=== PATIENT | male | born 1950 | race Caucasian/White ===

== ENCOUNTER 2017-09-10 17:12 | Emergency (ER) | payer BC ==
[2017-09-10] MEDS ORDERED: NA CHLORIDE 0.9% 500 ML ONE (18:05)
--- NOTE | 2017-09-10 18:36 | RAD REPORT ---
EXAM DESCRIPTION: RAD - Chest Single View - 09/10/2017 6:21 pm CLINICAL HISTORY: Chest pain. COMPARISON: 02/09/2011 FINDINGS: Portable technique limits examination quality. The lungs are grossly clear. The heart is normal in size. No displaced fractures. IMPRESSION: No acute intrathoracic process suspected.
[2017-09-10 19:46] LABS: Potassium 3.6 mEq/L (3.6-5.0)
[2017-09-10 19:49] LABS: Absolute Monocytes 0.3 K/uL (0.1-1.3); Absolute Neutrophil 4.7 K/uL (1.8-8.0); Basophils % 0.4 % (0-1.3); Eosinophils % 1.9 % (0-4.4); Hematocrit 39.2 % (39.6-49.0); Lymphocytes % 16.2 % (15.3-44.8); MCH 31.4 pg (27.0-35.0); MPV 7.8 fL (7.6-11.3); Monocytes % 5.2 % (3.3-12.3); RBC Red Blood Cell Count 4.31 M/uL (4.33-5.43)
[2017-09-10 19:57] LABS: CKMB Creatine Kinase MB 1.6 ng/ml (0.3-4.0)
--- NOTE | 2017-09-10 20:24 | EDPHYS ---
Physician Documentation [facility] Name: Ata Ramos Jr Age: 66 yrs Sex: Male : 1950 Arrival Date: 09/10/2017 Time: 17:15 Bed 14 Private MD: ED Physician Mickey Black HPI: 09/10 19:19 This 66 yrs old Male presents to ER via Ambulatory with complaints of Chest rn Pain, Dizziness. 19:19 The patient or guardian reports chest pain that is located primarily in the substernal rn area. Onset: at 12:00. The pain does not radiate. Associated signs and symptoms: Pertinent positives: dizziness, Pertinent negatives: abdominal pain, shortness of breath, syncope, vomiting. The chest pain is described as a heaviness. Duration: The patient or guardian reports a single episode, that lasted 1 minute(s). Modifying factors: The symptoms are alleviated by nothing. the symptoms are aggravated by nothing. Severity of pain: At its worst the pain was moderate in the emergency department the pain has resolved. The patient has not experienced similar symptoms in the past. Reports chest pain for less than 1 minute, assoc with 2 minutes of dizziness, while walking, went away on its own, no fever/cough/sob/abd pain. No current pain or dizziness. Getting radiation therapy for prostate.. Historical: - Allergies: 17:22 Codeine; ae1 - Home Meds: 17:26 gabapentin 100 mg oral cap [Active]; metformin 500 mg Oral tab 1 tab 2 times per day ae1 [Active]; Zytiga 250 mg oral tab 4 tabs once daily [Active]; hydrochlorothiazide 12.5 mg Oral cap 1 cap once daily [Active]; tamsulosin 0.4 mg oral cp24 1 cap once daily [Active]; fenofibrate 160 mg oral tab 1 tab once daily [Active]; metoprolol tartrate 25 mg Oral tab 1 tab 2 times per day [Active]; prednisone 5 mg Oral tab once daily [Active]; - PMHx: 17:22 Cancer; ae1 17:26 neuropathy; Hypertension; ae1 - PSHx: 17:26 Cholecystectomy; Knee surgery; ae1 - Immunization history:: Adult Immunizations up to date, Pneumococcal vaccine is up to date, Flu vaccine is up to date. - Social history:: Smoking status: Patient/guardian denies using tobacco. - Family history:: not pertinent. - Hospitalizations: : No recent hospitalization is reported. ROS: 19:19 Constitutional: Negative for fever, chills, and weight loss, Eyes: Negative for injury, rn pain, redness, and discharge, Neck: Negative for injury, pain, and swelling, Cardiovascular: Negative for edema Respiratory: Negative for shortness of breath, cough, wheezing, and pleuritic chest pain, Abdomen/GI: Negative for abdominal pain, nausea, vomiting, diarrhea, and constipation, Back: Negative for injury and pain, MS/Extremity: Negative for injury and deformity, Skin: Negative for injury, rash, and discoloration, Neuro: Negative for headache, numbness, tingling, and seizure. Exam: 19:19 Constitutional: This is a well developed, well nourished patient who is awake, alert, rn and in no acute distress. Head/Face: Normocephalic, atraumatic. Eyes: Pupils equal round and reactive to light, extra-ocular motions intact. Lids and lashes normal. Conjunctiva and sclera are non-icteric and not injected. Cornea within normal limits. Periorbital areas with no swelling, redness, or edema. Neck: Trachea midline, no thyromegaly or masses palpated, and no cervical lymphadenopathy. Supple, full range of motion without nuchal rigidity, or vertebral point tenderness. No Meningismus. Cardiovascular: Regular rate and rhythm with a normal S1 and S2. No gallops, murmurs, or rubs. Normal PMI, no JVD. No pulse deficits. Respiratory: Lungs have equal breath sounds bilaterally, clear to auscultation and percussion. No rales, rhonchi or wheezes noted. No increased work of breathing, no retractions or nasal flaring. Abdomen/GI: Soft, non-tender, with normal bowel sounds. No distension or tympany. No guarding or rebound. No evidence of tenderness throughout. Skin: Warm, dry with normal turgor. Normal color with no rashes, no lesions, and no evidence of cellulitis. MS/ Extremity: Pulses equal, no cyanosis. Neurovascular intact. Full, normal range of motion. Equal circumference. Neuro: Awake and alert, GCS 15, oriented to person, place, time, and situation. Cranial nerves II-XII grossly intact. Motor strength 5/5 in all extremities. Sensory grossly intact. Cerebellar exam normal. Normal gait. Vital Signs: 17:19 BP 136 / 82; Pulse 92; Resp 18; Temp 97(TE); Pulse Ox 99% on R/A; Weight 102.06 kg (R); ae1 Height 6 ft. (182.88 cm); Pain 2/10; 19:40 BP 140 / 86; Pulse 89; Resp 19 S; Pulse Ox 99% on R/A; Pain 0/10; jd3 17:19 Body Mass Index 30.52 (102.06 kg, 182.88 cm) ae1 MDM: 17:47 Patient medically screened. rn 20:21 ED course: Reports normal stress test and ECHO by dr gotti 2 months ago. Feels fine, rn wants to go home. . 09/10 17:55 Order name: Basic Metabolic Panel; Complete Time: 20:19 rn 09/10 17:55 Order name: CBC with Diff; Complete Time: 20:19 rn 09/10 17:55 Order name: Ckmb; Complete Time: 20:19 rn 09/10 17:55 Order name: CPK; Complete Time: 20:19 rn 09/10 17:55 Order name: Troponin (emerg Dept Use Only); Complete Time: 20:19 rn 09/10 19:50 Order name: Urine Dipstick--Ancillary (enter results) em1 09/10 17:39 Order name: EKG Electrocardiogram; Complete Time: 19:08 EDMS 09/10 17:55 Order name: Urine Dipstick-Ancillary (obtain specimen); Complete Time: 19:49 rn 09/10 17:55 Order name: XRAY Chest (1 view); Complete Time: 18:42 rn 09/10 17:55 Order name: Cardiac monitoring; Complete Time: 19:08 rn 09/10 17:55 Order name: EKG - Nurse/Tech; Complete Time: 19:02 rn 09/10 17:55 Order name: IV Saline Lock; Complete Time: 18:59 rn 09/10 17:55 Order name: Labs collected and sent; Complete Time: 19:02 rn 09/10 17:55 Order name: O2 Per Protocol; Complete Time: 18:59 rn 09/10 17:55 Order name: O2 Sat Monitoring; Complete Time: 18:59 rn Administered Medications: 18:09 Drug: NS 0.9% 500 ml Route: IV; Rate: bolus; Site: right antecubital; rb1 20:30 Follow up: Response: No adverse reaction; IV Status: Completed infusion; IV Intake: jd3 500ml Disposition: 09/10/17 20:23 Discharged to Home. Impression: Chest pain, unspecified, Dizziness and giddiness. - Condition is Stable. - Discharge Instructions: Nonspecific Chest Pain, Dizziness. - Medication Reconciliation Form, Thank You Letter, Antibiotic Education, Prescription Opioid Use form. - Follow up: Private Physician; When: As needed; Reason: Recheck today's complaints, Re-evaluation by your physician. - Problem is new. - Symptoms have improved. Signatures: Dispatcher [employer] EDMS Mickey Black MD MD rn Barber, Rebecca RN RN rb1 Frederick Cruz RN RN ae1 Kunal Neil RN RN jd3
--- NOTE | 2017-09-10 20:24 | ER ---
Nurse's Notes [facility] Name: Ata Ramos Jr Age: 66 yrs Sex: Male : 1950 Arrival Date: 09/10/2017 Time: 17:15 Bed 14 Private MD: Diagnosis: Chest pain, unspecified;Dizziness and giddiness Presentation: 09/10 17:20 Presenting complaint: Patient states: Patient states he started having chest pain while ae1 walking at about noon today. C/o of SOB, dizziness at that time. Describes pain as "pressure". Transition of care: patient was not received from another setting of care. Onset of symptoms was September 10, 2017 at 12:00. 17:20 Method Of Arrival: Ambulatory ae1 17:20 Acuity: TORRES 3 ae1 17:45 Initial Sepsis Screen: Does the patient meet any 2 criteria? No. Patient's initial rb1 sepsis screen is negative. Does the patient have a suspected source of infection? No. Patient's initial sepsis screen is negative. Care prior to arrival: None. Triage Assessment: 17:28 General: Appears in no apparent distress. comfortable, Behavior is calm, cooperative. ae1 Pain: Complains of pain in anterior aspect of right upper chest, anterior aspect of left upper chest, xyphoid area and mid-sternal area. Neuro: Reports Generalized weakness. . Cardiovascular: Patient's skin is warm and dry. Patient is under radiation therapy currently for prostate cancer. Last treatment was today this morning. . Respiratory: Airway is patent Respiratory effort is even, unlabored. Historical: - Allergies: 17:22 Codeine; ae1 - Home Meds: 17:26 gabapentin 100 mg oral cap [Active]; metformin 500 mg Oral tab 1 tab 2 times per day ae1 [Active]; Zytiga 250 mg oral tab 4 tabs once daily [Active]; hydrochlorothiazide 12.5 mg Oral cap 1 cap once daily [Active]; tamsulosin 0.4 mg oral cp24 1 cap once daily [Active]; fenofibrate 160 mg oral tab 1 tab once daily [Active]; metoprolol tartrate 25 mg Oral tab 1 tab 2 times per day [Active]; prednisone 5 mg Oral tab once daily [Active]; - PMHx: 17:22 Cancer; ae1 17:26 neuropathy; Hypertension; ae1 - PSHx: 17:26 Cholecystectomy; Knee surgery; ae1 - Immunization history:: Adult Immunizations up to date, Pneumococcal vaccine is up to date, Flu vaccine is up to date. - Social history:: Smoking status: Patient/guardian denies using tobacco. - Family history:: not pertinent. - Hospitalizations: : No recent hospitalization is reported. Screenin:28 Abuse screen: Denies threats or abuse. Nutritional screening: No deficits noted. ae1 Tuberculosis screening: No symptoms or risk factors identified. Fall Risk None identified. Assessment: 17:45 General: Appears in no apparent distress. comfortable, Behavior is calm, cooperative, rb1 Denies fever. Pain: Complains of pain in chest and lower abdomen Pain does not radiate. Pain currently is 2 out of 10 on a pain scale. Pain began this morning. Neuro: Level of Consciousness is awake, alert, obeys commands, Oriented to person, place, time, situation. Cardiovascular: Capillary refill < 3 seconds is brisk in bilateral fingers. Respiratory: Airway is patent Respiratory effort is even, unlabored, Respiratory pattern is regular, symmetrical. GI: No signs and/or symptoms were reported involving the gastrointestinal system. : No signs and/or symptoms were reported regarding the genitourinary system. Derm: Skin is pink, warm \\T\\ dry. Musculoskeletal: Range of motion: intact in all extremities. 18:40 Reassessment: Patient appears in no apparent distress at this time. No changes from rb1 previously documented assessment. 19:37 Reassessment: Patient appears in no apparent distress at this time. Patient and/or jd3 family updated on plan of care and expected duration. Pain level reassessed. Patient is alert, oriented x 3, equal unlabored respirations, skin warm/dry/pink. Patient denies pain at this time. General: Appears in no apparent distress. comfortable, Behavior is calm, cooperative, appropriate for age. Pain: Denies pain. Pain does not radiate. Pain began 4 hours ago. Neuro: Level of Consciousness is awake, alert, obeys commands, Oriented to person, place, time, situation. Cardiovascular: Capillary refill < 3 seconds Patient's skin is warm and dry. Respiratory: Airway is patent Respiratory effort is even, unlabored, Respiratory pattern is regular, symmetrical. GI: Abdomen is round Patient currently denies abdominal pain. 20:31 Reassessment: Patient appears in no apparent distress at this time. Patient and/or jd3 family updated on plan of care and expected duration. Pain level reassessed. Patient is alert, oriented x 3, equal unlabored respirations, skin warm/dry/pink. pt reported understanding of discharge instructions, even and steady gait upon discharge Patient denies pain at this time. Vital Signs: 17:19 BP 136 / 82; Pulse 92; Resp 18; Temp 97(TE); Pulse Ox 99% on R/A; Weight 102.06 kg (R); ae1 Height 6 ft. (182.88 cm); Pain 2/10; 19:40 BP 140 / 86; Pulse 89; Resp 19 S; Pulse Ox 99% on R/A; Pain 0/10; jd3 17:19 Body Mass Index 30.52 (102.06 kg, 182.88 cm) ae1 ED Course: 17:15 Patient arrived in ED. mr 17:22 Triage completed. ae1 17:27 Arm band placed on right wrist. EKG completed in triage. Results shown to MD. ae1 17:28 Patient maintains SpO2 saturation greater than 95% on room air. ae1 17:31 EKG done, by surgical tech. reviewed by Matthias Cherry MD. at1 17:45 Patient has correct armband on for positive identification. Bed in low position. Call rb1 light in reach. Side rails up X 1. quality assurance monitor body on. Pulse ox on. NIBP on. 17:47 Mickey Black MD is Attending Physician. rn 18:03 Hanny Brand, TERRIE is Primary Nurse. rb1 18:15 Inserted saline lock: 20 gauge in right antecubital area, using aseptic technique. rb1 ,using aseptic technique. Inserted by [facility] parts counter associate Blood collected. 18:20 X-ray completed. Portable x-ray completed in exam room. Patient tolerated procedure kc2 well. 18:21 XRAY Chest (1 view) In Process Unspecified. EDMS 19:00 Report given to TERRIE Abdul. rb1 20:29 No provider procedures requiring assistance completed. IV discontinued, intact, jd3 bleeding controlled, No redness/swelling at site. Pressure dressing applied. Administered Medications: 18:09 Drug: NS 0.9% 500 ml Route: IV; Rate: bolus; Site: right antecubital; rb1 20:30 Follow up: Response: No adverse reaction; IV Status: Completed infusion; IV Intake: jd3 500ml Intake: 20:30 IV: 500ml; Total: 500ml. jd3 Outcome: 20:23 Discharge ordered by . rn 20:30 Discharged to home ambulatory, with family. jd3 20:30 Condition: stable 20:30 Discharge instructions given to patient, family, Instructed on discharge instructions, follow up and referral plans. Demonstrated understanding of instructions, follow-up care. 20:31 Patient left the ED. jd3 Signatures: Dispatcher [employer] [facility] Dominique Kurtz Roman, MD MD rn Mimi jacome, masking machine operator EKG Tat1 Hanny Brand, RN RN rb1 Renee Castle2 Frederick Cruz RN RN ae1 Kunal Neil RN RN jd3 Corrections: (The following items were deleted from the chart) 19:02 18:15 Inserted saline lock: 20 gauge in right antecubital area, using aseptic rb1 technique. Blood collected. rb1
[2017-09-10 20:38] LABS: Urine Blood NEGATIVE (NEG); Urine Glucose NEGATIVE (NEG); Urine Protein NEGATIVE (NEG); Urine Specific Gravity 1.025 (1.005-1.030)
--- NOTE | 2017-09-11 | EKG ---
Test Date: 2017-09-10 Test Time: 17:28:27 Wood Pole Treater: ABELARDO MEASUREMENT RESULTS: Intervals: Rate: 91 ND: 162 QRSD: 96 QT: 390 QTc: 479 [place]: P: 40 ND: 162 QRS: -31 T: 30 INTERPRETIVE STATEMENTS: Normal sinus rhythm Left axis deviation Minimal voltage criteria for LVH, may be normal variant Nonspecific T wave abnormality Prolonged QT Abnormal ECG Compared to ECG 12/10/2014 20:56:09 T-wave abnormality now present Prolonged QT interval now present Electronically Signed On 09-11-17 00:00:25 CDT by Wyatt Morris
== END 2017-09-10 20:31 | disposition home or self-care (01) ==
LOC: ER 17:12
DX: R07.9 Chest pain, unspecified (principal); R42 Dizziness and giddiness; I10 Essential (primary) hypertension; Z88.5 Allergy status to narcotic agent
CPT/HCPCS: 36415; 71045; 80048; 81003; 82550; 82553; 84484; 85025; 93005; 96360; 96361; 99285

== ENCOUNTER 2018-06-14 09:26 | Emergency (ER) | payer BC ==
--- NOTE | 2018-06-14 10:16 | RAD REPORT ---
EXAM DESCRIPTION: CT - Head Brain Wo Cont - 06/14/2018 10:01 am CLINICAL HISTORY: Headache COMPARISON: 2009 TECHNIQUE: Computed axial tomography of the head was obtained. IV contrast was not requested. All CT scans are performed using dose optimization technique as appropriate and may include automated exposure control or mA/KV adjustment according to patient size. FINDINGS: An intracranial bleed is not seen . The ventricles are normal in caliber. No extra-axial fluid collection is noted. Fluid within the sinuses/ mastoids is not seen. IMPRESSION: No acute intracranial abnormality is seen. If patient's symptoms persist MRI of the bra in would be recommended.
[2018-06-14] MEDS ORDERED: KETOROLAC 30 MG/ML INJ ONE (10:35)
[2018-06-14] MEDS ORDERED: METOCLOPRAMIDE 10 MG/2mL INJ ONE (10:35)
[2018-06-14] MEDS ORDERED: NA CHLORIDE 0.9% 500 ML ONE (10:35)
[2018-06-14] MEDS ORDERED: DIPHENHYDRAMINE 50 MG/ML VIAL ONE (10:35)
--- NOTE | 2018-06-14 10:52 | EDPHYS ---
Physician Documentation [facility] Name: Ata Ramos Jr Age: 67 yrs Sex: Male : 1950 Arrival Date: 06/14/2018 Time: 09:30 Bed 5 Private MD: Rick Jones ED Physician Leland Penaloza HPI: 06/14 10:30 This 67 yrs old Male presents to ER via Ambulatory with complaints of pm1 Headache. 10:30 The patient complains of pain to the forehead, left occipital area and right occipital pm1 area. The patient describes the headache as aching, constant. Onset: The symptoms/episode began/occurred 2 day(s) ago. Associated signs and symptoms: Pertinent positives: nausea, Pertinent negatives: dizziness, fever, neck stiffness, paresthesias, vision changes, vomiting, weakness, vertigo. Severity of symptoms: in the emergency department the pain is unchanged. Headache History: Denies prior headaches. The symptoms are alleviated by nothing. the symptoms are aggravated by nothing. The patient has not experienced similar symptoms in the past. The patient has not recently seen a physician, the patient's primary care provider is Dr. Jones. Historical: - Allergies: 09:31 Codeine; aa5 - Home Meds: 09:31 fenofibrate 160 mg Oral tab 1 tab once daily [Active]; gabapentin 100 mg Oral cap aa5 [Active]; hydrochlorothiazide 12.5 mg Oral cap 1 cap once daily [Active]; metformin 500 mg Oral tab 1 tab 2 times per day [Active]; metoprolol tartrate 25 mg Oral tab 1 tab 2 times per day [Active]; prednisone 5 mg Oral tab once daily [Active]; tamsulosin 0.4 mg Oral cp24 1 cap once daily [Active]; Zytiga 250 mg Oral tab 4 tabs once daily [Active]; - PMHx: 09:31 Hypertension; neuropathy; Prostate cancer in remission; Diabetes - NIDDM; "fluid aa5 retention"; - PSHx: 09:31 Cholecystectomy; Knee surgery; aa5 - Immunization history:: Adult Immunizations unknown. - Ebola Screening: : No symptoms or risks identified at this time. - Social history:: Smoking status: unknown. ROS: 10:30 Constitutional: Negative for fever, chills, and weight loss, Eyes: Negative for injury, pm1 pain, redness, and discharge, ENT: Negative for injury, pain, and discharge, Neck: Negative for injury, pain, and swelling, Cardiovascular: Negative for chest pain, palpitations, and edema, Respiratory: Negative for shortness of breath, cough, wheezing, and pleuritic chest pain. 10:30 Back: Negative for injury and pain, : Negative for injury, bleeding, discharge, and swelling, MS/Extremity: Negative for injury and deformity, Skin: Negative for injury, rash, and discoloration, Neuro: Negative for headache, weakness, numbness, tingling, and seizure. 10:30 Abdomen/GI: Positive for nausea, Negative for abdominal pain, vomiting, diarrhea, constipation. Exam: 10:30 Constitutional: This is a well developed, well nourished patient who is awake, alert, pm1 and in no acute distress. Eyes: Pupils equal round and reactive to light, extra-ocular motions intact. Lids and lashes normal. Conjunctiva and sclera are non-icteric and not injected. Cornea within normal limits. Periorbital areas with no swelling, redness, or edema. 10:30 ENT: Nares patent. No nasal discharge, no septal abnormalities noted. Tympanic membranes are normal and external auditory canals are clear. Oropharynx with no redness, swelling, or masses, exudates, or evidence of obstruction, uvula midline. Mucous membranes moist. Neck: Trachea midline, no thyromegaly or masses palpated, and no cervical lymphadenopathy. Supple, full range of motion without nuchal rigidity, or vertebral point tenderness. No Meningismus. Chest/axilla: Normal chest wall appearance and motion. Nontender with no deformity. No lesions are appreciated. Cardiovascular: Regular rate and rhythm with a normal S1 and S2. No gallops, murmurs, or rubs. Normal PMI, no JVD. No pulse deficits. Respiratory: Lungs have equal breath sounds bilaterally, clear to auscultation and percussion. No rales, rhonchi or wheezes noted. No increased work of breathing, no retractions or nasal flaring. Abdomen/GI: Soft, non-tender, with normal bowel sounds. No distension or tympany. No guarding or rebound. No evidence of tenderness throughout. Back: No spinal tenderness. No costovertebral tenderness. Full range of motion. Skin: Warm, dry with normal turgor. Normal color with no rashes, no lesions, and no evidence of cellulitis. MS/ Extremity: Pulses equal, no cyanosis. Neurovascular intact. Full, normal range of motion. 10:30 Head/face: Exam is negative for deformity, swelling, Noted is no obvious of injury or deformity except tenderness, of the forehead, left occipital area and right occipital area. 10:30 Neuro: Orientation: is normal, Mentation: is normal, Cranial nerves: CN II- XII are normal as tested, Cerebellar function: normal finger to nose testing, Motor: is normal, moves all fours, strength is normal, strength is 5/5 in all extremities, Gait: is steady, at a normal pace, without difficulty. Vital Signs: 09:41 BP 175 / 103; Pulse 75; Resp 16 S; Temp 98.1(O); Pulse Ox 97% on R/A; aa5 10:38 BP 171 / 97; Pulse 74; Resp 18; Pulse Ox 98% on R/A; la1 11:10 BP 162 / 96; Pulse 76; Resp 20; Pulse Ox 99% on R/A; aj MDM: 09:33 Patient medically screened. pm1 10:42 Data reviewed: vital signs. Data interpreted: Pulse oximetry: on room air is 98 %. pm1 Interpretation: normal. Counseling: I had a detailed discussion with the patient and/or guardian regarding: the historical points, exam findings, and any diagnostic results supporting the discharge/admit diagnosis, radiology results, the need for outpatient follow up, to return to the emergency department if symptoms worsen or persist or if there are any questions or concerns that arise at home. 10:42 ED course: Pain 07/06 from 03/05. pm1 06/14 09:39 Order name: CT Head Brain wo Cont pm1 06/14 10:17 Order name: CT; Complete Time: 10:23 EDMS Administered Medications: 10:37 Drug: Benadryl 12.5 mg Route: IVP; Site: right hand; la1 11:14 Follow up: Response: Pain is decreased aj 10:37 Drug: NS 0.9% 500 ml Route: IV; Rate: bolus; Site: right hand; la1 11:14 Follow up: Response: No adverse reaction; IV Status: Completed infusion; IV Intake: aj 500ml 10:38 Drug: Reglan 10 mg Route: IVP; Site: right hand; la1 11:12 Follow up: Response: Pain is decreased aj 10:38 Drug: TORadol 15 mg Route: IVP; Site: right hand; la1 11:13 Follow up: Response: Pain is decreased aj Disposition: 06/14/18 10:52 Discharged to Home. Impression: Headache. - Condition is Stable. - Discharge Instructions: General Headache Without Cause, Tension Headache, Adult. - Medication Reconciliation Form, Thank You Letter form. - Follow up: Emergency Department; When: As needed; Reason: Worsening of condition. Follow up: Private Physician; When: 2 - 3 days; Reason: Recheck today's complaints, Continuance of care, Re-evaluation by your physician. - Problem is new. - Symptoms have improved. Addendum: 06/16/2018 07:43 Co-signature as Attending Physician, Leland Penaloza MD I agree with the assessment and c moe plan of care. Signatures: Dispatcher [employer] EDMimi Lopez RN RN aj Anderson, Corey, MD MD cha Calderon, Audri RN RN aa5 Josh Carbajal RN RN la1 Live Arevalo, PROSPECTING DRILLER HELPER PROSPECTING DRILLER HELPER pm1 Corrections: (The following items were deleted from the chart) 06/14 11:15 10:52 06/14/2018 10:52 Discharged to Home. Impression: Headache. Condition is Stable. aj Forms are Medication Reconciliation Form, Thank You Letter, Antibiotic Education, Prescription Opioid Use. Follow up: Emergency Department; When: As needed; Reason: Worsening of condition. Follow up: Private Physician; When: 2 - 3 days; Reason: Recheck today's complaints, Continuance of care, Re-evaluation by your physician. Problem is new. Symptoms have improved. pm1
--- NOTE | 2018-06-14 10:52 | ER ---
Nurse's Notes [facility] Name: Ata Ramos Jr Age: 67 yrs Sex: Male : 1950 Arrival Date: 06/14/2018 Time: 09:30 Bed 5 Private MD: Rick Jones Diagnosis: Headache Presentation: 06/14 09:31 Presenting complaint: Patient states: headache to frontal and occipital area x 2 days aa5 ago. Pt states "I feel like it's hard to catch my breath at times". Pt reports nausea, denies vomiting, denies cough, denies fever. 09:31 Transition of care: patient was not received from another setting of care. Onset of aa5 symptoms was May 2018. Risk Assessment: Do you want to hurt yourself or someone else? Patient reports no desire to harm self or others. Care prior to arrival: None. 09:31 Method Of Arrival: Ambulatory aa5 09:31 Acuity: TORRES 3 aa5 09:42 Initial Sepsis Screen: Does the patient meet any 2 criteria? No. Patient's initial aa5 sepsis screen is negative. Does the patient have a suspected source of infection? No. Patient's initial sepsis screen is negative. Triage Assessment: 09:44 Headache History: The patient has had previous headaches and this one is similar to la1 previous episodes. General: Appears in no apparent distress. Behavior is calm, cooperative. Pain: Complains of pain in left base of the skull and forehead Pain currently is 5 out of 10 on a pain scale. Pain began 2-3 days ago. Also complains of no other associated symptoms. Historical: - Allergies: 09: Codeine; aa5 - Home Meds: 09:31 fenofibrate 160 mg Oral tab 1 tab once daily [Active]; gabapentin 100 mg Oral cap aa5 [Active]; hydrochlorothiazide 12.5 mg Oral cap 1 cap once daily [Active]; metformin 500 mg Oral tab 1 tab 2 times per day [Active]; metoprolol tartrate 25 mg Oral tab 1 tab 2 times per day [Active]; prednisone 5 mg Oral tab once daily [Active]; tamsulosin 0.4 mg Oral cp24 1 cap once daily [Active]; Zytiga 250 mg Oral tab 4 tabs once daily [Active]; - PMHx: 09:31 Hypertension; neuropathy; Prostate cancer in remission; Diabetes - NIDDM; "fluid aa5 retention"; - PSHx: 09:31 Cholecystectomy; Knee surgery; aa5 - Immunization history:: Adult Immunizations unknown. - Ebola Screening: : No symptoms or risks identified at this time. - Social history:: Smoking status: unknown. Screenin:44 Abuse screen: Denies threats or abuse. Nutritional screening: No deficits noted. la1 Tuberculosis screening: No symptoms or risk factors identified. Fall Risk None identified. Assessment: 09:43 General: Appears in no apparent distress. Behavior is calm, cooperative. Pain: la1 Complains of pain in forehead and left base of the skull. Neuro: Level of Consciousness is awake, alert, obeys commands, Oriented to person, place, time, situation, Moves all extremities. Full function Gait is steady, Speech is normal, Facial symmetry appears normal, Pupils are PERRLA. Cardiovascular: Capillary refill < 3 seconds Patient's skin is warm and dry. Respiratory: Airway is patent Respiratory effort is even, unlabored, Respiratory pattern is regular, symmetrical, Breath sounds are clear bilaterally. GI: No signs and/or symptoms were reported involving the gastrointestinal system. : No signs and/or symptoms were reported regarding the genitourinary system. 10:38 Reassessment: Patient appears in no apparent distress at this time. No changes from la1 previously documented assessment. Patient and/or family updated on plan of care and expected duration. Pain level reassessed. Patient is alert, oriented x 3, equal unlabored respirations, skin warm/dry/pink. Vital Signs: 09:41 BP 175 / 103; Pulse 75; Resp 16 S; Temp 98.1(O); Pulse Ox 97% on R/A; aa5 10:38 BP 171 / 97; Pulse 74; Resp 18; Pulse Ox 98% on R/A; la1 11:10 BP 162 / 96; Pulse 76; Resp 20; Pulse Ox 99% on R/A; aj ED Course: 09:30 Patient arrived in ED. mr 09:30 Rick Jones DO is Private Physician. mr 09:31 Arm band placed on Patient placed in an exam room, on a stretcher. aa5 09:32 Live Arevalo NP is PHCP. pm1 09:32 Leland Penaloza MD is Attending Physician. pm1 09:36 Josh Carbajal, RN is Primary Nurse. la1 09:37 Triage completed. aa5 09:44 Call light in reach. Side rails up X 1. la1 10:00 CT completed. Patient moved to CT via wheelchair. Patient moved back from LA. bq 11:10 No provider procedures requiring assistance completed. IV discontinued, bleeding aj controlled, No redness/swelling at site. Pressure dressing applied, 22 to right hand. Administered Medications: 10:37 Drug: Benadryl 12.5 mg Route: IVP; Site: right hand; la1 11:14 Follow up: Response: Pain is decreased aj 10:37 Drug: NS 0.9% 500 ml Route: IV; Rate: bolus; Site: right hand; la1 11:14 Follow up: Response: No adverse reaction; IV Status: Completed infusion; IV Intake: aj 500ml 10:38 Drug: Reglan 10 mg Route: IVP; Site: right hand; la1 11:12 Follow up: Response: Pain is decreased aj 10:38 Drug: TORadol 15 mg Route: IVP; Site: right hand; la1 11:13 Follow up: Response: Pain is decreased aj Intake: 11:14 IV: 500ml; Total: 500ml. aj Outcome: 10:52 Discharge ordered by MD. pm1 11:10 Discharged to home ambulatory. aj 11:10 Condition: good 11:10 Discharge instructions given to patient, Instructed on discharge instructions, follow up and referral plans. Demonstrated understanding of instructions, follow-up care. 11:15 Patient left the ED. aj Signatures: Mimi Latham RN Petra Farrell Meredith Oh Zenobia Walsh RN RN [facility] Josh Carbajal, TERRIE FALCON [facility] Live Arevalo NP GENERAL OFFICE ASSOCIATE pm1
== END 2018-06-14 11:15 | disposition home or self-care (01) ==
LOC: ER 09:26
DX: R51 Headache (principal); I10 Essential (primary) hypertension; Z88.6 Allergy status to analgesic agent
CPT/HCPCS: 70450; J2765

== ENCOUNTER 2018-09-20 09:32 | Emergency (ER) | payer BC ==
[2018-09-20 10:27] LABS: Absolute Lymphocytes (CBC) 1.1 K/uL (0.7-4.9); Absolute Monocytes 0.4 K/uL (0.1-1.3); Absolute Neutrophil 3.7 K/uL (1.8-8.0); Basophils % 1.5 % (0-1.3); Lymphocytes % 20.1 % (15.3-44.8); Monocytes % 7.7 % (3.3-12.3); RBC Red Blood Cell Count 4.37 M/uL (4.33-5.43)
[2018-09-20 10:34] LABS: Potassium 3.9 mmol/L (3.5-5.1)
--- NOTE | 2018-09-20 11:00 | RAD REPORT ---
EXAM DESCRIPTION: CT - Head Brain Wo Cont - 09/20/2018 10:33 am CLINICAL HISTORY: Numbness COMPARISON: May 2018 TECHNIQUE: Computed axial tomography of the head was obtained. IV contrast was not requested. All CT scans are performed using dose optimization technique as appropriate and may include automated exposure control or mA/KV adjustment according to patient size. FINDINGS: An intracranial bleed is not seen . The ventricles are normal in caliber. No extra-axial fluid collection is noted. Fluid within the sinuses/ mastoids is not seen. IMPRESSION: No acute intracranial abnormality is seen. If patient's symptoms persist MRI of the bra in would be recommended.
[2018-09-20] MEDS ORDERED: NA CHLORIDE 0.9% 500 ML ONE ×2 (11:15→12:17)
--- NOTE | 2018-09-20 12:31 | RAD REPORT ---
EXAM DESCRIPTION: Nano Angio09/20/2018 11:59 am CLINICAL HISTORY: Left facial numbness COMPARISON: None TECHNIQUE: 50 cc Isovue 370 was administered intravenously. 3D MIP reconstruction performed All CT scans are performed using dose optimization technique as appropriate and may include automated exposure control or mA/KV adjustment according to patient size. FINDINGS: The common carotid, internal carotid and external carotid arteries bilaterally do not dem onstrate a significant stenosis. Vertebral arteries are codominant. An aneurysm is not seen Spondylosis involves cervical spine resulting in central and foraminal stenosis IMPRESSION: Unremarkable evaluation of the carotid and vertebral arteries NASCET criteria used. Mild 0-49% stenosis Moderate 50-69% stenosis Severe 70-99% stenosis
--- NOTE | 2018-09-20 12:45 | RAD REPORT ---
EXAM DESCRIPTION: CTHead angio09/20/2018 11:59 am CLINICAL HISTORY: Left facial numbness COMPARISON: None TECHNIQUE: CT angiogram of the head was obtained. 3D MIPS reconstruction performed. All CT scans are performed using dose optimization technique as appropriate and may include automated exposure control or mA/KV adjustment according to patient size. FINDINGS: The basilar, internal carotid, anterior cerebral, middle cerebral and posterior cerebral a rteries are normal caliber. An aneurysm is not seen. A significant stenosis is not noted. origin right posterior cerebral artery An 8 millimeter filling defect is present within the right transverse sinus IMPRESSION: 8 millimeter filling defect within the right transverse sinus may indicate thrombus. Ano ther consideration is that this represents a prominent arachnoid granulation. If the patient has clin ical symptoms to suggest thrombus MRI and MRV of the brain would be recommended. Unremarkable MRA brain
--- NOTE | 2018-09-20 13:04 | ER ---
Nurse's Notes [facility] Name: Ata Ramos Jr Age: 67 yrs Sex: Male : 1950 Arrival Date: 09/20/2018 Time: 09:33 Bed 8 Private MD: Diagnosis: Cerebral venous sinus thrombosis;Paresthesia of skin Presentation: 09/20 09:43 Presenting complaint: Patient states: left facial numbness and tingling that he noticed iw when he woke up this morning at 0600, went to bed around 930 pm, pt denies weakness, no facial droop noted. pt also states he has been having neck pain. Transition of care: patient was not received from another setting of care. Onset of symptoms was September 20, 2018. 09:43 Method Of Arrival: Ambulatory iw 09:43 Acuity: TORRES 3 iw 09:44 Risk Assessment: Do you want to hurt yourself or someone else? Patient reports no hj desire to harm self or others. Initial Sepsis Screen: Does the patient meet any 2 criteria? No. Patient's initial sepsis screen is negative. Does the patient have a suspected source of infection? No. Patient's initial sepsis screen is negative. Care prior to arrival: None. Historical: - Allergies: 09:48 Codeine; iw - Home Meds: 09:49 fenofibrate 160 mg Oral tab 1 tab once daily [Active]; gabapentin 100 mg Oral tab iw [Active]; hydrochlorothiazide 12.5 mg Oral tab 1 cap once daily [Active]; metformin 500 mg Oral tab 1 tab 2 times per day [Active]; metoprolol tartrate 25 mg Oral tab 1 tab 2 times per day [Active]; prednisone 5 mg Oral tab once daily [Active]; tamsulosin 0.4 mg Oral cp24 1 cap once daily [Active]; Zytiga 250 mg Oral tab 4 tabs once daily [Active]; - PMHx: 09:48 "fluid retention"; Cancer; Diabetes - NIDDM; Hypertension; neuropathy; Prostate cancer iw in remission; - PSHx: 09:48 Cholecystectomy; Knee surgery; iw - Immunization history:: Adult Immunizations up to date. - Social history:: Smoking status: Patient/guardian denies using tobacco, Patient/guardian denies using alcohol. - Ebola Screening: : Patient negative for fever greater than or equal to 101.5 degrees Fahrenheit, and additional compatible Ebola Virus Disease symptoms Patient denies exposure to infectious person Patient denies travel to an Ebola-affected area in the 21 days before illness onset. - Family history:: not pertinent. - Hospitalizations: : No recent hospitalization is reported. Screenin:44 Abuse screen: Denies threats or abuse. Denies injuries from another. Nutritional hj screening: No deficits noted. Tuberculosis screening: No symptoms or risk factors identified. Fall Risk None identified. Assessment: 09:43 General: Appears in no apparent distress. uncomfortable, Behavior is calm, cooperative, hj appropriate for age. Pain: Complains of pain in sinuses. Neuro: Level of Consciousness is awake, alert, obeys commands, Oriented to person, place, time, situation, Appropriate for age Reports numbness in left cheek and left jaw Denies weakness blurred vision dizziness, difficulty swallowing, paresthesias diplopia. Cardiovascular: Capillary refill < 3 seconds Patient's skin is warm and dry. Respiratory: Airway is patent Respiratory effort is even, unlabored, Respiratory pattern is regular, symmetrical. GI: No signs and/or symptoms were reported involving the gastrointestinal system. : No signs and/or symptoms were reported regarding the genitourinary system. EENT: No signs and/or symptoms were reported regarding the EENT system. Derm: No signs and/or symptoms reported regarding the dermatologic system. Musculoskeletal: No signs and/or symptoms reported regarding the musculoskeletal system. 10:30 Reassessment: Patient and/or family updated on plan of care and expected duration. Pain hj level reassessed. Patient is alert, oriented x 3, equal unlabored respirations, skin warm/dry/pink. awaiting results and POC;. 11:30 Reassessment: Patient and/or family updated on plan of care and expected duration. Pain hj level reassessed. Patient is alert, oriented x 3, equal unlabored respirations, skin warm/dry/pink. Patient states feeling better. 12:08 Reassessment: Patient and/or family updated on plan of care and expected duration. Pain hj level reassessed. Patient is alert, oriented x 3, equal unlabored respirations, skin warm/dry/pink. awaiting results of CT angio and POC:. 14:07 Reassessment: report given to Ruth Alcantar RN. hj Vital Signs: 09:48 BP 167 / 96; Pulse 93; Resp 16; Pulse Ox 97% on R/A; Weight 104.33 kg; Height 6 ft. iw (182.88 cm); Pain 0/10; 09:48 BP 167 / 96; Pulse 85; Resp 18; Temp 97.1(TE); Pulse Ox 96% on R/A; Weight 104.33 kg; hj Height 6 ft. 0 in. (182.88 cm); Pain 0/10; 10:17 BP 185 / 93; Pulse 84; Resp 18; Pulse Ox 100% on R/A; hj 12:08 BP 168 / 89; Pulse 85; Resp 18; Pulse Ox 100% on R/A; hj 13:09 BP 155 / 90; Pulse 85; Resp 18; Pulse Ox 98% on R/A; hj 09:48 Body Mass Index 31.19 (104.33 kg, 182.88 cm) iw ED Course: 09:33 Patient arrived in ED. as 09:41 Jaspreet Ansari, RN is Primary Nurse. hj 09:44 Arm band placed on right wrist. hj 09:45 Mickey Black MD is Attending Physician. rn 09:45 Patient has correct armband on for positive identification. Bed in low position. Call hj light in reach. Side rails up X 1. 09:47 Triage completed. iw 10:15 Initial lab(s) drawn, by me, sent to lab. Inserted saline lock: 20 gauge in right hj antecubital area, using aseptic technique. Blood collected. 10:17 CBC with Diff Sent. hj 10:17 Basic Metabolic Panel Sent. hj 10:24 CT completed. Patient tolerated procedure well. Patient moved back from CT. bq 10:25 EKG done, by ED staff, reviewed by Mickey Black MD. jb1 10:34 CT Head Brain wo Cont In Process Unspecified. EDMS 11:59 CT Head Angio In Process Unspecified. EDMS 11:[address] In Process Unspecified. EDMS 12:58 transfer initiated with Asya at the [facility] transfer center. eb 13:[address] Rico the neurologist communications superintendent from [facility] with Dr. Black for eb patient transfer consultation. 13:[address] Delvalle the hospitalist communications superintendent from [facility] with Dr. Black for eb patient transfer consultation. 13:28 administrative approval given by Asya Penaloza at the [facility] center/ Dr. clive Delvalle has accepted the patient in transfer at [facility]/ Bed 2247/ report to be called to [phone]. 14:04 No provider procedures requiring assistance completed. Patient transferred, IV remains hj in place. intact. Administered Medications: 11:00 Drug: NS 0.9% 500 ml Route: IV; Rate: bolus; Site: right antecubital; hj 12:00 Follow up: IV Status: Completed infusion; IV Intake: 500ml hj 12:02 Drug: NS 0.9% 500 ml Route: IV; Rate: bolus; Site: right antecubital; hj 13:00 Follow up: IV Status: Completed infusion; IV Intake: 500ml hj 13:01 Drug: PlaVIX 75 mg Route: PO; hj 13:06 Follow up: Response: No adverse reaction hj Intake: 12:00 IV: 500ml; Total: 500ml. hj 13:00 IV: 500ml; Total: 1000ml. hj Outcome: 13:03 ER care complete, transfer ordered by . rn 14:04 Transferred by ground EMS to [facility], Transfer form completed. hj X-rays sent w/ patient. 14:04 Condition: stable 14:04 Instructed on the need for transfer, Demonstrated understanding of instructions. 14:45 Patient left the ED. Signatures: Dispatcher [employer] EDMS Sourav Garcia Betty bq Martinez, Amelia as Williams, Irene, RN RN iw Nieto, Roman, MD MD rn Joaquin, Henry, RN RN hj Botello, Elizabeth eb Corrections: (The following items were deleted from the chart) 09:47 09:43 Neuro: Level of Consciousness is awake, alert, obeys commands, Oriented to person, place, time, situation, Appropriate for age hj 09:48 09:43 Presenting complaint: Patient states: left facial numbness and tingling that he iw noticed when he woke up this morning at 0600, went to bed around 930 pm, pt denies weakness, no facial droop noted iw 13:10 13:09 BP 140 / 89; Pulse 85bpm; Resp 18bpm; Pulse Ox 100% RA; hj hj
--- NOTE | 2018-09-20 13:04 | EDPHYS ---
Physician Documentation [facility] Name: Ata Ramos Jr Age: 67 yrs Sex: Male : 1950 Arrival Date: 09/20/2018 Time: 09:33 Bed 8 Private MD: ED Physician Mickey Black HPI: 09/20 10:12 This 67 yrs old Male presents to ER via Ambulatory with complaints of rn Numbness Of Face. 10:12 The patient's problem is reported as paresthesias, in left side of face. Onset: The rn symptoms/episode began/occurred at an unknown time. Context: symptoms became apparent upon waking. The symptoms are alleviated by nothing. The symptoms are aggravated by nothing. Severity of symptoms: At their worst the symptoms were mild in the emergency department the symptoms are unchanged. The patient has not experienced similar symptoms in the past. The patient has not recently seen a physician. Reports woke up with left facial numbness, no weakness, no trauma, no fever, no vision changes. No speech problems. Denies dental complaints or swelling.. Historical: - Allergies: 09:48 Codeine; iw - Home Meds: 09:49 fenofibrate 160 mg Oral tab 1 tab once daily [Active]; gabapentin 100 mg Oral tab iw [Active]; hydrochlorothiazide 12.5 mg Oral tab 1 cap once daily [Active]; metformin 500 mg Oral tab 1 tab 2 times per day [Active]; metoprolol tartrate 25 mg Oral tab 1 tab 2 times per day [Active]; prednisone 5 mg Oral tab once daily [Active]; tamsulosin 0.4 mg Oral cp24 1 cap once daily [Active]; Zytiga 250 mg Oral tab 4 tabs once daily [Active]; - PMHx: 09:48 "fluid retention"; Cancer; Diabetes - NIDDM; Hypertension; neuropathy; Prostate cancer iw in remission; - PSHx: 09:48 Cholecystectomy; Knee surgery; iw - Immunization history:: Adult Immunizations up to date. - Social history:: Smoking status: Patient/guardian denies using tobacco, Patient/guardian denies using alcohol. - Ebola Screening: : Patient negative for fever greater than or equal to 101.5 degrees Fahrenheit, and additional compatible Ebola Virus Disease symptoms Patient denies exposure to infectious person Patient denies travel to an Ebola-affected area in the 21 days before illness onset. - Family history:: not pertinent. - Hospitalizations: : No recent hospitalization is reported. ROS: 10:12 Constitutional: Negative for fever, chills, and weight loss, Eyes: Negative for injury, rn pain, redness, and discharge, Neck: Negative for injury, pain, and swelling, Cardiovascular: Negative for chest pain, palpitations, and edema, Respiratory: Negative for shortness of breath, cough, wheezing, and pleuritic chest pain, Abdomen/GI: Negative for abdominal pain, nausea, vomiting, diarrhea, and constipation, MS/Extremity: Negative for injury and deformity, Skin: Negative for injury, rash, and discoloration, Neuro: Negative for headache, weakness, and seizure. Exam: 10:12 Constitutional: This is a well developed, well nourished patient who is awake, alert, rn and in no acute distress. Head/Face: Normocephalic, atraumatic. Eyes: Pupils equal round and reactive to light, extra-ocular motions intact. Lids and lashes normal. Conjunctiva and sclera are non-icteric and not injected. Cornea within normal limits. Periorbital areas with no swelling, redness, or edema. ENT: No facial swelling, no oral swelling Neck: Trachea midline, no thyromegaly or masses palpated, and no cervical lymphadenopathy. Supple, full range of motion without nuchal rigidity, or vertebral point tenderness. No Meningismus. Skin: Warm, dry with normal turgor. Normal color with no rashes, no lesions, and no evidence of cellulitis. MS/ Extremity: Pulses equal, no cyanosis. Neurovascular intact. Full, normal range of motion. Equal circumference. Neuro: Awake and alert, GCS 15, oriented to person, place, time, and situation. + left cheek/jawline paresthesias. No facial droop. Motor strength 5/5 in all extremities. Sensory grossly intact. Cerebellar exam normal. 11:42 ECG was reviewed by the Attending Physician. rn Vital Signs: 09:48 BP 167 / 96; Pulse 93; Resp 16; Pulse Ox 97% on R/A; Weight 104.33 kg; Height 6 ft. iw (182.88 cm); Pain 0/10; 09:48 BP 167 / 96; Pulse 85; Resp 18; Temp 97.1(TE); Pulse Ox 96% on R/A; Weight 104.33 kg; hj Height 6 ft. 0 in. (182.88 cm); Pain 0/10; 10:17 BP 185 / 93; Pulse 84; Resp 18; Pulse Ox 100% on R/A; hj 12:08 BP 168 / 89; Pulse 85; Resp 18; Pulse Ox 100% on R/A; hj 13:09 BP 155 / 90; Pulse 85; Resp 18; Pulse Ox 98% on R/A; hj 09:48 Body Mass Index 31.19 (104.33 kg, 182.88 cm) iw MDM: 09:45 Patient medically screened. rn 13:01 Differential diagnosis: CVA, TIA, metabolic disorder. Data reviewed: vital signs, rn nurses notes, lab test result(s), EKG, radiologic studies, CT scan, and as a result, I will admit patient. Counseling: I had a detailed discussion with the patient and/or guardian regarding: the historical points, exam findings, and any diagnostic results supporting the discharge/admit diagnosis, lab results, radiology results, the need to transfer to another facility, for higher level of care, [facility] does not immediately have the required specialist. Response to treatment: the patient's symptoms have mildly improved after treatment. ED course: Pt with normal ct head, is outside of TPA window due to waking up with symptoms, mildly improved, but CTA head shows filling defect in transverse sinus, trying to organize transfer to [facility] for neurology. . 09/20 10:03 Order name: CBC with Diff; Complete Time: 11:00 09/20 10:03 Order name: Basic Metabolic Panel; Complete Time: 11:00 09/20 10:03 Order name: CT Head Brain wo Cont; Complete Time: 11:06 rn 09/20 11:12 Order name: CT Head Angio; Complete Time: 12:49 rn 09/20 11:12 Order name: Neck Angio CT; Complete Time: 12:49 rn 09/20 10:03 Order name: IV Start; Complete Time: 10:15 09/20 10:03 Order name: EKG; Complete Time: 10:03 09/20 10:03 Order name: EKG - Nurse/Tech; Complete Time: 10:15 rn EC:42 Rate is 84 beats/min. Rhythm is regular. QRS [place] is Normal. IN interval is normal. QRS rn interval is normal. T waves are Normal. No ST changes noted. Clinical impression: NSR w/ Non-specific ST/T Changes. Interpreted by me. Administered Medications: 11:00 Drug: NS 0.9% 500 ml Route: IV; Rate: bolus; Site: right antecubital; hj 12:00 Follow up: IV Status: Completed infusion; IV Intake: 500ml hj 12:02 Drug: NS 0.9% 500 ml Route: IV; Rate: bolus; Site: right antecubital; hj 13:00 Follow up: IV Status: Completed infusion; IV Intake: 500ml hj 13:01 Drug: PlaVIX 75 mg Route: PO; hj 13:06 Follow up: Response: No adverse reaction Disposition: 09/20/18 13:03 Transfer ordered to [facility]. Diagnosis are Cerebral venous sinus thrombosis, Paresthesia of skin. - Reason for transfer: Higher level of care. - Accepting physician is Dr. Rico. - Condition is Stable. - Problem is new. - Symptoms have improved. Signatures: Dispatcher [employer] Marcy Tong RN RN iw Nieto, Roman, MD MD rn Joaquin, Henry, RN RN Corrections: (The following items were deleted from the chart) 13:24 13:03 09/20/2018 13:03 Transfer ordered to [facility]. Diagnosis is rn Cerebral venous sinus thrombosis; Paresthesia of skin. Reason for transfer: Higher level of care. Accepting physician is . Condition is Stable. Problem is new. Symptoms have improved. rn 14:45 13:24 09/20/2018 13:03 Transfer ordered to [facility]. Diagnosis is hj Cerebral venous sinus thrombosis; Paresthesia of skin. Reason for transfer: Higher level of care. Accepting physician is Dr. Rico. Condition is Stable. Problem is new. Symptoms have improved. rn
[2018-09-20] MEDS ORDERED: CLOPIDOGREL 75 MG TABLET ONE (13:17)
--- NOTE | 2018-09-21 07:49 | EKG ---
Test Date: 2018-09-20 Test Time: 10:17:32 Systems Support Officer: HANH MEASUREMENT RESULTS: Intervals: Rate: 84 MI: 150 QRSD: 92 QT: 382 QTc: 451 Clark: P: 43 MI: 150 QRS: -26 T: -1 INTERPRETIVE STATEMENTS: Normal sinus rhythm Voltage criteria for left ventricular hypertrophy Nonspecific ST abnormality Abnormal ECG Compared to ECG 09/10/2017 17:28:27 ST (T wave) deviation now present Left-axis deviation no longer present T-wave abnormality no longer present Prolonged QT interval no longer present Electronically Signed On 09-21-18 07:47:33 CDT by Alok Pedraza
== END 2018-09-20 14:45 | disposition short-term general hospital (02) ==
LOC: ER 09:32
DX: G08 Intracranial and intraspinal phlebitis and thrombophlebitis (principal); I10 Essential (primary) hypertension; E11.9 Type 2 diabetes mellitus without complications; Z85.46 Personal history of malignant neoplasm of prostate; Z88.5 Allergy status to narcotic agent
CPT/HCPCS: 36415; 70450; 70496; 70498; 80048; 85025; 93005; 96360; 96361; 99285; Q9967

== ENCOUNTER 2019-05-26 21:02 | Observation (INO) | payer BC ==
--- OUTSIDE RECORDS SUMMARY | 2019-05-26 21:04 | XMS REPORT ---
:1950 [facility] [address] [place] [address] Care Team Providers Name Role Phone JUANITA EMMANUEL Unavailable Unavailable HENRIK MARINO Unavailable Unavailable Problems This patient has no known problems. Allergies, Adverse Reactions, Alerts This patient has no known allergies or adverse reactions. Medications This patient has no known medications. Results Test Description Test Time Test Comments Text Results Atomic Results Result Comments CT, ABDOMEN 2019-04-13 10:33:[address] of the chest, abdomen and pelvis, with contrast Clinical History: C61 Technique: CT of the chest, abdomen and pelvis is performed with intravenous contrast administration. This exam was performed according to our departmental dose optimization program which includes automated exposure control, adjustment of the mA and/or kV according to patient's size and/or use of iterative reconstructive technique. Comparison Film: None Discussion: Visualized thyroid gland is normal. There is no supraclavicular, axillary, mediastinal or hilar lymphadenopathy. Heart and pericardium is unremarkable. There are a few calcified granulomas in both lungs. No mass or consolidation, no pleural effusion. The central airways are patent, no bronchiectasis, or bronchial wall thickening. Liver is fatty. No biliary ductal dilatation, gallbladder has been removed. The spleen, pancreas, adrenal glands are unremarkable. Kidneys demonstrate no mass, or hydronephrosis. There is a 2 mm nonobstructive stone in the left kidney. A small cortical defect is also seen on the left. No evidence of bowel obstruction, or abnormal bowel wall thickening. There is mild colonic diverticulosis, no evidence of acute diverticulitis. Normal appendix. In the pelvis, bladder is decompressed and unremarkable. Prostate gland contains three small metallic densities likely reflecting fiducial markers. There is wqbk-ey-pasivhdl vascular calcification. No lymphadenopathy, or ascites. Osseous structures demonstrate degenerative changes. Impression: No evidence of lymphadenopathy or distant metastasis in the chest abdomen or pelvis. Hepatic steatosis. Status post cholecystectomy. 2 mm nonobstructive stone in the left kidney. Mild colonic diverticulosis. Signed: Ranjit Earlyeport Verified Date/Time: 04/13/2019 10:33:48 Reading Location: [address] Ortho Consult Reading Room , CHEST, WITH IV CONTRAST 2019-04-13 10:33:[address] of the chest, abdomen and pelvis, with contrast Clinical History: C61 Technique: CT of the chest, abdomen and pelvis is performed with intravenous contrast administration. This exam was performed according to our departmental dose optimization program which includes automated exposure control, adjustment of the mA and/or kV according to patient's size and/or use of iterative reconstructive technique. Comparison Film: None Discussion: Visualized thyroid gland is normal. There is no supraclavicular, axillary, mediastinal or hilar lymphadenopathy. Heart and pericardium is unremarkable. There are a few calcified granulomas in both lungs. No mass or consolidation, no pleural effusion. The central airways are patent, no bronchiectasis, or bronchial wall thickening. Liver is fatty. No biliary ductal dilatation, gallbladder has been removed. The spleen, pancreas, adrenal glands are unremarkable. Kidneys demonstrate no mass, or hydronephrosis. There is a 2 mm nonobstructive stone in the left kidney. A small cortical defect is also seen on the left. No evidence of bowel obstruction, or abnormal bowel wall thickening. There is mild colonic diverticulosis, no evidence of acute diverticulitis. Normal appendix. In the pelvis, bladder is decompressed and unremarkable. Prostate gland contains three small metallic densities likely reflecting fiducial markers. There is jakb-up-spjgqtcx vascular calcification. No lymphadenopathy, or ascites. Osseous structures demonstrate degenerative changes. Impression: No evidence of lymphadenopathy or distant metastasis in the chest abdomen or pelvis. Hepatic steatosis. Status post cholecystectomy. 2 mm nonobstructive stone in the left kidney. Mild colonic diverticulosis. Signed: Ranjit Earlyeport Verified Date/Time: 04/13/2019 10:33:48 Reading Location: [address] Ortho Consult Reading Room -CREATININE 2019-04-10 14:34:00 Test Item Value Reference Range Comments POC-CREATININE (BEAKER) (test 1.0 mg/dL 0.6-1.[address] [facility] 7200 uolb=4317) [facility] [address] POC-EGFR (BEAKER) (test 75 mL/min/1.73M2 ocjt=0855) [id number] 07:33:00 Test Item Value Reference Range Comments MAGNESIUM (BEAKER) (test 1.9 mg/dL 1.6-2.6 Specimen slightly hemolyzed icsd=880) BASIC METABOLIC [id number] 06:04:00 Test Item Value Reference Range Comments SODIUM (BEAKER) (test 139 meq/L 136-145 dphl=420) POTASSIUM (BEAKER) (test 3.9 meq/L 3.5-5.1 Specimen slightly qsjq=537) hemolyzed CHLORIDE (BEAKER) (test 104 meq/L 98-107 mxla=338) CO2 (BEAKER) (test 25 meq/L 22-29 ippv=051) BLOOD UREA NITROGEN 19 mg/dL 7-21 (BEAKER) (test zpbn=901) CREATININE (BEAKER) (test 0.94 mg/dL 0.57-1.25 Specimen slightly awdp=468) hemolyzed GLUCOSE RANDOM (BEAKER) 160 mg/dL 70-105 (test atia=755) CALCIUM (BEAKER) (test 9.5 mg/dL 8.4-10.2 xksx=045) EGFR (BEAKER) (test 81 mL/min/1.73 sq m ESTIMATED GFR IS NOT hmul=9941) ACCURATE CREATININE CLEARANCE IN PREDICTING GLOMERULAR FILTRATION RATE. ESTIMATED GFR IS NOT APPLICABLE FOR DIALYSIS PATIENTS. CBC W/PLT COUNT & AUTO [id number] 05:43:00 Test Item Value Reference Range Comments WHITE BLOOD CELL COUNT (BEAKER) (test henv=265) 5.2 K/ L 3.5-10.5 RED BLOOD CELL COUNT (BEAKER) (test boyr=577) 4.00 M/ L 4.63-6.08 HEMOGLOBIN (BEAKER) (test ecdg=375) 12.5 GM/DL 13.7-17.5 HEMATOCRIT (BEAKER) (test qkuf=490) 36.6 % 40.1-51.0 MEAN CORPUSCULAR VOLUME (BEAKER) (test djby=670) 91.5 fL 79.0-92.2 MEAN CORPUSCULAR HEMOGLOBIN (BEAKER) (test 31.3 pg 25.7-32.2 cygj=959) MEAN CORPUSCULAR HEMOGLOBIN CONC (BEAKER) (test 34.2 GM/DL 32.3-36.5 cltf=276) RED CELL DISTRIBUTION WIDTH (BEAKER) (test 12.8 % 11.6-14.4 nqhn=331) PLATELET COUNT (BEAKER) (test tgnm=413) 266 K/CU MM 150-450 MEAN PLATELET VOLUME (BEAKER) (test yezx=090) 8.8 fL 9.4-12.4 NUCLEATED RED BLOOD CELLS (BEAKER) (test 0 /100 WBC 0-0 wgrm=611) NEUTROPHILS RELATIVE PERCENT (BEAKER) (test 64 % fndy=458) LYMPHOCYTES RELATIVE PERCENT (BEAKER) (test 23 % utbu=423) MONOCYTES RELATIVE PERCENT (BEAKER) (test 8 % ytdq=597) EOSINOPHILS RELATIVE PERCENT (BEAKER) (test 4 % rwtc=168) BASOPHILS RELATIVE PERCENT (BEAKER) (test 1 % ircd=324) NEUTROPHILS ABSOLUTE COUNT (BEAKER) (test 3.32 K/ L 1.78-5.38 bzvp=113) LYMPHOCYTES ABSOLUTE COUNT (BEAKER) (test 1.18 K/ L 1.32-3.57 jctu=925) MONOCYTES ABSOLUTE COUNT (BEAKER) (test 0.44 K/ L 0.30-0.82 lvgi=045) EOSINOPHILS ABSOLUTE COUNT (BEAKER) (test 0.19 K/ L 0.04-0.54 rqdt=041) BASOPHILS ABSOLUTE COUNT (BEAKER) (test 0.05 K/ L 0.01-0.08 moyq=583) IMMATURE GRANULOCYTES-RELATIVE PERCENT (BEAKER) 1 % 0-1 (test duls=6103) MR, MRA, BRAIN, WITHOUT [id number] 13:25:00Reason for exam:-> StrokeWhat is the patient's sedation requirement?->No SedationIs the patientclaustrophobic?->NoFINAL REPORT MRI brain Comparison: No priors Reason for exam: Stroker/o CVA Discussion: Sagittal and coronal T1, axial FLAIR, T2, gradient echo T2 star, diffusion sequences and ADC map images of the brain are provided. Exam is motion degraded. Is underlying for this limitation,there are no intracranial hematomas, mass effect, hydrocephalus, shift, or extra-axial collections. Brain volume is age concordant. There is a mild degree of supratentorial white matter chronic microvascular ischemic change. There are no areas of abnormal diffusion restriction. Flow-voids are seen in the basilar and internal carotid arteries as well as in the large posterior dural sinuses. The pineal, sella, and craniocervical junction regions are within normal limits. The visualized orbital contents, skullbase and surrounding soft tissues are unremarkable. The visualized paranasal sinuses and mastoid air cells are unremarkable. Impressions :No evidence of acute infarct. Mild involutional and chronic white matter microvascular ischemic changes. Motion degraded exam. MRA head Comparison: No priors Reason for exam: Stroke evaluation Discussion: 3-D uddf-bg-qekani MRA of the head was providedwith maximal intensity projection 3-D reconstructions of the intracranial arterial vasculatures. Exam is markedly limited by motion degradation. No definite evidence of major branch vessel occlusion orcritical stenosis. No large aneurysm is identified. There is persistence of right posterior circulation. Diminished flow in the right P2 segment is probably due to vessel tortuosity and motion. Signed: Ranjit Early Verified Date/Time: 09/21/2018 13:25:57 Reading Location: [address] Neuro Reading Room 01: 25 PMMR, BRAIN, WITHOUT [id number] 13:25:00Reason for exam:-> StrokeWhat is the patient's sedation requirement?->No SedationIs the patientclaustrophobic?->NoFINAL REPORT MRI brain Comparison: No priors Reason for exam: Stroker/o CVA Discussion: Sagittal and coronal T1, axial FLAIR, T2, gradient echo T2 star, diffusion sequences and ADC map images of the brain are provided. Exam is motion degraded. Is underlying for this limitation,there are no intracranial hematomas, mass effect, hydrocephalus, shift, or extra-axial collections. Brain volume is age concordant. There is a mild degree of supratentorial white matter chronic microvascular ischemic change. There are no areas of abnormal diffusion restriction. Flow-voids are seen in the basilar and internal carotid arteries as well as in the large posterior dural sinuses. The pineal, sella, and craniocervical junction regions are within normal limits. The visualized orbital contents, skullbase and surrounding soft tissues are unremarkable. The visualized paranasal sinuses and mastoid air cells are unremarkable. Impressions :No evidence of acute infarct. Mild involutional and chronic white matter microvascular ischemic changes. Motion degraded exam. MRA head Comparison: No priors Reason for exam: Stroke evaluation Discussion: 3-D vnat-vz-sqqtht MRA of the head was providedwith maximal intensity projection 3-D reconstructions of the intracranial arterial vasculatures. Exam is markedly limited by motion degradation. No definite evidence of major branch vessel occlusion orcritical stenosis. No large aneurysm is identified. There is persistence of right posterior circulation. Diminished flow in the right P2 segment is probably due to vessel tortuosity and motion. Signed: Ranjti Earlyfreeman [facility] Verified Date/Time: 09/21/2018 13:25:57 Reading Location: [address] Neuro Reading Room 01: 25 PMHEMOGLOBIN [id number] 07:25:00 Test Item Value Reference Range Comments HEMOGLOBIN A1C (BEAKER) (test iwjf=680) 7.2 % 4.3-6.1 BASIC METABOLIC [id number] 07:08:00 Test Item Value Reference Range Comments SODIUM (BEAKER) (test 137 meq/L 136-145 lzri=592) POTASSIUM (BEAKER) (test 3.6 meq/L 3.5-5.1 zgyu=992) CHLORIDE (BEAKER) (test 104 meq/L 98-107 fkbx=941) CO2 (BEAKER) (test 22 meq/L 22-29 krsc=142) BLOOD UREA NITROGEN 23 mg/dL 7-21 (BEAKER) (test qeqz=801) CREATININE (BEAKER) (test 1.02 mg/dL 0.57-1.25 vcet=317) GLUCOSE RANDOM (BEAKER) 156 mg/dL 70-105 (test nfow=612) CALCIUM (BEAKER) (test 9.5 mg/dL 8.4-10.2 duhd=246) EGFR (BEAKER) (test 73 mL/min/1.73 sq m ESTIMATED GFR IS NOT xsfp=6381) ACCURATE CREATININE CLEARANCE IN PREDICTING GLOMERULAR FILTRATION RATE. ESTIMATED GFR IS NOT APPLICABLE FOR DIALYSIS PATIENTS. LIPID [id number] 07:08:00 Test Item Value Reference Range Comments TRIGLYCERIDES (BEAKER) (test xwrl=209) 606 mg/dL CHOLESTEROL (BEAKER) (test hkdu=525) 149 mg/dL HDL CHOLESTEROL (BEAKER) (test belc=448) 27 mg/dL Calculated LDL not valid if triglyceride >400 mg/dLTriglyceride Reference Range: Low Risk <150 Borderline 150-199 High Risk 200-499 Very High Risk >=500Cholesterol Reference Range: Low Risk <200 Borderline 200-239 High Risk >240HDL Cholesterol Reference Range: Low Risk >=60 High Risk <40LDL Cholesterol ReferenceRange: Optimal <100 Near Optimal 100-129 Borderline 130-159 High 160-189 Very High >=190CBC W/PLT COUNT & amp; AUTO [id number] 06:09:00 Test Item Value Reference Range Comments WHITE BLOOD CELL COUNT (BEAKER) (test utii=419) 4.8 K/ L 3.5-10.5 RED BLOOD CELL COUNT (BEAKER) (test vtfo=644) 4.00 M/ L 4.63-6.08 HEMOGLOBIN (BEAKER) (test yopm=844) 12.2 GM/DL 13.7-17.5 HEMATOCRIT (BEAKER) (test sbku=526) 37.4 % 40.1-51.0 MEAN CORPUSCULAR VOLUME (BEAKER) (test ecqw=303) 93.5 fL 79.0-92.2 MEAN CORPUSCULAR HEMOGLOBIN (BEAKER) (test 30.5 pg 25.7-32.2 pwkt=096) MEAN CORPUSCULAR HEMOGLOBIN CONC (BEAKER) (test 32.6 GM/DL 32.3-36.5 pjto=968) RED CELL DISTRIBUTION WIDTH (BEAKER) (test 13.1 % 11.6-14.4 ajbk=935) PLATELET COUNT (BEAKER) (test tyxx=981) 280 K/CU MM 150-450 MEAN PLATELET VOLUME (BEAKER) (test ezih=513) 8.9 fL 9.4-12.4 NUCLEATED RED BLOOD CELLS (BEAKER) (test 0 /100 WBC 0-0 jxta=943) NEUTROPHILS RELATIVE PERCENT (BEAKER) (test 61 % akvp=596) LYMPHOCYTES RELATIVE PERCENT (BEAKER) (test 22 % drns=573) MONOCYTES RELATIVE PERCENT (BEAKER) (test 11 % cjts=942) EOSINOPHILS RELATIVE PERCENT (BEAKER) (test 4 % zhsq=629) BASOPHILS RELATIVE PERCENT (BEAKER) (test 2 % stll=877) NEUTROPHILS ABSOLUTE COUNT (BEAKER) (test 2.90 K/ L 1.78-5.38 zkol=402) LYMPHOCYTES ABSOLUTE COUNT (BEAKER) (test 1.06 K/ L 1.32-3.57 bpxx=002) MONOCYTES ABSOLUTE COUNT (BEAKER) (test 0.50 K/ L 0.30-0.82 jcnn=671) EOSINOPHILS ABSOLUTE COUNT (BEAKER) (test 0.21 K/ L 0.04-0.54 sqbv=189) BASOPHILS ABSOLUTE COUNT (BEAKER) (test 0.07 K/ L 0.01-0.08 eoie=054) IMMATURE GRANULOCYTES-RELATIVE PERCENT (BEAKER) 0 % 0-1 (test pbrh=8202) [id number] 19:53:00 Test Item Value Reference Range Comments MAGNESIUM (BEAKER) (test 2.0 mg/dL 1.6-2.6 Specimen slightly hemolyzed nwdn=500) BASIC METABOLIC [id number] 19:53:00 Test Item Value Reference Range Comments SODIUM (BEAKER) (test 140 meq/L 136-145 phjc=372) POTASSIUM (BEAKER) (test 4.1 meq/L 3.5-5.1 Specimen slightly yyns=533) hemolyzed CHLORIDE (BEAKER) (test 104 meq/L 98-107 shkf=529) CO2 (BEAKER) (test 24 meq/L 22-29 zgtp=825) BLOOD UREA NITROGEN 23 mg/dL 7-21 (BEAKER) (test nane=910) CREATININE (BEAKER) (test 1.10 mg/dL 0.57-1.25 Specimen slightly pfjs=576) hemolyzed GLUCOSE RANDOM (BEAKER) 135 mg/dL 70-105 (test dqpw=381) CALCIUM (BEAKER) (test 10.3 mg/dL 8.4-10.2 zbkb=903) EGFR (BEAKER) (test 67 mL/min/1.73 sq m ESTIMATED GFR IS NOT ojnm=5169) ACCURATE CREATININE CLEARANCE IN PREDICTING GLOMERULAR FILTRATION RATE. ESTIMATED GFR IS NOT APPLICABLE FOR DIALYSIS PATIENTS. CBC W/PLT COUNT & AUTO [id number] 19:35:00 Test Item Value Reference Range Comments WHITE BLOOD CELL COUNT (BEAKER) (test icai=215) 6.4 K/ L 3.5-10.5 RED BLOOD CELL COUNT (BEAKER) (test yjkz=205) 4.47 M/ L 4.63-6.08 HEMOGLOBIN (BEAKER) (test eddx=678) 14.0 GM/DL 13.7-17.5 HEMATOCRIT (BEAKER) (test hjhg=432) 42.6 % 40.1-51.0 MEAN CORPUSCULAR VOLUME (BEAKER) (test jqgh=343) 95.3 fL 79.0-92.2 MEAN CORPUSCULAR HEMOGLOBIN (BEAKER) (test 31.3 pg 25.7-32.2 eziq=914) MEAN CORPUSCULAR HEMOGLOBIN CONC (BEAKER) (test 32.9 GM/DL 32.3-36.5 byez=242) RED CELL DISTRIBUTION WIDTH (BEAKER) (test 13.2 % 11.6-14.4 kqsz=747) PLATELET COUNT (BEAKER) (test ztsj=569) 268 K/CU MM 150-450 MEAN PLATELET VOLUME (BEAKER) (test gimr=260) 9.4 fL 9.4-12.4 NUCLEATED RED BLOOD CELLS (BEAKER) (test 0 /100 WBC 0-0 uzjw=183) NEUTROPHILS RELATIVE PERCENT (BEAKER) (test 65 % gnhq=646) LYMPHOCYTES RELATIVE PERCENT (BEAKER) (test 21 % ojxm=959) MONOCYTES RELATIVE PERCENT (BEAKER) (test 9 % yfpr=675) EOSINOPHILS RELATIVE PERCENT (BEAKER) (test 4 % euum=623) BASOPHILS RELATIVE PERCENT (BEAKER) (test 1 % rrqj=701) NEUTROPHILS ABSOLUTE COUNT (BEAKER) (test 4.11 K/ L 1.78-5.38 fbrr=832) LYMPHOCYTES ABSOLUTE COUNT (BEAKER) (test 1.30 K/ L 1.32-3.57 envm=355) MONOCYTES ABSOLUTE COUNT (BEAKER) (test 0.58 K/ L 0.30-0.82 bxfn=496) EOSINOPHILS ABSOLUTE COUNT (BEAKER) (test 0.25 K/ L 0.04-0.54 ront=542) BASOPHILS ABSOLUTE COUNT (BEAKER) (test 0.08 K/ L 0.01-0.08 gbog=375) IMMATURE GRANULOCYTES-RELATIVE PERCENT (BEAKER) 1 % 0-1 (test qsrg=6496)
[2019-05-26 21:45] LABS: Protime INR 1.03
[2019-05-26 21:52] LABS: Absolute Lymphocytes (CBC) 0.4 K/uL (0.7-4.9); Basophils % 0.3 % (0-1.3); Hematocrit 45.3 % (39.6-49.0); Lymphocytes % 6.3 % (15.3-44.8); MPV 7.5 fL (7.6-11.3); RBC Red Blood Cell Count 4.93 M/uL (4.33-5.43)
[2019-05-26 21:56] LABS: ALT/SGPT 53 U/L (12-78); AST/SGOT 29 U/L (15-37); Albumin 3.5 g/dL (3.4-5.0); Alkaline Phosphatase 65 U/L (45-117); BUN Blood Urea Nitrogen 28 mg/dL (7-18); Bicarbonate 23 mmol/L (21-32); Bilirubin Direct 0.1 mg/dL (0-0.2); Bilirubin Total 0.5 mg/dL (0.2-1.0); Glucose Level 194 mg/dL (74-106); NT PRO-BNP 73 pg/mL (<125); Potassium 4.2 mmol/L (3.5-5.1); Protein, Total 7.2 g/dL (6.4-8.2); Sodium Level 135 mmol/L (136-145); Troponin (Emerg Dept Use Only) < 0.02 ng/mL (0.0-0.045)
[2019-05-26 23:34] LABS: Blood Morphology Comment NOT SEEN (NOT SEEN); Platelet Estimate ADEQ
[2019-05-27] MEDS ORDERED: ALPRAZOLAM 0.25 MG TABLET PO PRN (01:05)
[2019-05-27] MEDS ORDERED: MORPHINE 4 MG/ML SYR IV PRN (01:05)
[2019-05-27] MEDS ORDERED: ACETAMINOPHEN 500 MG TAB PO PRN (01:05)
--- NOTE | 2019-05-27 01:16 | ER ---
Nurse's Notes [facility] Name: Ata Ramos Jr Age: 68 yrs Sex: Male : 1950 Arrival Date: 05/26/2019 Time: 21:04 Bed 28 Private MD: Diagnosis: Chest pain, unspecified;Shortness of breath Presentation: 05/26 21:04 Presenting complaint: Patient states: Shortness of breath since this morning. Patient aj1 also reports cough and congestion. Denies fever. Transition of care: patient was not received from another setting of care. Onset of symptoms was May 26, 2019. Risk Assessment: Do you want to hurt yourself or someone else? Patient reports no desire to harm self or others. Initial Sepsis Screen: Does the patient meet any 2 criteria? HR > 90 bpm. No. Patient's initial sepsis screen is negative. Does the patient have a suspected source of infection? Yes: Productive cough/pneumonia. Care prior to arrival: None. 21:04 Method Of Arrival: Ambulatory aj1 21:04 Acuity: TORRES 3 aj1 Triage Assessment: 21:06 General: Appears in no apparent distress. uncomfortable, Behavior is calm, cooperative, aj1 appropriate for age. Pain: Complains of pain in chest. Neuro: Level of Consciousness is awake, alert, obeys commands. Cardiovascular: Patient's skin is warm and dry. Respiratory: Reports shortness of breath Airway is patent Respiratory effort is even, unlabored, Respiratory pattern is regular, symmetrical, Onset: The symptoms/episode began/occurred today, the patient has mild shortness of breath. Historical: - Allergies: 21:06 Codeine; aj1 - Home Meds: 21:06 fenofibrate 160 mg Oral tab 1 tab once daily [Active]; gabapentin 100 mg Oral tab aj1 [Active]; hydrochlorothiazide 12.5 mg Oral tab 1 cap once daily [Active]; metformin 500 mg Oral tab 1 tab 2 times per day [Active]; metoprolol tartrate 25 mg Oral tab 1 tab 2 times per day [Active]; prednisone 5 mg Oral tab once daily [Active]; tamsulosin 0.4 mg Oral cp24 1 cap once daily [Active]; Zytiga 250 mg Oral tab 4 tabs once daily [Active]; - PMHx: 21:06 "fluid retention"; Cancer; Diabetes - NIDDM; Hypertension; neuropathy; Prostate cancer aj1 in remission; - Immunization history:: Flu vaccine is up to date. - Social history:: Smoking status: Patient/guardian denies using tobacco. - Ebola Screening: : Patient denies travel to an Ebola-affected area in the 21 days before illness onset. Screenin:23 Abuse screen: Denies threats or abuse. Denies injuries from another. Nutritional rv screening: No deficits noted. Tuberculosis screening: No symptoms or risk factors identified. Fall Risk None identified. Assessment: 21:21 General: Appears in no apparent distress. comfortable, Behavior is calm, cooperative. rv Pain: Complains of pain in chest Quality of pain is described as pressure. Neuro: Level of Consciousness is awake, alert, obeys commands, Oriented to person, place, time, situation. Cardiovascular: Rhythm is sinus tachycardia. Respiratory: Airway is patent Respiratory effort is even, Breath sounds are clear bilaterally. Derm: Skin is intact. 22:50 Reassessment: Patient appears in no apparent distress at this time. Patient and/or rv family updated on plan of care and expected duration. Pain level reassessed. Patient is alert, oriented x 3, equal unlabored respirations, skin warm/dry/pink. patient is asleep, comfortable and eupneic. 22:52 Reassessment: Pt to CT via stretcher. sr5 05/27 00:47 Reassessment: Patient and/or family updated on plan of care and expected duration. Pain sr5 level reassessed. Patient is alert, oriented x 3, equal unlabored respirations, skin warm/dry/pink. Patient states feeling better. Vital Signs: 05/26 21:06 BP 139 / 85; Pulse 107; Resp 24; Temp 97.0; Pulse Ox 97% on R/A; Weight 106.59 kg (R); aj1 Height 6 ft. 0 in. (182.88 cm) (R); 21:20 BP 153 / 87; Pulse 102; Resp 26; Pulse Ox 95% on R/A; rv 22:01 BP 110 / 57; Pulse 113; Resp 21; Pulse Ox 95% ; rv 22:50 BP 141 / 90; Pulse 95; Resp 18; Pulse Ox 95% on R/A; rv 23:23 BP 126 / 79; Pulse 97; Resp 18; Pulse Ox 95% on R/A; sr5 23:56 BP 122 / 94; Pulse 94; Resp 16; Pulse Ox 97% on R/A; sr5 05/27 00:47 BP 126 / 80; Pulse 95; Resp 18; Pulse Ox 96% on R/A; sr5 01:10 BP 136 / 89; Pulse 97; Resp 18; Temp 99.6(O); Pulse Ox 95% on R/A; Pain 0/10; sr5 05/26 21:06 Body Mass Index 31.87 (106.59 kg, 182.88 cm) aj1 05/26 23:23 reports feeling much better sr5 05/27 01:10 denies pain but reports interminent "can't get a good breath in" sr5 Vitals: 00:47 Cardiac Rhythm Assessment Sinus rhythm. sr5 01:12 Cardiac Rhythm Assessment Sinus rhythm. sr5 ED Course: 05/26 21:04 Patient arrived in ED. aj1 21:05 Triage completed. aj1 21:06 Arm band placed on Patient placed in an exam room. aj1 21:18 Miller Escalante MD is Attending Physician. kdr 21:20 Luiz Morrell RN is Primary Nurse. rv 21:23 Patient has correct armband on for positive identification. Bed in low position. Call rv light in reach. Side rails up X 1. night monitor on. Pulse ox on. NIBP on. 21:29 Inserted saline lock: 22 gauge in right forearm, using aseptic technique. Blood rv collected. 21:46 XRAY Chest (1 view) In Process Unspecified. EDMS 23:27 CT Chest For PE Angio In Process Unspecified. EDMS 05/27 00:47 No provider procedures requiring assistance completed. sr5 01:14 Bg Maier MD is Hospitalizing Provider. kdr Administered Medications: No medications were administered Output: 01:13 Urine: 200ml (Voided); Total: 200ml. sr5 Outcome: 01:15 Decision to Hospitalize by Provider. kdr 01:49 Patient left the ED. bb Signatures: Dispatcher [employer] EDMS India Falcon RN RN aj1 Miller Escalante MD MD kdr Zofia Mauro RN RN bb Marbin Bosch RN RN sr5 Luiz Morrell RN RN rv
--- NOTE | 2019-05-27 01:17 | EDPHYS ---
Physician Documentation [facility] Name: Ata Ramos Jr Age: 68 yrs Sex: Male : 1950 Arrival Date: 05/26/2019 Time: 21:04 Bed 28 Private MD: ED Physician Miller Escalante HPI: 05/26 22:04 This 68 yrs old Male presents to ER via Ambulatory with complaints of kdr Shortness Of Breath. 22:04 The patient has shortness of breath at rest, with light activity. Onset: The kdr symptoms/episode began/occurred gradually, this morning. Duration: The symptoms are continuous, and are steadily getting worse. The patient's shortness of breath is aggravated by exertion, light activity. Associated signs and symptoms: Pertinent positives: chest pain, diaphoresis, nausea. Severity of symptoms: At their worst the symptoms were mild moderate just prior to arrival, in the emergency department the symptoms are unchanged. The patient has not experienced similar symptoms in the past. The patient has not recently seen a physician. Historical: - Allergies: 21:06 Codeine; aj1 - Home Meds: 21:06 fenofibrate 160 mg Oral tab 1 tab once daily [Active]; gabapentin 100 mg Oral tab aj1 [Active]; hydrochlorothiazide 12.5 mg Oral tab 1 cap once daily [Active]; metformin 500 mg Oral tab 1 tab 2 times per day [Active]; metoprolol tartrate 25 mg Oral tab 1 tab 2 times per day [Active]; prednisone 5 mg Oral tab once daily [Active]; tamsulosin 0.4 mg Oral cp24 1 cap once daily [Active]; Zytiga 250 mg Oral tab 4 tabs once daily [Active]; - PMHx: 21:06 "fluid retention"; Cancer; Diabetes - NIDDM; Hypertension; neuropathy; Prostate cancer aj1 in remission; - Immunization history:: Flu vaccine is up to date. - Social history:: Smoking status: Patient/guardian denies using tobacco. - Ebola Screening: : Patient denies travel to an Ebola-affected area in the 21 days before illness onset. ROS: 22:04 Constitutional: Negative for objective fever, chills, and weight loss- he flet feverish kdr earlier Eyes: Negative for injury, pain, redness, and discharge, Neck: Negative for injury, pain, and swelling, Abdomen/GI: Negative for abdominal pain, nausea, vomiting, diarrhea, and constipation, Back: Negative for injury and pain, : Negative for injury, bleeding, discharge, and swelling, MS/Extremity: Negative for injury and deformity, Skin: Negative for injury, rash, and discoloration, Neuro: Negative for headache, weakness, numbness, tingling, and seizure activity. Psych: Negative for depression, anxiety, suicide ideation, homicidal ideation, and hallucinations, Allergy/Immunology: Negative for hives, rash, and allergies, Endocrine: Negative for neck swelling, polydipsia, polyuria, polyphagia, and marked weight changes, Hematologic/Lymphatic: Negative for swollen nodes, abnormal bleeding, and unusual bruising. 22:04 Cardiovascular: Positive for chest pain, Negative for edema, orthopnea, palpitations, paroxysmal nocturnal dyspnea. 22:04 Respiratory: Positive for dyspnea on exertion, shortness of breath, at rest. Negative for hemoptysis, orthopnea, pleurisy, sputum production. Exam: 22:04 Constitutional: This is a well developed, well nourished patient who is awake, alert, kdr and in mild distress. Head/Face: Normocephalic, atraumatic. Eyes: Pupils equal round and reactive to light, extra-ocular motions intact. Lids and lashes normal. Conjunctiva and sclera are non-icteric and not injected. Cornea within normal limits. Periorbital areas with no swelling, redness, or edema. Neck: Trachea midline, no thyromegaly or masses palpated, and no cervical lymphadenopathy. Supple, full range of motion without nuchal rigidity, or vertebral point tenderness. No Meningismus. Chest/axilla: Normal chest wall appearance and motion. Nontender with no deformity. No lesions are appreciated. Cardiovascular: Regular rate and rhythm with a normal S1 and S2. No gallops, murmurs, or rubs. Normal PMI, no JVD. No pulse deficits. Respiratory: Lungs have equal breath sounds bilaterally, clear to auscultation and percussion. No rales, rhonchi or wheezes noted. No increased work of breathing, no retractions or nasal flaring. Abdomen/GI: Soft, non-tender, with normal bowel sounds. No distension or tympany. No guarding or rebound. No evidence of tenderness throughout. Back: No spinal tenderness. No costovertebral tenderness. Full range of motion. Skin: Warm, dry with normal turgor. Normal color with no rashes, no lesions, and no evidence of cellulitis. MS/ Extremity: Pulses equal, no cyanosis. Neurovascular intact. Full, normal range of motion. Neuro: Awake and alert, GCS 15, oriented to person, place, time, and situation. Cranial nerves II-XII grossly intact. Motor strength 5/5 in all extremities. Sensory grossly intact. Cerebellar exam normal. Normal gait. Psych: Awake, alert, with orientation to person, place and time. Behavior, mood, and affect are within normal limits. Vital Signs: 21:06 BP 139 / 85; Pulse 107; Resp 24; Temp 97.0; Pulse Ox 97% on R/A; Weight 106.59 kg (R); aj1 Height 6 ft. 0 in. (182.88 cm) (R); 21:20 BP 153 / 87; Pulse 102; Resp 26; Pulse Ox 95% on R/A; rv 22:01 BP 110 / 57; Pulse 113; Resp 21; Pulse Ox 95% ; rv 22:50 BP 141 / 90; Pulse 95; Resp 18; Pulse Ox 95% on R/A; rv 23:23 BP 126 / 79; Pulse 97; Resp 18; Pulse Ox 95% on R/A; sr5 23:56 BP 122 / 94; Pulse 94; Resp 16; Pulse Ox 97% on R/A; sr5 05/27 00:47 BP 126 / 80; Pulse 95; Resp 18; Pulse Ox 96% on R/A; sr5 01:10 BP 136 / 89; Pulse 97; Resp 18; Temp 99.6(O); Pulse Ox 95% on R/A; Pain 0/10; sr5 05/26 21:06 Body Mass Index 31.87 (106.59 kg, 182.88 cm) [facility] 05/26 23:23 reports feeling much better sr5 05/27 01:10 denies pain but reports interminent "can't get a good breath in" sr5 MDM: 01:15 Patient medically screened. kdr 01:25 Data reviewed: vital signs, nurses notes, lab test result(s), EKG, radiologic studies. kdr Counseling: I had a detailed discussion with the patient and/or guardian regarding: the historical points, exam findings, and any diagnostic results supporting the discharge/admit diagnosis, lab results, radiology results, the need for further work-up and treatment in the hospital. 05/26 21:21 Order name: Basic Metabolic Panel; Complete Time: 21:58 kdr 05/26 21:21 Order name: CBC with Diff; Complete Time: 00:11 kdr 05/26 21:21 Order name: LFT's; Complete Time: 21:58 kdr 05/26 21:21 Order name: Magnesium; Complete Time: 21:58 kdr 05/26 21:21 Order name: NT PRO-BNP; Complete Time: 21:58 kdr 05/26 21:21 Order name: PT-INR; Complete Time: 22:44 kdr 05/26 21:21 Order name: Troponin (emerg Dept Use Only); Complete Time: 21:58 kdr 05/26 22:27 Order name: Flu; Complete Time: 00:11 kdr 05/26 22:36 Order name: D-Dimer; Complete Time: 22:44 EDNE 05/26 22:57 Order name: Manual Differential; Complete Time: 00:11 EDMS 05/27 01:09 Order name: Basic Metabolic Panel EDMS 05/27 01:09 Order name: Basic Metabolic Panel EDMS 05/27 01:09 Order name: CBC with Automated Diff EDNE 05/26 21:21 Order name: XRAY Chest (1 view) [facility] 05/26 21:21 Order name: EKG; Complete Time: 21:21 [facility] 05/26 21:21 Order name: Cardiac monitoring; Complete Time: 21:29 [facility] 05/26 21:21 Order name: EKG - Nurse/Tech; Complete Time: 21:29 [facility] 05/26 22:45 Order name: CT Chest For PE Angio kdr 05/27 01:09 Order name: Heart Healthy EDMS 05/27 01:09 Order name: EKG Electrocardiogram EDMS 05/27 01:09 Order name: EKG Electrocardiogram EDMS 05/27 01:09 Order name: CBC with Automated Diff EDMS 05/27 01:09 Order name: Lipid Profile EDMS 05/27 01:09 Order name: Lipid Profile EDMS 05/27 01:09 Order name: Troponin I EDMS 05/27 01:09 Order name: Troponin I EDMS 05/27 01:09 Order name: Troponin I EDMS 05/27 01:18 Order name: Urine Microscopic Only sr5 05/27 01:19 Order name: Urine Dipstick--Ancillary (enter results) sr5 05/26 21:21 Order name: IV Saline Lock; Complete Time: :30 kdr 05/26 21:21 Order name: Labs collected and sent; Complete Time: :30 kdr 05/26 21:21 Order name: O2 Per Protocol; Complete Time: :30 kdr 05/26 21:21 Order name: O2 Sat Monitoring; Complete Time: :30 kdr Administered Medications: No medications were administered Disposition: 05/27/19 01:15 Hospitalization ordered by Bg Maier for Observation. Preliminary diagnosis are Chest pain, unspecified, Shortness of breath. - Bed requested for Intensive Care Unit. - Status is Observation. bb - Condition is Fair. - Problem is new. - Symptoms have improved. UTI on Admission? No Signatures: Dispatcher [employer] [facility] [place] Falcon RN RN aj1 Miller Escalante MD MD kdr Zofia Mauro RN RN bb Ines Marcelo ar5 Corrections: (The following items were deleted from the chart) 05/26 22:36 22:27 D-DIMER+COAG.LAB.BRZ ordered. [facility] 05/27 01:18 01:15 Hospitalization Ordered by Bg Maier MD for Observation. Preliminary ar5 diagnosis is Chest pain, unspecified; Shortness of breath. Bed requested for Telemetry/MedSurg (observation). Status is Observation. Condition is Fair. Problem is new. Symptoms have improved. UTI on Admission? No. kdr 01:49 01:18 05/27/2019 01:15 Hospitalization Ordered by Bg Maier MD for Observation. bb Preliminary diagnosis is Chest pain, unspecified; Shortness of breath. Bed requested for Intensive Care Unit. Status is Observation. Condition is Fair. Problem is new. Symptoms have improved. UTI on Admission? No. ar5
[2019-05-27 01:56] LABS: Urine Bacteria <20 /HPF (NONE SEEN); Urine Culture Reflex Order NOT NEEDED; Urine RBC <5 /HPF (NONE SEEN)
[2019-05-27 01:57] LABS: Urine Blood NEGATIVE (NEG); Urine Glucose 3+ (NEG); Urine Protein NEGATIVE (NEG); Urine Specific Gravity 1.015 (1.005-1.030)
[2019-05-27 02:19] VITALS: O2SAT 94; BMI 31.7
[2019-05-27 06:58] LABS: HDL Cholesterol 37 mg/dL (40-60); LDL Cholesterol, Calculated 27 (<130); Troponin I < 0.02 ng/mL (0.0-0.045)
[2019-05-27] MEDS ORDERED: HYDROCORTISONE SUC 100 MG INJ IV ONE (07:20)
[2019-05-27] MEDS ORDERED: WATER FOR INJ,STERILE 10 ML IV SCH (08:00)
--- NOTE | 2019-05-27 08:05 | EKG ---
Test Date: 2019-05-26 Test Time: 21:17:55 Inspector Type: RV MEASUREMENT RESULTS: Intervals: Rate: 102 [place]: 148 QRSD: 84 QT: 344 QTc: 448 [place]: P: 30 [place]: 148 QRS: -31 T: 47 INTERPRETIVE STATEMENTS: Sinus tachycardia Left axis deviation Voltage criteria for left ventricular hypertrophy Abnormal ECG Compared to ECG 09/20/2018 10:17:32 Left-axis deviation now present Sinus rhythm no longer present ST (T wave) deviation no longer present Electronically Signed On 05-27-19 08:05:18 HEAD RESIDENT by Wyatt Morris
--- NOTE | 2019-05-27 08:21 | RAD REPORT ---
EXAM DESCRIPTION: RAD - Chest Single View - 05/26/2019 9:46 pm CLINICAL HISTORY: Shortness of breath COMPARISON: August 2017 TECHNIQUE: AP portable chest image was obtained 2138 hours . FINDINGS: Lung volumes are low. No peripheral mass or consolidation. No failure or volume overload. Heart and vasculature are normal. No measurable pleural effusion and no pneumothorax. No acute bony a bnormality seen. No acute aortic findings suspected. IMPRESSION: No acute cardiopulmonary process. No significant interval change.
[2019-05-27 08:37] VITALS: BP 150/85; TEMP 98
[2019-05-27] MEDS ORDERED: METOPROLOL TAR 50 MG TAB PO SCH (09:00)
[2019-05-27] MEDS ORDERED: ASPIRIN EC 81 MG TAB PO SCH (09:00)
[2019-05-27] MEDS ORDERED: INFLUENZA VACCINE (for 3y+) 0.5 ML DOSE IMVAC ONE (09:00)
[2019-05-27] MEDS ORDERED: ENOXAPARIN 40 MG/0.4 ML SQ SCH (09:00)
[2019-05-27] MEDS ORDERED: LOPERAMIDE HCL 2 MG CAPSULE PO STA (10:36)
--- NOTE | 2019-05-28 10:50 | RAD REPORT ---
EXAM DESCRIPTION: CT - Chest For Pe Angio - 05/27/2019 6:41 am CLINICAL HISTORY: 68 years Male SOB COMPARISON: None TECHNIQUE: Images were obtained in axial, sagittal, and coronal planes. Intravenous contrast was adm inistered. This exam was performed according to our departmental dose-optimization program which includes use of Automated Exposure Control, adjustment of the mA and/or kV according to patient size and/or use of i terative reconstruction technique. FINDINGS: No filling defects pulmonary arteries bilaterally. No aortic dissection. Aortic root is pr ominent in size measuring 3.9 cm in greatest transverse dimension. No pericardial or pleural effusions bilaterally. No adenopathy. Enlarged heart. Increased pulmonary vascularity. No lung parenchymal infiltrates or nodules seen. No acute osseous abnormality. Decreased attenuation involving liver with fatty change. IMPRESSION: No evidence for pulmonary embolus. No aortic dissection. Prominent aortic root. Increased pulmonary vascularity. No infiltrates noted. Electronically signed by: Ana Parekh MD 05/26/2019 11:33 PM WINDOW DRAPER Due to temporary technical issues with the PACS/Fluency reporting system, reports are being signed by the in house radiologist as a courtesy to ensure prompt reporting. The interpreting radiologist is f ully responsible for the content of the report.
== END 2019-05-27 13:10 | disposition home or self-care (01) ==
LOC: ER 21:02 → 3RD-ICU 05-27 01:26
PROVIDERS: ADMIT Hospitalist; ATTEND Hospitalist
DX: R07.9 Chest pain, unspecified (principal); I10 Essential (primary) hypertension; E11.9 Type 2 diabetes mellitus without complications; Z85.46 Personal history of malignant neoplasm of prostate
CPT/HCPCS: 93005; 85025; 80048; 36415; 83735; 85610; 80061; 85379; 80076; 84484 ×3; 83880; 87804 ×2; 71275; 71045; 99284; Q9967; J1650; J1720; G0378 ×2; 81003; 81015

== ENCOUNTER 2020-03-11 18:46 | Emergency (ER) | payer BC ==
--- OUTSIDE RECORDS SUMMARY | 2020-03-11 18:49 | XMS REPORT | Clinical Summary ---
:1950 Author Organization [facility] Address [address] [place] [address] Care Team Providers Name Role Phone Pcp Primary Care Provider Unavailable Allergies Active Allergy Reactions Severity Noted Date Comments Codeine Itching Low 09/20/2018 Medications Medication Sig Dispensed Refills Start Date End Date Status gabapentin (NEURONTIN) Take 300 mg by 0 Active 300 MG mouth nightly. capsuleIndications: neuropathic pain metoprolol (LOPRESSOR) 25 Take 25 mg by 0 Active MG tablet mouth 2 (two) times daily. metFORMIN (GLUCOPHAGE) Take 500 mg by 0 Active 500 MG tabletIndications: mouth 2 (two) prevention of type 2 times daily diabetes mellitus with breakfast and dinner. aspirin 81 MG chewable Take 81 mg by 0 Active tablet mouth daily. Missing or Non-Formulary Take 1,000 mg 0 Active MedicationIndications: by mouth daily. high-grade prostate cancer, ZYTIGA-Patient has home med at bedside hydroCHLOROthiazide Take 12.5 mg by 0 Active (HYDRODIURIL) 12.5 MG mouth 2 (two) tablet times daily. tamsulosin (FLOMAX) 0.4 Take 0.4 mg by 0 Active mg Cap 24 hr capsule mouth nightly. atorvastatin (LIPITOR) 20 Take 20 mg by 0 Active MG tablet mouth 2 (two) times daily. fenofibrate Take 160 mg by 0 Act maryellen (TRIGLIDE,LOFIBRA) 160 MG mouth daily. tablet Active Problems Problem Noted Date Facial paresthesia 09/20/2018 Encounters Date Type Specialty Care Team Description 04/10/2019 Hospital Encounter Computed Tomography [place] Adnres ostate cancer MD Ramos ([facility]) 1, [facility] Room 04/10/2019 Hospital Encounter Computed Tomography [place] Andres cancer MD Ramos ([facility]) 1, [facility] Room 04/09/2019 Outside Orders Central Scheduling [place] Andres Prostat e lela Beasley MD ([facility]) (Primary Dx) 03/24/2019 Outside Orders Central Scheduling [place] Andres e lela Beasley MD ([facility]) (Primary Dx) after 03/11/2019 Social History Tobacco Use Types Packs/Day Years Used Date Never Smoker Smokeless Tobacco: Never Used Sex Assigned at Date Recorded Not on file Last Filed Vital Signs Not on file Plan of Treatment Not on file Procedures Procedure Name Priority Date/Time Associated Diagnosis Comme nts CT CHEST WITH IV Routine 04/10/2019 2:54 PM Prostate cancer R esults for this CONTRAST WOUND CARE NURSE (HCC) procedure are i n the results section. CT ABDOMEN/PELVIS Routine 04/10/2019 2:54 PM Prostate cancer Results for this WITH IV CONTRAST WOUND CARE NURSE (HCC) procedure a re in the results section. POCT-CREATININE Routine 04/10/2019 2:24 PM Resul ts for this WOUND CARE NURSE procedure are i n the results section. after 03/11/[address] Abdomen/Pelvis with IV Contrast (04/10/2019 2:54 PM WOUND CARE NURSE) Specimen Narrative Performed At FINAL REPORT Code [facility] CT of the chest, abdomen and pelvis, wit h contrast Clinical History: C61 Technique: CT of the chest, abdomen and pelvis is performed with intravenous contrast administration. T his exam was performed according to our departmental dose optim ization program which includes automated exposure control, adj ustment of the mA and/or kV according to patient's size and/or use o f iterative reconstructive technique. Comparison Film: None Discussion: Visualized thyroid gland is normal. Ther e is no supraclavicular, axillary, mediastinal or hilar lymphaden opathy. Heart and pericardium is unremarkable. There are a few calcified granulomas in both lungs. No mass or consolidation, no pleural effusion. The central airways are patent, no bronchiectasis, or bronchial wall thi ckening. Liver is fatty. No biliary ductal dilata tion, gallbladder has been removed. The spleen, pancreas, adrenal glands are unremarkable. Kidneys demonstrate no mass, or hydronep hrosis. There is a 2 mm nonobstructive stone in the left kidney. A small cortical defect is also seen on the left. No evidence of bowel obstruction, or abn ormal bowel wall thickening. There is mild colonic diverticulosis, no evidence of acute diverticulitis. Normal appendix. In the pelvis, bladder is decompressed a nd unremarkable. Prostate gland contains three small metallic dens ities likely reflecting fiducial markers. There is [id number] vascular calci fication. No lymphadenopathy, or ascites. Osseous structures demonstra te degenerative changes. Impression: No evidence of lymphadenopathy or distan t metastasis in the chest abdomen or pelvis. Hepatic steatosis. Status post cholecyst ectomy. 2 mm nonobstructive stone in the left ki dney. Mild colonic diverticulosis. Signed: Ranjit Early MD Report Verified Date/Time: 04/13/2019 10:33:48 Reading Location: [facility] [id number] [facility] Reading Room Procedure Note Interface, External Ris In - 04/13/2019 10:35 AM WOUND CARE NURSE FINAL REPORT CT of the chest, abdomen and pelvis, wit h contrast Clinical History: C61 Technique: CT of the chest, abdomen and pelvis is performed with intravenous contrast administration. Th is exam was performed according to our departmental dose optim ization program which includes automated exposure control, adj ustment of the mA and/or kV according to patient's size and/or use o f iterative reconstructive technique. Comparison Film: None Discussion: Visualized thyroid gland is normal. Ther e is no supraclavicular, axillary, mediastinal or hilar lymphaden opathy. Heart and pericardium is unremarkable. There are a few calcified granulomas in both lungs. No mass or consolidation, no pleural effusion. The central airways are patent, no bronchiectasis, or bronchial wall thi ckening. Liver is fatty. No biliary ductal dilata tion, gallbladder has been removed. The spleen, pancreas, adrenal glands are unremarkable. Kidneys demonstrate no mass, or hydronep hrosis. There is a 2 mm nonobstructive stone in the left kidney. A small cortical defect is also seen on the left. No evidence of bowel obstruction, or abn ormal bowel wall thickening. There is mild colonic diverticulosis, no evidence of acute diverticulitis. Normal appendix. In the pelvis, bladder is decompressed a nd unremarkable. Prostate gland contains three small metallic dens ities likely reflecting fiducial markers. There is [id number] vascular calci fication. No lymphadenopathy, or ascites. Osseous structures demonstra te degenerative changes. Impression: No evidence of lymphadenopathy or distan t metastasis in the chest abdomen or pelvis. Hepatic steatosis. Status post cholecyst ectomy. 2 mm nonobstructive stone in the left ki dney. Mild colonic diverticulosis. Signed: Ranjit Early MD Report Verified Date/Time: 04/13/2019 1 0:33:48 Reading Location: [facility] [id number] [facility] Reading Room Performing Organization Address City/State/Zipcode Phone Number TRA CT Chest with IV Contrast (04/10/2019 2:54 PM WOUND CARE NURSE) Specimen Narrative Performed At FINAL REPORT TRA CT of the chest, abdomen and pelvis, wit h contrast Clinical History: C61 Technique: CT of the chest, abdomen and pelvis is performed with intravenous contrast administration. T his exam was performed according to our departmental dose optim ization program which includes automated exposure control, adj ustment of the mA and/or kV according to patient's size and/or use o f iterative reconstructive technique. Comparison Film: None Discussion: Visualized thyroid gland is normal. Ther e is no supraclavicular, axillary, mediastinal or hilar lymphaden opathy. Heart and pericardium is unremarkable. There are a few calcified granulomas in both lungs. No mass or consolidation, no pleural effusion. The central airways are patent, no bronchiectasis, or bronchial wall thi ckening. Liver is fatty. No biliary ductal dilata tion, gallbladder has been removed. The spleen, pancreas, adrenal glands are unremarkable. Kidneys demonstrate no mass, or hydronep hrosis. There is a 2 mm nonobstructive stone in the left kidney. A small cortical defect is also seen on the left. No evidence of bowel obstruction, or abn ormal bowel wall thickening. There is mild colonic diverticulosis, no evidence of acute diverticulitis. Normal appendix. In the pelvis, bladder is decompressed a nd unremarkable. Prostate gland contains three small metallic dens ities likely reflecting fiducial markers. There is [id number] vascular calci fication. No lymphadenopathy, or ascites. Osseous structures demonstra te degenerative changes. Impression: No evidence of lymphadenopathy or distan t metastasis in the chest abdomen or pelvis. Hepatic steatosis. Status post cholecyst ectomy. 2 mm nonobstructive stone in the left ki dney. Mild colonic diverticulosis. Signed: Ranjit Early MD Report Verified Date/Time: 04/13/2019 10:33:48 Reading Location: [facility] [id number] [facility] Reading Room Procedure Note Interface, External Ris In - 04/13/2019 10:35 AM WOUND CARE NURSE FINAL REPORT CT of the chest, abdomen and pelvis, wit h contrast Clinical History: C61 Technique: CT of the chest, abdomen and pelvis is performed with intravenous contrast administration. Th is exam was performed according to our departmental dose optim ization program which includes automated exposure control, adj ustment of the mA and/or kV according to patient's size and/or use o f iterative reconstructive technique. Comparison Film: None Discussion: Visualized thyroid gland is normal. Ther e is no supraclavicular, axillary, mediastinal or hilar lymphaden opathy. Heart and pericardium is unremarkable. There are a few calcified granulomas in both lungs. No mass or consolidation, no pleural effusion. The central airways are patent, no bronchiectasis, or bronchial wall thi ckening. Liver is fatty. No biliary ductal dilata tion, gallbladder has been removed. The spleen, pancreas, adrenal glands are unremarkable. Kidneys demonstrate no mass, or hydronep hrosis. There is a 2 mm nonobstructive stone in the left kidney. A small cortical defect is also seen on the left. No evidence of bowel obstruction, or abn ormal bowel wall thickening. There is mild colonic diverticulosis, no evidence of acute diverticulitis. Normal appendix. In the pelvis, bladder is decompressed a nd unremarkable. Prostate gland contains three small metallic dens ities likely reflecting fiducial markers. There is pghe-tg-[id number] vascular calci fication. No lymphadenopathy, or ascites. Osseous structures demonstra te degenerative changes. Impression: No evidence of lymphadenopathy or distan t metastasis in the chest abdomen or pelvis. Hepatic steatosis. Status post cholecyst ectomy. 2 mm nonobstructive stone in the left ki dney. Mild colonic diverticulosis. Signed: Ranjit Early MD Report Verified Date/Time: 04/13/2019 1 0:33:48 Reading Location: [facility] [id number] Ortho Con sult Reading Room Performing Organization Address City/State/Zipcode Phone Number GE RIS POC-Creatinine (04/10/2019 2:24 PM WOUND CARE NURSE) POC-Creatinine 1.0Comment: TESTED 0.6 - 1.3 [facility] 7200 mg/dL [facility] [id number] POC-EGFR 75 mL/min/1.73M2 [facility] Specimen Blood Performing Organization Address City/State/Zipcode Phone Number [facility] [address] [place] [address] CENTER after 03/11/2019 Insurance Payer Benefit Plan / Subscriber ID Effective Dates Phone Addre ss Type Group BLUE BCBS PPO POS [id number] 2016-Yamilet [phone] [id number] PPO CROSS/BLUE EPO CHOICE t 2 [facility] [id number] Advance Directives For more information, please contact: [phone] Code Status Date Activated Date Inactivated Comments Full Code 09/20/2018 4:46 PM 09/22/2018 12:55 PM This code status was determined by: Patient
--- OUTSIDE RECORDS SUMMARY | 2020-03-11 18:50 | XMS REPORT | Continuity of Care Document ---
:1950 Author Organization [facility] t Address [address] [place] [address] Care Team Providers Name Role Phone Pcp Primary Care Physician Unavailable Юлия Emmanuel MD Attending Clinician [address], [address] Room Attending Clinician Unavailable ЮЛИЯ EMMANUEL Attending Clinician Unavailable Mckenna GARY, E Attending Clinician Yessenia MARINO Attending Clinician Unavailable Yessenia MARINO Admitting Clinician Unavailable Payers Payer Name Policy Type Policy Effective Date Expiration Date Sour ce Number [employer] CROSS/BLUE [id number] 2016 ZAHIRA Perdue [employer] PPO 00:00:00 - Medical POS EPO Center [id number] [id number], [place] [id number] Problems Condition Condition Condition Status Onset Resolution Last Treating Co mments Source Name Details Category Date Date Treatment Clinician Date Facial Facial Disease Active ZAHIRA St paresthesi paresthesi 09-20 Malinda kes - a a 00:00: Medical 00 Center Personal Personal Disease Active Overview: history of history of 12-19 Added An derso malignant malignant 00:00: automatic n neoplasm neoplasm 00 ally from of of request prostate prostate for surgery [id number] 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 Active M D noma of noma of 4-05 Anderso prostate prostate 00:00: n 00 Allergies, Adverse Reactions, Alerts Allergy Allergy Status Severity Reaction(s) Onset Inactive Treating Comm ents Source Name Type Date Date Clinician Codeine Drug Active Itching [facility] Family History Family Member Diagnosis Comments Start Date Stop Date Source Paternal grandfather Prostate cancer MD Penaloza Social History Social Habit Start Date Stop Date Quantity Comments Source Sex Assigned At MD Santos on Tobacco use and 2016-09-27 2016-09-27 Never used MD Santos on exposure 00:00:00 00:00:00 Alcohol intake 2016-09-27 2016-09-27 Current drinker MD Cristina bailey 00:00:00 00:00:00 of alcohol (finding) Alcohol Comment 2016-08-24 2016-08-24 Drinks one vodka MD Penaloza 00:00:00 00:00:00 or liquor every 3-4 months socially Smoking Status Start Date Stop Date Source Never smoker MD Penaloza Medications Ordered Filled Start Stop Current Ordering Indication Dosage Frequency Signature Comments Components Source Medication Medication Date Date Medication? Clinician (SIG) Name Name gabapentin Yes neuropathic 300mg QD Take [address] [facility] [address] (NEURONTIN) 4-29 pain mg by [facility] - 300 MG 10:55: mouth Medical capsule 47 nightly. [place] metoprolol Yes 25mg Q.5D Take [address] (LOPRESSOR) 4-29 by mouth 2 Malinda kes - 25 MG 10:55: (two) Medical tablet 47 times Center daily. metFORMIN Yes prevention 500mg Take [address] [facility] (GLUCOPHAGE 4-29 of type 2 mg by Malinda kes - ) 500 MG 10:55: diabetes mouth 2 Me dical tablet 47 mellitus (two) Center times daily with breakfast and dinner. aspirin 81 Yes 81mg QD Take [address] MG chewable 4-29 by mouth Luke s - tablet 10:55: daily. Medical 47 Center Missing or Yes high-grade 1000mg QD Take 1,[address] [facility] Non-Formula 4-29 prostate mg by Kelvin es - ry 10:55: cancer mouth Medical Medication 47 daily. Center hydroCHLORO Yes 12.5mg Q.5D Take 12.[address] [facility] [address] thiazide 4-29 mg by [facility] - (HYDRODIURI 10:55: mouth 2 Med ical L) 12.5 MG 47 (two) Center tablet times daily. tamsulosin Yes .4mg QD Take 0.[address] [facility] [address] (FLOMAX) 4-29 mg by [facility] - 0.4 mg Cap 10:55: mouth Medica l 24 hr 47 nightly. Center capsule atorvastati Yes 20mg Q.5D Take [address] n (LIPITOR) 4-29 by mouth 2 Malinda kes - 20 MG 10:55: (two) Medical tablet 47 times Center daily. fenofibrate Yes 160mg QD Take [address] (TRIGLIDE,L 4-29 mg by [facility] - OFIBRA) 160 10:55: mouth Medic al MG tablet 47 daily. Center ERGOCALCIFE Yes Take by MD DAVIS, 6-07 mouth Anderso VITAMIN D2, 19:22: daily. n (VITAMIN D2 14 ORAL) hydroCHLORO Yes 12.5mg Take 12.5 MD thiazide 3-23 mg by Anderso (HYDRODIURI 00:00: mouth n L) 12.5 mg 00 daily. tablet BYSTOLIC 10 Yes 10mg Take 10 mg MD mg tablet 2-19 by mouth Tom o 00:00: daily. n 00 fenofibrate Yes 160mg Take 160 M D (TRIGLIDE) 1-13 mg by Anderso 160 mg 00:00: mouth n tablet 00 daily. Procedures Procedure Date / Time Performed Performing Clinician [facility] e CT ABDOMEN/PELVIS WITH 2019-04-10 14:54:[address] [facility] CHEST WITH IV 2019-04-10 14:54:00 Virginia Emmanuel [facility] - [facility]AST Medical Center POCT-CREATININE 2019-04-10 14:24:00 Virginia Emmanuel [facility] St Malinda kes - Medical Center Encounters Start End Encounter Admission Attending Care Care Encounter Source Date/Time Date/Time Type Type Clinicians Facility Department ID 2019-03-24 2019-03-[address] [facility] [id number] 09:52:37 10:16:53 Visit E [place] [id number] Results Test Description Test Time Test Comments Results Result Sourc e Comments CT, ABDOMEN 2019-04-13 FINAL REPORT PATIENT 10:33:00 ID: [id number] CT of the chest, abdomen and pelvis, [...] densities likely reflecting fiducial markers. There is tchk-tz-boixamta vascular calcification. No lymphadenopathy, or ascites. Osseous structures demonstrate degenerative changes. Impression: No evidence of lymphadenopathy or distant metastasis in the chest abdomen or pelvis. Hepatic steatosis. Status post cholecystectomy. 2 mm nonobstructive stone in the left kidney. Mild colonic diverticulosis. Signed: Ranjit Early Verified Date/Time: 04/13/2019 10:33:48 Reading Location: [facility] [id number] [facility] Consult Reading Room , CHEST, WITH 2019-04-13 FINAL REPORT PATIENT IV CONTRAST 10:33:00 ID: [id number] CT of the chest, abdomen and pelvis, [...] densities likely reflecting fiducial markers. There is tede-qk-pubmdzxi vascular calcification. No lymphadenopathy, or ascites. Osseous structures demonstrate degenerative changes. Impression: No evidence of lymphadenopathy or distant metastasis in the chest abdomen or pelvis. Hepatic steatosis. Status post cholecystectomy. 2 mm nonobstructive stone in the left kidney. Mild colonic diverticulosis. Signed: Ranjit Earlyort Verified Date/Time: 04/13/2019 10:33:48 Reading Location: [address] Ortho Consult Reading Room Chest with IV 2019-04-13 Interface, External [facility] Contrast 10:33:00 Ris In - 04/13/2019 - Med ical 10:35 AM [facility] Center REPORT CT of the chest, abdomen and [...] densities likely reflecting fiducial markers. There is owke-ik-iubqzfnn vascular calcification. No lymphadenopathy, or ascites. Osseous structures demonstrate degenerative changes. Impression: No evidence of lymphadenopathy or distant metastasis in the chest abdomen or pelvis. Hepatic steatosis. Status post cholecystectomy. 2 mm nonobstructive stone in the left kidney. Mild colonic diverticulosis. Signed: Ranjit Earlyeport Verified Date/Time: 04/13/2019 10:33:48 Reading Location: [address] Ortho Consult Reading Room Abdomen/Pelvis 2019-04-13 Interface, External [facility] with IV Contrast 10:33:00 Ris In - 04/13/2019 - Medical 10:35 AM [facility] Center REPORT CT of the chest, abdomen and [...] densities likely reflecting fiducial markers. There is lqbw-um-lettsozu vascular calcification. No lymphadenopathy, or ascites. Osseous structures demonstrate degenerative changes. Impression: No evidence of lymphadenopathy or distant metastasis in the chest abdomen or pelvis. Hepatic steatosis. Status post cholecystectomy. 2 mm nonobstructive stone in the left kidney. Mild colonic diverticulosis. Signed: Ranjit Early MDReport Verified Date/Time: 04/13/2019 10:33:48 Reading Location: [address] Ortho Consult Reading Room -Creatinine 2019-04-10 14:34:00 Test Item Value Reference Range Interpretation Comme [facility] POC-Creatinine (test code = 1.0 mg/dL 0.6-1.3 TESTED AT [place] [id number]) [facility] [id number] POC-EGFR (test code = 1860) 75 mL/min/1.73M2 [id number] 14:34:00 Test Item Value Reference Range Interpretation Comments POC-CREATININE 1.0 mg/dL 0.6-1.3 TESTED AT [facility] 7200 (BEAKER) (test [facility] G A code = 1859) [facility] 7703 0 POC-EGFR 75 mL/min/1.73M2 (BEAKER) (test code = 1860) [id number] 07:33:00 Test Item Value Reference Range Interpretation Comments MAGNESIUM (BEAKER) 1.9 mg/dL 1.6-2.6 Specimen slightly (test code = 627) hemolyzed BASIC METABOLIC [id number] 06:04:00 Test Item Value Reference Range Interpretation Comments SODIUM (BEAKER) 139 meq/L 136-145 (test code = 381) POTASSIUM (BEAKER) 3.9 meq/L 3.5-5.1 Specimen slightly (test code = 379) hemolyzed CHLORIDE (BEAKER) 104 meq/L 98-107 (test code = 382) CO2 (BEAKER) (test 25 meq/L 22-29 code = 355) BLOOD UREA NITROGEN 19 mg/dL 7-21 (BEAKER) (test code = 354) CREATININE (BEAKER) 0.94 mg/dL 0.57-1.25 Specimen slightly (test code = 358) hemolyzed GLUCOSE RANDOM 160 mg/dL 70-105 H (BEAKER) (test code = 652) CALCIUM (BEAKER) 9.5 mg/dL 8.4-10.2 (test code = 697) EGFR (BEAKER) (test 81 mL/min/1.73 ESTIMA MITCH GFR IS code = 1092) sq m NOT ACCURATE CREATININE CLEARANCE IN PREDICTING GLOMERULAR FILTRATION RATE . ESTIMATED GFR I S NOT APPLICABLE FOR DIALYSIS PATIEN TS. CBC W/PLT COUNT & AUTO [id number] 05:43:00 Test Item Value Reference Range Interpretation Comments WHITE BLOOD CELL COUNT (BEAKER) 5.2 K/ L 3.5-10.5 (test code = 775) RED BLOOD CELL COUNT (BEAKER) 4.00 M/ L 4.63-6.08 L (test code = 761) HEMOGLOBIN (BEAKER) (test code = 12.5 GM/DL 13.7-17.5 L 410) HEMATOCRIT (BEAKER) (test code = 36.6 % 40.1-51.0 L 411) MEAN CORPUSCULAR VOLUME (BEAKER) 91.5 fL 79.0-92.2 (test code = 753) MEAN CORPUSCULAR HEMOGLOBIN 31.3 pg 25.7-32.2 (BEAKER) (test code = 751) MEAN CORPUSCULAR HEMOGLOBIN CONC 34.2 GM/DL 32.3-36.5 (BEAKER) (test code = 752) RED CELL DISTRIBUTION WIDTH 12.8 % 11.6-14.4 (BEAKER) (test code = 412) PLATELET COUNT (BEAKER) (test 266 K/CU MM 150-450 code = 756) MEAN PLATELET VOLUME (BEAKER) 8.8 fL 9.4-12.4 L (test code = 754) NUCLEATED RED BLOOD CELLS 0 /100 WBC 0-0 (BEAKER) (test code = 413) NEUTROPHILS RELATIVE PERCENT 64 % (BEAKER) (test code = 429) LYMPHOCYTES RELATIVE PERCENT 23 % (BEAKER) (test code = 430) MONOCYTES RELATIVE PERCENT 8 % (BEAKER) (test code = 431) EOSINOPHILS RELATIVE PERCENT 4 % (BEAKER) (test code = 432) BASOPHILS RELATIVE PERCENT 1 % (BEAKER) (test code = 437) NEUTROPHILS ABSOLUTE COUNT 3.32 K/ L 1.78-5.38 (BEAKER) (test code = 670) LYMPHOCYTES ABSOLUTE COUNT 1.18 K/ L 1.32-3.57 L (BEAKER) (test code = 414) MONOCYTES ABSOLUTE COUNT (BEAKER) 0.44 K/ L 0.30-0.82 (test code = 415) EOSINOPHILS ABSOLUTE COUNT 0.19 K/ L 0.04-0.54 (BEAKER) (test code = 416) BASOPHILS ABSOLUTE COUNT (BEAKER) 0.05 K/ L 0.01-0.08 (test code = 417) IMMATURE GRANULOCYTES-RELATIVE 1 % 0-1 PERCENT (BEAKER) (test code = 2801) MR, MRA, BRAIN, WITHOUT [id number] 13:25:00Reason for exam:- >StrokeWhat is the patient's sedation requirement?->No SedationIs the [...] sinuses and mastoid air cells are unremarkable. Impressions:No evidence of acute infarct. Mild involutional and chronic white matter microvascular ischemic changes. Motion degraded exam. MRA head Comparison: No priors Reason for exam: Stroke evaluation Discussion: 3-D ujsn-yb-gvahfh MRA of the head was provided with maximal intensity projection 3-D reconstructions of the intracranial arterial vasculatures. Exam is markedly limited by motion degradation. No definite evidence of major branch vessel occlusion orcritical stenosis. No large aneurysm is identified. There is persistence of right posterior cir culation. Diminished flow in the right P2 segment is probably due to vessel tortuosity and motion. Signed: Ranjit Early MDReport Verified Date/Time: 09/21/2018 13:25:57 Reading Location: [address] Neuro Reading Room MR, BRAIN, WITHOUT CONTRAST 2018-09-21 13:25:00Reason for exam:->StrokeWhat is the patient's sedation requirement?->No SedationIs the [...] sinuses and mastoid air cells are unremarkable. Impressions:No evidence of acute infarct. Mild involutional and chronic white matter microvascular ischemic changes. Motion degraded exam. MRA head Comparison: No priors Reason for exam: Stroke evaluation Discussion: 3-D umuf-dq-bikmke MRA of the head was providedwith maximal intensity projection 3-D reconstructions of the intracranial arterial vasculatures. Exam is markedly limited by motion degradation. No definite evidence of major branch vessel occlusion orcritical stenosis. No large aneurysm is identified. There is persistence of right posterior circulation. Diminished flow in the right P2 segment is probably due to vessel tortuosity and motion. Signed: Ranjit Early MDReport Verified Date/Time: 09/21/2018 13:25:57 Reading Location: [address] Neuro Reading Room HEMOGLOBIN [id number] 07:25:00 Test Item Value Reference Range Interpretation Comments HEMOGLOBIN A1C (BEAKER) (test code = 7.2 % 4.3-6.1 H 368) BASIC METABOLIC [id number] 07:08:00 Test Item Value Reference Range Interpretation Comments SODIUM (BEAKER) 137 meq/L 136-145 (test code = 381) POTASSIUM (BEAKER) 3.6 meq/L 3.5-5.1 (test code = 379) CHLORIDE (BEAKER) 104 meq/L 98-107 (test code = 382) CO2 (BEAKER) (test 22 meq/L 22-29 code = 355) BLOOD UREA NITROGEN 23 mg/dL 7-21 H (BEAKER) (test code = 354) CREATININE (BEAKER) 1.02 mg/dL 0.57-1.25 (test code = 358) GLUCOSE RANDOM 156 mg/dL 70-105 H (BEAKER) (test code = 652) CALCIUM (BEAKER) 9.5 mg/dL 8.4-10.2 (test code = 697) EGFR (BEAKER) (test 73 mL/min/1.73 ESTIMA MITCH GFR IS code = 1092) sq m NOT ACCURATE CREATININE CLEARANCE IN PREDICTING GLOMERULAR FILTRATION RATE . ESTIMATED GFR I S NOT APPLICABLE FOR DIALYSIS PATIEN TS. LIPID [id number] 07:08:00 Test Item Value Reference Range Interpretation Comments TRIGLYCERIDES (BEAKER) (test code = 606 mg/dL 540) CHOLESTEROL (BEAKER) (test code = 149 mg/dL 631) HDL CHOLESTEROL (BEAKER) (test code 27 mg/dL = 976) Calculated LDL not valid if triglyceride >400 mg/dLTriglyceride Reference Range: Low Risk <150 Borderline 150-199 High Risk 200-499 Very High Risk >=500Cholesterol Reference Range: Low Risk <200 Borderline 200-239 High Risk >240HDL Cholesterol Reference Range: Low Risk >=60 High Risk <40LDL Cholesterol ReferenceRange: Optimal <100 Near Optimal 100-129 Borderline 130-159 High 160-189 Very High >=190CBC W/PLT COUNT & AUTO [id number] 06:09:00 Test Item Value Reference Range Interpretation Comments WHITE BLOOD CELL COUNT (BEAKER) 4.8 K/ L 3.5-10.5 (test code = 775) RED BLOOD CELL COUNT (BEAKER) 4.00 M/ L 4.63-6.08 L (test code = 761) HEMOGLOBIN (BEAKER) (test code = 12.2 GM/DL 13.7-17.5 L 410) HEMATOCRIT (BEAKER) (test code = 37.4 % 40.1-51.0 L 411) MEAN CORPUSCULAR VOLUME (BEAKER) 93.5 fL 79.0-92.2 H (test code = 753) MEAN CORPUSCULAR HEMOGLOBIN 30.5 pg 25.7-32.2 (BEAKER) (test code = 751) MEAN CORPUSCULAR HEMOGLOBIN CONC 32.6 GM/DL 32.3-36.5 (BEAKER) (test code = 752) RED CELL DISTRIBUTION WIDTH 13.1 % 11.6-14.4 (BEAKER) (test code = 412) PLATELET COUNT (BEAKER) (test 280 K/CU MM 150-450 code = 756) MEAN PLATELET VOLUME (BEAKER) 8.9 fL 9.4-12.4 L (test code = 754) NUCLEATED RED BLOOD CELLS 0 /100 WBC 0-0 (BEAKER) (test code = 413) NEUTROPHILS RELATIVE PERCENT 61 % (BEAKER) (test code = 429) LYMPHOCYTES RELATIVE PERCENT 22 % (BEAKER) (test code = 430) MONOCYTES RELATIVE PERCENT 11 % (BEAKER) (test code = 431) EOSINOPHILS RELATIVE PERCENT 4 % (BEAKER) (test code = 432) BASOPHILS RELATIVE PERCENT 2 % (BEAKER) (test code = 437) NEUTROPHILS ABSOLUTE COUNT 2.90 K/ L 1.78-5.38 (BEAKER) (test code = 670) LYMPHOCYTES ABSOLUTE COUNT 1.06 K/ L 1.32-3.57 L (BEAKER) (test code = 414) MONOCYTES ABSOLUTE COUNT (BEAKER) 0.50 K/ L 0.30-0.82 (test code = 415) EOSINOPHILS ABSOLUTE COUNT 0.21 K/ L 0.04-0.54 (BEAKER) (test code = 416) BASOPHILS ABSOLUTE COUNT (BEAKER) 0.07 K/ L 0.01-0.08 (test code = 417) IMMATURE GRANULOCYTES-RELATIVE 0 % 0-1 PERCENT (BEAKER) (test code = 2801) [id number] 19:53:00 Test Item Value Reference Range Interpretation Comments MAGNESIUM (BEAKER) 2.0 mg/dL 1.6-2.6 Specimen slightly (test code = 627) hemolyzed BASIC METABOLIC [id number] 19:53:00 Test Item Value Reference Range Interpretation Comments SODIUM (BEAKER) 140 meq/L 136-145 (test code = 381) POTASSIUM (BEAKER) 4.1 meq/L 3.5-5.1 Specimen slightly (test code = 379) hemolyzed CHLORIDE (BEAKER) 104 meq/L 98-107 (test code = 382) CO2 (BEAKER) (test 24 meq/L 22-29 code = 355) BLOOD UREA NITROGEN 23 mg/dL 7-21 H (BEAKER) (test code = 354) CREATININE (BEAKER) 1.10 mg/dL 0.57-1.25 Specimen slightly (test code = 358) hemolyzed GLUCOSE RANDOM 135 mg/dL 70-105 H (BEAKER) (test code = 652) CALCIUM (BEAKER) 10.3 mg/dL 8.4-10.2 H (test code = 697) EGFR (BEAKER) (test 67 mL/min/1.73 ESTIMA MITCH GFR IS code = 1092) sq m NOT ACCURATE CREATININE CLEARANCE IN PREDICTING GLOMERULAR FILTRATION RATE . ESTIMATED GFR I S NOT APPLICABLE FOR DIALYSIS PATIEN TS. CBC W/PLT COUNT & AUTO [id number] 19:35:00 Test Item Value Reference Range Interpretation Comments WHITE BLOOD CELL COUNT (BEAKER) 6.4 K/ L 3.5-10.5 (test code = 775) RED BLOOD CELL COUNT (BEAKER) 4.47 M/ L 4.63-6.08 L (test code = 761) HEMOGLOBIN (BEAKER) (test code = 14.0 GM/DL 13.7-17.5 410) HEMATOCRIT (BEAKER) (test code = 42.6 % 40.1-51.0 411) MEAN CORPUSCULAR VOLUME (BEAKER) 95.3 fL 79.0-92.2 H (test code = 753) MEAN CORPUSCULAR HEMOGLOBIN 31.3 pg 25.7-32.2 (BEAKER) (test code = 751) MEAN CORPUSCULAR HEMOGLOBIN CONC 32.9 GM/DL 32.3-36.5 (BEAKER) (test code = 752) RED CELL DISTRIBUTION WIDTH 13.2 % 11.6-14.4 (BEAKER) (test code = 412) PLATELET COUNT (BEAKER) (test 268 K/CU MM 150-450 code = 756) MEAN PLATELET VOLUME (BEAKER) 9.4 fL 9.4-12.4 (test code = 754) NUCLEATED RED BLOOD CELLS 0 /100 WBC 0-0 (BEAKER) (test code = 413) NEUTROPHILS RELATIVE PERCENT 65 % (BEAKER) (test code = 429) LYMPHOCYTES RELATIVE PERCENT 21 % (BEAKER) (test code = 430) MONOCYTES RELATIVE PERCENT 9 % (BEAKER) (test code = 431) EOSINOPHILS RELATIVE PERCENT 4 % (BEAKER) (test code = 432) BASOPHILS RELATIVE PERCENT 1 % (BEAKER) (test code = 437) NEUTROPHILS ABSOLUTE COUNT 4.11 K/ L 1.78-5.38 (BEAKER) (test code = 670) LYMPHOCYTES ABSOLUTE COUNT 1.30 K/ L 1.32-3.57 L (BEAKER) (test code = 414) MONOCYTES ABSOLUTE COUNT (BEAKER) 0.58 K/ L 0.30-0.82 (test code = 415) EOSINOPHILS ABSOLUTE COUNT 0.25 K/ L 0.04-0.54 (BEAKER) (test code = 416) BASOPHILS ABSOLUTE COUNT (BEAKER) 0.08 K/ L 0.01-0.08 (test code = 417) IMMATURE GRANULOCYTES-RELATIVE 1 % 0-1 PERCENT (BEAKER) (test code = 2801)
[2020-03-11 19:35] LABS: Arterial Blood Carboxyhemoglob 1.2 % (0-1.5); Blood Gas Oxyhemoglobin 94.3 % (94-97); Blood O2 Saturation 96.3 % (92-98.5)
[2020-03-11] MEDS ORDERED: INSULIN -REGULAR HUMAN 50 UNIT/0.5 ML ML ONE (19:40)
[2020-03-11] MEDS ORDERED: NA CHLORIDE 0.9% 1,000 ML ONE (19:40)
[2020-03-11 19:50] LABS: Absolute Lymphocytes (CBC) 1.3 K/uL (0.7-4.9); Basophils % 1.1 % (0-1.3); Hematocrit 42.9 % (39.6-49.0); MPV 7.6 fL (7.6-11.3); RBC Red Blood Cell Count 4.76 M/uL (4.33-5.43)
[2020-03-11 20:38] LABS: Albumin 3.3 g/dL (3.4-5.0); Bilirubin Total 0.3 mg/dL (0.2-1.0); Potassium 4.3 mmol/L (3.5-5.1)
[2020-03-11 20:55] LABS: Urine Blood NEGATIVE (NEG); Urine Glucose 2+ (NEG); Urine Protein NEGATIVE (NEG); Urine Specific Gravity 1.015 (1.005-1.030); Urine pH 6.5 (5.0-7.0)
--- NOTE | 2020-03-11 21:19 | ER ---
Nurse's Notes [facility] Name: Ata Ramos Jr Age: 69 yrs Sex: Male : 1950 Arrival Date: 03/11/2020 Time: 18:48 Bed 16 Private MD: Diagnosis: Hyperglycemia, unspecified Presentation: 03/11 18:53 Chief complaint: Chief complaint: Patient states: High blood sugar today. Pt reports ss his blood sugar has been 250 all day and shot up to 470 this evening. Coronavirus screen: Client denies travel out of the [place] in the last 14 days. Ebola Screen: Patient denies exposure to infectious person. Patient denies travel to an Ebola-affected area in the 21 days before illness onset. Initial Sepsis Screen: Does the patient meet any 2 criteria? No. Patient's initial sepsis screen is negative. Does the patient have a suspected source of infection? No. Patient's initial sepsis screen is negative. Risk Assessment: Do you want to hurt yourself or someone else? Patient reports no desire to harm self or others. Onset of symptoms was March 11, 2020. 18:53 Method Of Arrival: Ambulatory ss 18:53 Acuity: TORRES 3 ss Historical: - Allergies: 18:56 Codeine; ss - PMHx: 18:56 "fluid retention"; Cancer; Diabetes - IDDM; Hypertension; neuropathy; Prostate cancer ss in remission; - PSHx: 18:56 Cholecystectomy; R knee replacement; ss - Immunization history:: Adult Immunizations up to date. - Social history:: Smoking status: Patient denies any tobacco usage or history of. Screenin:47 Abuse screen: Denies threats or abuse. Denies injuries from another. Nutritional wh screening: No deficits noted. Tuberculosis screening: No symptoms or risk factors identified. Fall Risk None identified. Assessment: 18:56 Reassessment: Pt has a continues blood glucose monitor which is currently reading 470. ss 19:21 Reassessment: Notified Provider Pt BS 462. wh 19:46 General: Appears in no apparent distress. Behavior is calm, cooperative, appropriate wh for age. Pain: Denies pain. Neuro: Level of Consciousness is awake, alert, obeys commands, Oriented to person, place, time, situation, Appropriate for age. Cardiovascular: Capillary refill < 3 seconds. Respiratory: Airway is patent Respiratory effort is even, unlabored, Respiratory pattern is regular, symmetrical. GI: Abdomen is flat, non-distended. : No signs and/or symptoms were reported regarding the genitourinary system. EENT: No signs and/or symptoms were reported regarding the EENT system. Derm: Skin is intact, is healthy with good turgor, Skin is pink, warm \\T\\ dry. normal. Musculoskeletal: Circulation, motion, and sensation intact. 21:00 Reassessment: Patient appears in no apparent distress at this time. No changes from previously documented assessment. Patient and/or family updated on plan of care and expected duration. Pain level reassessed. Patient is alert, oriented x 3, equal unlabored respirations, skin warm/dry/pink. 21:45 Reassessment: Patient appears in no apparent distress at this time. Patient and/or family updated on plan of care and expected duration. Pain level reassessed. Patient is alert, oriented x 3, equal unlabored respirations, skin warm/dry/pink. Patient states feeling better. Patient states symptoms have improved. Vital Signs: 18:53 BP 138 / 96; Pulse 89; Resp 16; Temp 97.0(TE); Pulse Ox 98% on R/A; Weight 102.97 kg; Height 6 ft. 0 in. (182.88 cm); Pain 0/10; 19:47 BP 136 / 83; Pulse 79; Resp 18; Pulse Ox 97% on R/A; wh 20:30 BP 133 / 89; Pulse 86; Resp 18; Pulse Ox 98% ; wh 21:30 BP 136 / 89; Pulse 80; Resp 18; Pulse Ox 97% on R/A; wh 18:53 Body Mass Index 30.79 (102.97 kg, 182.88 cm) ED Course: 18:48 Patient arrived in ED. as 18:55 Triage completed. 18:56 Arm band placed on left wrist. 18:57 Amandeep Feliciano PA is PHCP. [facility] 18:57 Miller Escalante MD is Attending Physician. [facility] 19:21 Suha Lion is Primary Nurse. 19:40 Inserted saline lock: 20 gauge in right antecubital area, using aseptic technique. mt Blood collected. 19:47 Patient has correct armband on for positive identification. Placed in gown. Bed in low wh position. Call light in reach. Side rails up X 1. Pulse ox on. NIBP on. 21:50 No provider procedures requiring assistance completed. IV discontinued, intact, bleeding controlled, No redness/swelling at site. Administered Medications: 19:48 Drug: NS 0.9% 1000 ml Route: IV; Rate: 1 bolus; Site: right antecubital; 21:51 Follow up: Response: No adverse reaction; IV Status: Completed infusion 19:48 Drug: Insulin Regular Human 10 units {Co-Signature: rachelle (Kunal Neil RN).} Route: IVP; Site: right antecubital; 21:51 Follow up: Response: No adverse reaction; Blood sugar is lowered Point of Care Testing: Blood Glucose: 19: Blood Glucose: 462 mg/dL; Ranges: Outcome: 21:18 Discharge ordered by . [facility] 21:51 Discharged to home ambulatory. 21:51 Condition: stable 21:51 Discharge instructions given to patient, Instructed on discharge instructions, follow up and referral plans. POC Demonstrated understanding of instructions, follow-up care, POC 21:52 Patient left the ED. Signatures: Amandeep Feliciano PA PA jmm Martinez, Amelia as Smirch, Shelby, Adalgisa Fall RN, mt, Winsy Kunal [email or web address]
--- NOTE | 2020-03-11 21:19 | EDPHYS ---
Physician Documentation [facility] Name: Ata Ramos Jr Age: 69 yrs Sex: Male : 1950 Arrival Date: 03/11/2020 Time: 18:48 Bed 16 Private MD: ED Physician Miller Escalante HPI: 03/11 19:01 This 69 yrs old Male presents to ER via Ambulatory with complaints of High jmm Blood Sugar. 19:01 The patient or guardian reports hyperglycemia. Onset: The symptoms/episode jmm began/occurred today. Associated signs and symptoms: Pertinent positives: nausea, polydipsia. The patient has not experienced similar symptoms in the past. Historical: - Allergies: 18:56 Codeine; ss - PMHx: 18:56 "fluid retention"; Cancer; Diabetes - IDDM; Hypertension; neuropathy; Prostate cancer ss in remission; - PSHx: 18:56 Cholecystectomy; R knee replacement; ss - Immunization history:: Adult Immunizations up to date. - Social history:: Smoking status: Patient denies any tobacco usage or history of. ROS: 19:01 Constitutional: Negative for fever, chills, and weight loss. jmm 20:00 Cardiovascular: Negative for chest pain, palpitations, and edema, Respiratory: Negative jmm for shortness of breath, cough, wheezing, and pleuritic chest pain. 20:00 Abdomen/GI: Positive for nausea. 20:00 Neuro: Positive for weakness. 20:00 All other systems are negative. Exam: 20:00 Constitutional: This is a well developed, well nourished patient who is awake, alert, jmm and in no acute distress. Head/Face: atraumatic. Eyes: EOMI, no conjunctival erythema appreciated ENT: Moist Mucus Membranes Neck: Trachea midline, Supple Chest/axilla: Normal chest wall appearance and motion. Cardiovascular: Regular rate and rhythm. No edema appreciated Respiratory: Normal respirations, no respiratory distress appreciated Abdomen/GI: Non distended, soft Back: Normal ROM Skin: General appearance color normal MS/ Extremity: Moves all extremities, no obvious deformities appreciated, no edema noted to the lower extremities Neuro: Awake and alert, normal gait Psych: Behavior is normal, Mood is normal, Patient is cooperative and pleasant Vital Signs: 18:53 BP 138 / 96; Pulse 89; Resp 16; Temp 97.0(TE); Pulse Ox 98% on R/A; Weight 102.97 kg; ss Height 6 ft. 0 in. (182.88 cm); Pain 0/10; 19:47 BP 136 / 83; Pulse 79; Resp 18; Pulse Ox 97% on R/A; wh 20:30 BP 133 / 89; Pulse 86; Resp 18; Pulse Ox 98% ; wh 21:30 BP 136 / 89; Pulse 80; Resp 18; Pulse Ox 97% on R/A; wh 18:53 Body Mass Index 30.79 (102.97 kg, 182.88 cm) ss MDM: 19:01 Patient medically screened. [facility] 21:17 Data reviewed: vital signs, nurses notes. Counseling: I had a detailed discussion with mega the patient and/or guardian regarding: the historical points, exam findings, and any diagnostic results supporting the discharge/admit diagnosis, lab results, the need for outpatient follow up, to return to the emergency department if symptoms worsen or persist or if there are any questions or concerns that arise at home. ED course: BGL decreased in the ED. Patient states feeling much better. Advised to increase fluid uptake and use insulin sliding scale. Patient is otherwise given strict return precautions. Patient understood and agrees with the plan of care. . 03/11 19:15 Order name: CBC with Diff; Complete Time: 20:02 [facility] 03/11 19:15 Order name: CMP; Complete Time: 20:43 [facility] 03/11 19:20 Order name: ABG; Complete Time: 19:50 [facility] 03/11 19:29 Order name: Glucose, Ancillary Testing; Complete Time: 19:31 [facility] 03/11 20:53 Order name: Urine Dipstick--Ancillary (enter results); Complete Time: 21:01 [facility] 03/11 21:20 Order name: Glucose, Ancillary Testing; Complete Time: 21:21 [facility] 03/11 19:15 Order name: Saline Lock; Complete Time: 19:40 [facility] 03/11 19:15 Order name: Urine Dipstick-Ancillary (obtain specimen); Complete Time: 20:54 [facility] Administered Medications: 19:48 Drug: NS 0.9% 1000 ml Route: IV; Rate: 1 bolus; Site: right antecubital; 21:51 Follow up: Response: No adverse reaction; IV Status: Completed infusion 19:48 Drug: Insulin Regular Human 10 units {Co-Signature: [email or web address] (Kunal Neil RN).} Route: IVP; Site: right antecubital; 21:51 Follow up: Response: No adverse reaction; Blood sugar is lowered Point of Care Testing: Blood Glucose: 19:21 Blood Glucose: 462 mg/dL; Ranges: Critical Glucose Levels:Adult <50 mg/dl or >400 mg/dl <40 mg/dl or >180 mg/dl Disposition: 03/12 13:26 Co-signature as Attending Physician, Miller Escalante MD I agree with the assessment and kdr plan of care. Disposition: 03/11/20 21:18 Discharged to Home. Impression: Hyperglycemia, unspecified. - Condition is Stable. - Discharge Instructions: Hyperglycemia. - Medication Reconciliation Form, Thank You Letter, Antibiotic Education, Prescription Opioid Use form. - Follow up: Private Physician; When: 2 - 3 days; Reason: Recheck today's complaints, Continuance of care, Re-evaluation by your physician. Signatures: Dispatcher [employer] EDMS Miller Escalante MD MD kdr Mickail, Joel, PA PA [facility] Nishi Boateng, RN RN Suha Lion Kunal Neil RN [email or web address] Corrections: (The following items were deleted from the chart) 03/11 21:52 21:18 03/11/2020 21:18 Discharged to Home. Impression: Hyperglycemia, unspecified. Condition is Stable. Forms are Medication Reconciliation Form, Thank You Letter, Antibiotic Education, Prescription Opioid Use. Follow up: Private Physician; When: 2 - 3 days; Reason: Recheck today's complaints, Continuance of care, Re-evaluation by your physician. mega
[2020-03-11 22:20] VITALS: TEMP 97
[2020-03-11 22:30] VITALS: BP 136/89; O2SAT 97
== END 2020-03-11 21:52 | disposition home or self-care (01) ==
LOC: ER 18:46
DX: E11.65 Type 2 diabetes mellitus with hyperglycemia (principal); I10 Essential (primary) hypertension; Z85.46 Personal history of malignant neoplasm of prostate; Z88.5 Allergy status to narcotic agent
CPT/HCPCS: 96361; 85025; 36415; 82947 ×2; 81003; 80053; 82805; 96374; 99284; J7030

== ENCOUNTER 2020-04-09 19:06 | Observation (INO) | payer BC ==
--- OUTSIDE RECORDS SUMMARY | 2020-04-09 19:09 | XMS REPORT | Clinical Summary ---
:1950 Author Organization [facility] Address [address] [place] [address] Care Team Providers Name Role Phone Pcp [...] Description 04/10/2019 Hospital Encounter Computed Tomography [place] ostate cancer MD Ramos ([facility]) 1, [facility] [address] Room 04/10/2019 Hospital Encounter Computed Tomography [place] cancer MD Ramos ([facility]) 1, [facility] [address] Room 04/09/2019 Outside Orders Central Scheduling [place] Andres Prostat e cancer MD Ramos (HCC) (Primary Dx) after 04/09/2019 Social History Tobacco Use Types Packs/Day Years Used Date Never Smoker Smokeless Tobacco: Never Used Sex Assigned at Date Recorded Not on file Last Filed Vital Signs Not on file Plan of Treatment Health Maintenance Due Date Last Done Comments COLON CANCER SCREENING COLONOSCOPY 1950 DIABETIC EYE EXAM 1962 URINE MICROALBUMIN 1962 PNEUMOCOCCAL 65+ YRS (1 of 1 - [id number]) 2017 HEMOGLOBIN A1C 03/22/2019 09/20/2018 INFLUENZA VACCINE (#1) 2020 Procedures Procedure Name Priority Date/Time Associated Diagnosis Comme nts CT CHEST WITH IV Routine 04/10/2019 2:54 PM Prostate cancer R esults for this CONTRAST UI ENGINEER (HCC) procedure are i n the results section. CT ABDOMEN/PELVIS Routine 04/10/2019 2:54 PM Prostate cancer Results for this WITH IV CONTRAST UI ENGINEER (HCC) procedure a re in the results section. POCT-CREATININE Routine 04/10/2019 2:24 PM Resul ts for this UI ENGINEER procedure are i n the results section. after 04/09/[address] Abdomen/Pelvis with IV Contrast (04/10/2019 2:54 PM UI ENGINEER) Specimen Narrative Performed At FINAL REPORT [facility] of the chest, abdomen and pelvis, [...] ities likely reflecting fiducial markers. There is jqdm-gf-zfyqdjzn vascular calci fication. No lymphadenopathy, or ascites. Osseous structures demonstra te degenerative changes. Impression: No evidence of lymphadenopathy or distan t metastasis in the chest abdomen or pelvis. Hepatic steatosis. Status post cholecyst ectomy. 2 mm nonobstructive stone in the left ki dney. Mild colonic diverticulosis. Signed: Ranjit Early MD Report Verified Date/Time: 04/13/2019 10:33:48 Reading Location: [facility] [id number] [facility] Reading Room Procedure Note Interface, External Ris In - 04/13/2019 10:35 AM UI ENGINEER FINAL REPORT CT of the chest, abdomen [...] ities likely reflecting fiducial markers. There is rlll-xe-apeulyje vascular calci fication. No lymphadenopathy, or ascites. Osseous structures demonstra te degenerative changes. Impression: No evidence of lymphadenopathy or distan t metastasis in the chest abdomen or pelvis. Hepatic steatosis. Status post cholecyst ectomy. 2 mm nonobstructive stone in the left ki dney. Mild colonic diverticulosis. Signed: Ranjit Early MD Report Verified Date/Time: 04/13/2019 1 0:33:48 Reading Location: [facility] B1 [id number] [facility] Reading Room Performing Organization Address City/State/Zipcode Phone Number [facility] Chest with IV Contrast (04/10/2019 2:54 PM UI ENGINEER) Specimen Narrative Performed At FINAL REPORT [facility] of the chest, abdomen and pelvis, [...] ities likely reflecting fiducial markers. There is snyi-mj-yxyellhj vascular calci fication. No lymphadenopathy, or ascites. Osseous structures demonstra te degenerative changes. Impression: No evidence of lymphadenopathy or distan t metastasis in the chest abdomen or pelvis. Hepatic steatosis. Status post cholecyst ectomy. 2 mm nonobstructive stone in the left ki dney. Mild colonic diverticulosis. Signed: Ranjit Early MD Report Verified Date/Time: 04/13/2019 10:33:48 Reading Location: [facility] [id number] [facility] Reading Room Procedure Note Interface, External Ris In - 04/13/2019 10:35 AM UI ENGINEER FINAL REPORT CT of the chest, abdomen [...] ities likely reflecting fiducial markers. There is lvtd-yq-xidoobqa vascular calci fication. No lymphadenopathy, or ascites. Osseous structures demonstra te degenerative changes. Impression: No evidence of lymphadenopathy or distan t metastasis in the chest abdomen or pelvis. Hepatic steatosis. Status post cholecyst ectomy. 2 mm nonobstructive stone in the left ki dney. Mild colonic diverticulosis. Signed: Ranjit Early MD Report Verified Date/Time: 04/13/2019 1 0:33:48 Reading Location: [facility] B1 [id number] Reading Room Performing Organization Address City/State/Zipcode Phone Number GE RIS POC-Creatinine (04/10/2019 2:24 PM UI ENGINEER) POC-Creatinine 1.0Comment: TESTED 0.6 - 1.3 [facility] 7200 mg/dL [facility] [id number] POC-EGFR 75 mL/min/1.73M2 [facility] Specimen Blood Performing Organization Address City/[facility]/Zipcode Phone Number [facility] [address] [place], [place] [id number] CENTER after 04/09/2019 Insurance Payer Benefit Plan / Subscriber ID Effective Dates Phone Addre ss Type Group BLUE BCBS PPO POS [id number] 2016-Presen [phone] [id number] PPO CROSS/BLUE EPO CHOICE t 2 [facility] [id number] Advance Directives For more information, please contact: [phone] Code Status Date Activated Date Inactivated Comments Full Code 09/20/2018 4:46 PM 09/22/2018 12:55 PM This code status was determined by: Patient
--- OUTSIDE RECORDS SUMMARY | 2020-04-09 19:09 | XMS REPORT | Continuity of Care Document ---
:1950 Author Organization [facility] t Address [address] [place] [address] Care Team Providers Name Role Phone Pcp Primary Care Physician Unavailable Юлия Emmanuel MD Attending Clinician [address] Room Attending Clinician Unavailable ЮЛИЯ EMMANUEL Attending Clinician Unavailable Mckenna GARY, E Attending Clinician Yessenia MARINO Attending Clinician Unavailable Yessenia MARINO Admitting Clinician Unavailable Payers Payer Name Policy Type Policy Effective Date Expiration Date Sour ce Number CLIFFORD DE LEON/CLIFFORD [id number] 2016 ZAHIRA Perdue [employer] PPO 00:00:00 - Medical POS EPO Center [id number] [id number], [place] [id number] Problems Condition Condition Condition Status Onset Resolution [...] of of request prostate prostate for surgery [id number] Secondary Secondary Disease Active malignant malignant 10-31 [...] MG 10:55: mouth Medical capsule 47 nightly. [place] metoprolol Yes 25mg Q.5D Take 25 mg [...] Procedure Date / Time Performed Performing Clinician [facility] e CT ABDOMEN/PELVIS WITH 2019-04-10 14:54:[address] [facility] CHEST WITH IV 2019-04-10 14:54:[address] [facility] POCT-CREATININE 2019-04-10 14:24:[address] [facility] Plan of Care Planned Activity Planned Date Details Comments Source Future Scheduled 2020-01-26 INFLUENZA VACCINE (#1) [facility] - Test 00:00:00 [code = INFLUENZA Medical Ce nter VACCINE (#1)] Future Scheduled 2019-03-[address] [facility] - Test 00:00:00 [facility] (procedure) [code = 34771871] Future Scheduled 2017 PNEUMOCOCCAL 65+ YRS [facility] - Test 00:00:00 (1 of 1 - Medical Center [id number] PCV13) [code = PNEUMOCOCCAL 65+ YRS (1 of 1 - [id number] PCV13)] Future Scheduled 1962 DIABETIC EYE EXAM [facility] - Test 00:00:00 [code = DIABETIC EYE Medical Center EXAM] Future Scheduled 1962 Urine screening for [facility] - Test 00:00:00 protein (procedure) Medical Center [code = 552073438] Future Scheduled [address] [facility] Test 00:00:00 [facility] [code = 095030753] Encounters Start End Encounter Admission Attending Care Care Encounter Source Date/Time Date/Time Type Type Clinicians Facility Department ID 2019-03-24 2019-03-24 Office Virginia Emmanuel [facility] [id number] 09:52:37 10:16:53 Visit E [place] [id number] Results Test Description Test Time Test Comments Results Result Sourc e Comments CT, ABDOMEN 2019-04-13 FINAL REPORT PATIENT 10:33:00 ID: [id number] CT of the chest, abdomen and pelvis, [...] densities likely reflecting fiducial markers. There is jgtp-pl-ffuthjsr vascular calcification. No lymphadenopathy, or ascites. Osseous structures demonstrate degenerative changes. Impression: No evidence of lymphadenopathy or distant metastasis in the chest abdomen or pelvis. Hepatic steatosis. Status post cholecystectomy. 2 mm nonobstructive stone in the left kidney. Mild colonic diverticulosis. Signed: Ranjit Earlyeport Verified Date/Time: 04/13/2019 10:33:48 Reading Location: [facility] C013X Ortho Consult Reading Room , CHEST, WITH 2019-04-13 FINAL REPORT PATIENT IV CONTRAST 10:33:00 ID: [id number] CT of the chest, abdomen and pelvis, [...] densities likely reflecting fiducial markers. There is uaaz-ml-kwdeizvj vascular calcification. No lymphadenopathy, or ascites. Osseous structures demonstrate degenerative changes. Impression: No evidence of lymphadenopathy or distant metastasis in the chest abdomen or pelvis. Hepatic steatosis. Status post cholecystectomy. 2 mm nonobstructive stone in the left kidney. Mild colonic diverticulosis. Signed: Ranjit Early Verified Date/Time: 04/13/2019 10:33:48 Reading Location: [facility] C013X Ortho Consult Reading Room Chest with IV [...] densities likely reflecting fiducial markers. There is unac-pr-pjjbatdp vascular calcification. No lymphadenopathy, or ascites. Osseous structures demonstrate degenerative changes. Impression: No evidence of lymphadenopathy or distant metastasis in the chest abdomen or pelvis. Hepatic steatosis. Status post cholecystectomy. 2 mm nonobstructive stone in the left kidney. Mild colonic diverticulosis. Signed: Nneka, Ranjit MDReport Verified Date/Time: 04/13/2019 10:33:48 Reading Location: [facility] C013X Ortho Consult Reading Room Abdomen/Pelvis 2019-04-13 Interface, External [facility] with IV Contrast 10:33:00 Ris In - [...] densities likely reflecting fiducial markers. There is smxp-ks-irryfzhi vascular calcification. No lymphadenopathy, or ascites. Osseous structures demonstrate degenerative changes. Impression: No evidence of lymphadenopathy or distant metastasis in the chest abdomen or pelvis. Hepatic steatosis. Status post cholecystectomy. 2 mm nonobstructive stone in the left kidney. Mild colonic diverticulosis. Signed: Ranjit Earlyeport Verified Date/Time: 04/13/2019 10:33:48 Reading Location: [facility] C013X Ortho Consult Reading Room -Creatinine 2019-04-10 14:34:00 Test Item Value Reference Range Interpretation Comme nts POC-Creatinine (test code = 1.0 mg/dL 0.6-1.3 TESTED AT [facility] 7200 1859) [facility] [address] POC-EGFR (test code = 1860) 75 mL/min/1.73M2 [id number] 14:34:00 Test Item Value Reference Range Interpretation Comments POC-CREATININE 1.0 mg/dL 0.6-1.3 TESTED AT [facility] 7200 (BEAKER) (test [facility] code = 1859) [facility] 7703 0 POC-EGFR 75 mL/min/1.73M2 (BEAKER) (test code = 1860) [id number] 07:33:00 Test Item Value Reference Range Interpretation Comments MAGNESIUM (BEAKER) 1.9 mg/dL 1.6-2.6 Specimen slightly (test code = 627) hemolyzed BASIC METABOLIC [id number] 06:04:00 Test Item Value Reference Range Interpretation [...] PATIEN TS. CBC W/PLT COUNT & AUTO [id number] 05:43:00 Test Item Value Reference Range Interpretation [...] code = 2801) MR, MRA, BRAIN, WITHOUT [id number] 13:25:00Reason for exam:- >StrokeWhat is the patient's [...] Reason for exam: Stroke evaluation Discussion: 3-D dzcj-ht-xokzek MRA of the head was provided with [...] MDReport Verified Date/Time: 09/21/2018 13:25:57 Reading Location: [address] Neuro Reading Room MR, BRAIN, WITHOUT [...] Reason for exam: Stroke evaluation Discussion: 3-D myxi-oj-ahjutk MRA of the head was providedwith maximal [...] Early Verified Date/Time: 09/21/2018 13:25:57 Reading Location: [address] Neuro Reading Room HEMOGLOBIN [id number] 07:25:00 Test Item Value Reference Range Interpretation Comments HEMOGLOBIN A1C (BEAKER) (test code = 7.2 % 4.3-6.1 H 368) BASIC METABOLIC [id number] 07:08:00 Test Item Value Reference Range Interpretation [...] NOT APPLICABLE FOR DIALYSIS PATIEN TS. LIPID [id number] 07:08:00 Test Item Value Reference Range Interpretation [...] Very High >=190CBC W/PLT COUNT & AUTO [id number] 06:09:00 Test Item Value Reference Range Interpretation [...] 0-1 PERCENT (BEAKER) (test code = 2801) [id number] 19:53:00 Test Item Value Reference Range Interpretation Comments MAGNESIUM (BEAKER) 2.0 mg/dL 1.6-2.6 Specimen slightly (test code = 627) hemolyzed BASIC METABOLIC [id number] 19:53:00 Test Item Value Reference Range Interpretation [...] PATIEN TS. CBC W/PLT COUNT & AUTO [id number] 19:35:00 Test Item Value Reference Range Interpretation [...] % 0-1 PERCENT (BEAKER) (test code = 3761)
[2020-04-09 19:42] LABS: Absolute Lymphocytes (CBC) 1.1 K/uL (0.7-4.9); Basophils % 0.8 % (0-1.3); Hematocrit 40.4 % (39.6-49.0); Lymphocytes % 13.3 % (15.3-44.8); RBC Red Blood Cell Count 4.49 M/uL (4.33-5.43)
[2020-04-09 19:43] LABS: Protime INR 0.97
[2020-04-09] MEDS ORDERED: ASPIRIN 81 MG CHEWABLE TABLET ONE (19:48)
[2020-04-09] MEDS ORDERED: NA CHLORIDE 0.9% 1,000 ML ONE (19:49)
[2020-04-09] MEDS ORDERED: FENTANYL CITR 100 MCG/2 ML ONE (19:49)
[2020-04-09] MEDS ORDERED: ONDANSETRON 4 MG/2 ML VIAL ONE (19:49)
[2020-04-09 20:00] LABS: ALT/SGPT 29 U/L (12-78); Albumin 3.3 g/dL (3.4-5.0); Alkaline Phosphatase 98 U/L (45-117); BUN Blood Urea Nitrogen 33 mg/dL (7-18); Bicarbonate 24 mmol/L (21-32); Bilirubin Direct < 0.1 mg/dL (0-0.2); Bilirubin Total 0.5 mg/dL (0.2-1.0); NT PRO-BNP 136 pg/mL (<125); Protein, Total 6.9 g/dL (6.4-8.2); Sodium Level 131 mmol/L (136-145); Troponin (Emerg Dept Use Only) < 0.02 ng/mL (0.0-0.045)
[2020-04-09 20:01] LABS: AST/SGOT 23 U/L (15-37); Potassium 4.9 mmol/L (3.5-5.1)
[2020-04-09] MEDS ORDERED: INSULIN -REGULAR HUMAN 50 UNIT/0.5 ML ML ONE ×2 (20:01→21:33)
[2020-04-09 20:03] LABS: Glucose Level 682 mg/dL (74-106)
[2020-04-09 20:11] LABS: Urine Blood NEGATIVE (NEG); Urine Glucose 2+ (NEG); Urine Protein NEGATIVE (NEG); Urine Specific Gravity 1.005 (1.005-1.030)
--- NOTE | 2020-04-09 20:18 | RAD REPORT ---
EXAM DESCRIPTION: Benito Single View04/09/2020 7:59 pm CLINICAL HISTORY: Chest pain COMPARISON: 2019 FINDINGS: The lungs appear clear of acute infiltrate. The heart is normal size IMPRESSION: No acute abnormalities displayed
--- NOTE | 2020-04-09 20:28 | EDPHYS ---
Physician Documentation [facility] Name: Ata Ramos Jr Age: 69 yrs Sex: Male : 1950 Arrival Date: 04/09/2020 Time: 19:07 Bed 6 Private MD: ED Physician Gary Wyatt HPI: 04/09 19:25 This 69 yrs old Male presents to ER via Ambulatory with complaints of Chest cp Pressure. 19:25 The patient or guardian reports chest pain that is located primarily in the anterior cp chest wall, bilaterally. 19:25 Onset: 1 hour(s) ago. The pain does not radiate. Associated signs and symptoms: cp Pertinent negatives: abdominal pain, cough, diaphoresis, dizziness, lower extremity pain, lower extremity swelling, shortness of breath, syncope. The chest pain is described as sharp. Duration: The patient or guardian reports a single episode, that is still ongoing, and unchanged. Historical: - Allergies: 19:23 Codeine; jd3 - Home Meds: 19:23 fenofibrate 160 mg Oral tab 1 tab once daily [Active]; gabapentin 100 mg Oral tab jd3 [Active]; hydrochlorothiazide 12.5 mg Oral tab 1 cap once daily [Active]; metformin 500 mg Oral tab 1 tab 2 times per day [Active]; prednisone 5 mg Oral tab once daily [Active]; tamsulosin 0.4 mg Oral cp24 1 cap once daily [Active]; metoprolol tartrate 25 mg Oral tab 1 tab 2 times per day [Active]; Zytiga 250 mg Oral tab 4 tabs once daily [Active]; - PMHx: 19:23 Hypertension; neuropathy; Diabetes - NIDDM; Cancer; Prostate cancer in remission; jd3 "fluid retention"; - PSHx: 19:23 Cholecystectomy; R knee replacement; right foot; jd3 - Immunization history:: Adult Immunizations up to date. - Social history:: Smoking status: Patient denies any tobacco usage or history of. ROS: 19:30 Constitutional: Negative for body aches, chills, fever, poor PO intake. cp 19:30 Eyes: Negative for injury, pain, redness, and discharge. cp 19:30 ENT: Negative for ear pain, sore throat, difficulty swallowing, difficulty handling secretions. 19:30 Cardiovascular: Positive for chest pain, Negative for edema, palpitations. 19:30 Respiratory: Negative for cough, shortness of breath, wheezing. 19:30 Abdomen/GI: Negative for abdominal pain, nausea, vomiting, and diarrhea. 19:30 Back: Negative for radiated pain. 19:30 Neuro: Negative for altered mental status, dizziness, headache, weakness. 19:30 All other systems are negative. Exam: 19:32 ECG was reviewed by the Attending Physician. cp 19:35 Constitutional: The patient appears in no acute distress, alert, awake, cp non-diaphoretic, non-toxic, well developed, well nourished. 19:35 Head/Face: Normocephalic, atraumatic. cp 19:35 Eyes: Periorbital structures: appear normal, Conjunctiva: normal, no exudate, no injection, Sclera: no appreciated abnormality, Lids and lashes: appear normal, bilaterally. 19:35 ENT: External ear(s): are unremarkable, Nose: is normal, Mouth: Lips: moist, Oral mucosa: moist, Posterior pharynx: Airway: no evidence of obstruction, patent. 19:35 Neck: ROM/movement: is normal, is supple, without pain, no range of motions limitations. 19:35 Chest/axilla: Inspection: normal, Palpation: is normal, no crepitus, no tenderness. 19:35 Cardiovascular: Rate: normal, Rhythm: regular, Edema: is not appreciated, JVD: is not appreciated. 19:35 Respiratory: the patient does not display signs of respiratory distress, Respirations: normal, no use of accessory muscles, no retractions, labored breathing, is not present, Breath sounds: are clear throughout, no decreased breath sounds, no stridor, no wheezing. 19:35 Abdomen/GI: Inspection: abdomen appears normal, Palpation: abdomen is soft and non-tender, in all quadrants. 19:35 Back: pain, is absent, ROM is normal. 19:35 Skin: no rash present. 19:35 Neuro: Orientation: to person, place \\T\\ time. Mentation: is normal, Cerebellar function: Romberg testing is negative, Motor: moves all fours, strength is normal, Sensation: no obvious gross deficits. Vital Signs: 19:24 BP 95 / 77; Pulse 93; Resp 17 S; Temp 97.6(TE); Pulse Ox 97% on R/A; Weight 98.88 kg jd3 (R); Height 6 ft. 0 in. (182.88 cm) (R); Pain 8/10; 19:39 BP 117 / 71; Pulse 89; Resp 18; Pulse Ox 96% on R/A; mg2 20:14 BP 109 / 67; Pulse 87; Resp 18; Pulse Ox 97% ; ea 21:54 BP 98 / 54; Pulse 85; Resp 16; Pulse Ox 98% ; ea 19:24 Body Mass Index 29.57 (98.88 kg, 182.88 cm) jd3 MDM: 19:16 Patient medically screened. cp 20:25 Data reviewed: vital signs, nurses notes, lab test result(s), EKG, radiologic studies, cp plain films. 20:25 The patient was given aspirin in the Emergency Department. Test interpretation: by ED cp physician or midlevel provider: ECG, chest xray negative for infiltrates. Counseling: I had a detailed discussion with the patient and/or guardian regarding: the historical points, exam findings, and any diagnostic results supporting the discharge/admit diagnosis, lab results, radiology results, the need for further work-up and treatment in the hospital. Response to treatment: the patient's symptoms have markedly improved after treatment. 04/09 19:23 Order name: Basic Metabolic Panel; Complete Time: 20:15 cp 04/09 19:23 Order name: CBC with Diff; Complete Time: 20:15 cp 04/09 19:23 Order name: LFT's; Complete Time: 20:15 cp 04/09 19:23 Order name: Magnesium; Complete Time: 20:15 cp 04/09 19:23 Order name: NT PRO-BNP; Complete Time: 20:15 cp 04/09 19:23 Order name: PT-INR; Complete Time: 20:15 04/09 19:23 Order name: Troponin (emerg Dept Use Only); Complete Time: 20:15 cp 04/09 19:23 Order name: XRAY Chest (1 view); Complete Time: 21:31 cp 04/09 21:31 Interpretation: Report reviewed. 04/09 19:36 Order name: Ketone, Serum; Complete Time: 20:15 cp 04/09 19:43 Order name: Glucose, Ancillary Testing; Complete Time: 20:15 EDMS 04/09 19:49 Order name: Urine Dipstick--Ancillary (enter results); Complete Time: 20:15 ds4 04/09 21:12 Order name: Glucose, Ancillary Testing; Complete Time: 21:27 EDMS 04/09 19:23 Order name: EKG; Complete Time: 19:23 cp 04/09 19:23 Order name: Cardiac monitoring; Complete Time: 19:35 cp 04/09 19:23 Order name: EKG - Nurse/Tech; Complete Time: 19:35 cp 04/09 19:23 Order name: IV Saline Lock; Complete Time: 19:36 cp 04/09 19:23 Order name: Labs collected and sent; Complete Time: 19:36 cp 04/09 19:23 Order name: O2 Per Protocol; Complete Time: 19:36 cp 04/09 19:23 Order name: O2 Sat Monitoring; Complete Time: 19:36 cp EC:32 Rate is 91 beats/min. Rhythm is regular. MA interval is normal. QRS interval is normal. cp QT interval is normal. T waves are Inverted in lead aVR. Interpreted by me. Reviewed by me. Administered Medications: 19:40 Drug: Zofran (Ondansetron) 4 mg Route: IVP; Site: left antecubital; ea 20:25 Follow up: Response: No adverse reaction mg2 19:44 Drug: NS 0.9% 1000 ml Route: IV; Rate: 1 bolus; Site: left antecubital; ea 21:37 Follow up: Response: No adverse reaction; IV Status: Completed infusion; IV Intake: mg2 1000ml 19:44 Drug: fentaNYL (PF) 25 mcg Route: IVP; Site: left antecubital; ea 20:25 Follow up: Response: No adverse reaction mg2 19:45 Drug: Aspirin Chewable Tablet 324 mg Route: PO; ea 20:25 Follow up: Response: No adverse reaction mg2 19:51 Drug: Insulin Regular Human 10 units {Co-Signature: nick (Meli Perez RN).} Route: IVP; mg2 Site: left antecubital; 21:37 Follow up: Response: No adverse reaction; Blood sugar is lowered mg2 21:35 Drug: Insulin Regular Human 5 units {Co-Signature: nick (Meli Perez RN).} Route: IVP; mg2 Site: right antecubital; Disposition: 04/10 07:23 Co-signature as Attending Physician, Gary Wyatt MD. [email or web address] Disposition: 04/09/20 20:27 Hospitalization ordered by Sunny Black for Observation. Preliminary diagnosis are Chest pain, unspecified, Diabetes mellitus due to underlying condition with hyperglycemia. - Bed requested for Telemetry/MedSurg (observation). - Status is Observation. mg2 - Condition is Stable. - Problem is new. - Symptoms have improved. Signatures: Dispatcher [employer] EDMS Josh Carbajal, RESPITE COORDINATOR-C RESPITE COORDINATOR-Cla1 Leland Villafuerte PA PA cp Garcia, Cindy, RN RN cg Meli Perez, RN RN Kunal Medina, RN RN Wayne Olsen, RN Gary Carmen MD MD 7 Meli Perez RN, ea Corrections: (The following items were deleted from the chart) 04/09 21:24 20:27 Hospitalization Ordered by Sunny Black MD for Observation. Preliminary cg diagnosis is Chest pain, unspecified; Diabetes mellitus due to underlying condition with hyperglycemia. Bed requested for Telemetry/MedSurg (observation). Status is Observation. Condition is Stable. Problem is new. Symptoms have improved. cp 21:57 21:24 04/09/2020 20:27 Hospitalization Ordered by Sunny Black MD for Observation. mg2 Preliminary diagnosis is Chest pain, unspecified; Diabetes mellitus due to underlying condition with hyperglycemia. Bed requested for Telemetry/MedSurg (observation). Status is Observation. Condition is Stable. Problem is new. Symptoms have improved. cg
--- NOTE | 2020-04-09 20:28 | ER ---
Nurse's Notes [facility] Name: Ata Ramos Jr Age: 69 yrs Sex: Male : 1950 Arrival Date: 04/09/2020 Time: 19:07 Bed 6 Private MD: Diagnosis: Chest pain, unspecified;Diabetes mellitus due to underlying condition with hyperglycemia Presentation: 04/09 19:21 Chief complaint: Patient states: "I am having chest pressure and high blood sugar. my jd3 monitor just says high.". Coronavirus screen: At this time, the client does not indicate any symptoms associated with coronavirus-19. Ebola Screen: Patient negative for fever greater than or equal to 101.5 degrees Fahrenheit, and additional compatible Ebola Virus Disease symptoms. Initial Sepsis Screen: Does the patient meet any 2 criteria? No. Patient's initial sepsis screen is negative. Does the patient have a suspected source of infection? No. Patient's initial sepsis screen is negative. Risk Assessment: Do you want to hurt yourself or someone else? Patient reports no desire to harm self or others. Onset of symptoms was April 09, 2020. 19:21 Method Of Arrival: Ambulatory jd3 19:21 Acuity: TORRES 3 jd3 Historical: - Allergies: 19:23 Codeine; jd3 - Home Meds: 19:23 fenofibrate 160 mg Oral tab 1 tab once daily [Active]; gabapentin 100 mg Oral tab jd3 [Active]; hydrochlorothiazide 12.5 mg Oral tab 1 cap once daily [Active]; metformin 500 mg Oral tab 1 tab 2 times per day [Active]; prednisone 5 mg Oral tab once daily [Active]; tamsulosin 0.4 mg Oral cp24 1 cap once daily [Active]; metoprolol tartrate 25 mg Oral tab 1 tab 2 times per day [Active]; Zytiga 250 mg Oral tab 4 tabs once daily [Active]; - PMHx: 19:23 Hypertension; neuropathy; Diabetes - NIDDM; Cancer; Prostate cancer in remission; jd3 "fluid retention"; - PSHx: 19:23 Cholecystectomy; R knee replacement; right foot; jd3 - Immunization history:: Adult Immunizations up to date. - Social history:: Smoking status: Patient denies any tobacco usage or history of. Screenin:39 Abuse screen: Denies threats or abuse. Denies injuries from another. Nutritional mg2 screening: No deficits noted. Tuberculosis screening: No symptoms or risk factors identified. Fall Risk IV access (20 points). Assessment: 19:37 General: Appears in no apparent distress. comfortable, Behavior is calm, cooperative. mg2 Pain: Complains of pain in chest Pain does not radiate. Quality of pain is described as aching, Pain began gradually, 1 hour ago. Is intermittent. Neuro: Level of Consciousness is awake, alert, obeys commands, Oriented to person, place, time, situation. Cardiovascular: Capillary refill < 3 seconds Patient's skin is warm and dry. Respiratory: Airway is patent Respiratory effort is even, unlabored, Respiratory pattern is regular, symmetrical. GI: No signs and/or symptoms were reported involving the gastrointestinal system. : No signs and/or symptoms were reported regarding the genitourinary system. EENT: No signs and/or symptoms were reported regarding the EENT system. Derm: Skin is intact, is healthy with good turgor, Skin is pink, warm \\T\\ dry. normal. Musculoskeletal: Circulation, motion, and sensation intact. Capillary refill < 3 seconds. 20:04 Reassessment: Patient and/or family updated on plan of care and expected duration. Pain ea level reassessed. Patient is alert, oriented x 3, equal unlabored respirations, skin warm/dry/pink. Critical results for glucose 682 provider notified. 21:54 Reassessment: Patient and/or family updated on plan of care and expected duration. Pain ea level reassessed. Patient is alert, oriented x 3, equal unlabored respirations, skin warm/dry/pink. Pt admitted to fourth floor left ED via wheelchair tolerated well. Vital Signs: 19:24 BP 95 / 77; Pulse 93; Resp 17 S; Temp 97.6(TE); Pulse Ox 97% on R/A; Weight 98.88 kg jd3 (R); Height 6 ft. 0 in. (182.88 cm) (R); Pain 8/10; 19:39 BP 117 / 71; Pulse 89; Resp 18; Pulse Ox 96% on R/A; mg2 20:14 BP 109 / 67; Pulse 87; Resp 18; Pulse Ox 97% ; ea 21:54 BP 98 / 54; Pulse 85; Resp 16; Pulse Ox 98% ; ea 19:24 Body Mass Index 29.57 (98.88 kg, 182.88 cm) jd3 ED Course: 19:07 Patient arrived in ED. as 19:16 Leland Villafuerte PA is PHCP. cp 19:16 Gary Wyatt MD is Attending Physician. cp 19:20 No provider procedures requiring assistance completed. EKG done, by ED staff, reviewed mg2 by Leland BLANCO. Inserted saline lock: 20 gauge in left forearm, using aseptic technique. Blood collected. 19:21 Triage completed. jd3 19:25 Arm band placed on. EKG completed in triage. Results shown to MD. jd3 19:31 Wayne Stearns, TERRIE is Primary Nurse. mg2 19:39 Patient has correct armband on for positive identification. traffic monitor specialist on. Pulse mg2 ox on. NIBP on. Door closed. 20:00 XRAY Chest (1 view) In Process Unspecified. EDMS 20:26 Sunny Blakc MD is Hospitalizing Provider. cp 21:30 IV discontinued, intact, bleeding controlled, No redness/swelling at site. Pressure mg2 dressing applied. 21:35 Inserted saline lock: 20 gauge in right antecubital area, using aseptic technique. mg2 Blood collected. 21:46 Patient maintains SpO2 saturation greater than 95% on room air. mg2 Administered Medications: 19:40 Drug: Zofran (Ondansetron) 4 mg Route: IVP; Site: left antecubital; ea 20:25 Follow up: Response: No adverse reaction mg2 19:44 Drug: NS 0.9% 1000 ml Route: IV; Rate: 1 bolus; Site: left antecubital; ea 21:37 Follow up: Response: No adverse reaction; IV Status: Completed infusion; IV Intake: mg2 1000ml 19:44 Drug: fentaNYL (PF) 25 mcg Route: IVP; Site: left antecubital; ea 20:25 Follow up: Response: No adverse reaction mg2 19:45 Drug: Aspirin Chewable Tablet 324 mg Route: PO; ea 20:25 Follow up: Response: No adverse reaction mg2 19:51 Drug: Insulin Regular Human 10 units {Co-Signature: nick (Meli Perez RN).} Route: IVP; mg2 Site: left antecubital; 21:37 Follow up: Response: No adverse reaction; Blood sugar is lowered mg2 21:35 Drug: Insulin Regular Human 5 units {Co-Signature: nick (Meli Perez RN).} Route: IVP; mg2 Site: right antecubital; Intake: 21:37 IV: 1000ml; Total: 1000ml. mg2 Outcome: 20:27 Decision to Hospitalize by Provider. cp 21:54 Condition: stable ea 21:54 Instructed on the need for admit, Demonstrated understanding of instructions. 21:56 Admitted to Tele accompanied by tech, via wheelchair, room 407, with chart, Report mg2 called to TERRIE Roldan 21:57 Patient left the ED. mg2 Signatures: Dispatcher [employer] Kayla Matute Corey, PA PA cp Antunez, Elena, RN RN ea Davies, Jonathon, RN RN jd3 Gardose, Michele, RN RN adi Perez RN, ea Corrections: (The following items were deleted from the chart) 21:46 21:46 IV discontinued, intact, bleeding controlled, No redness/swelling at site. mg2 Pressure dressing applied, mg2
--- NOTE | 2020-04-09 22:16 | P.HP ---
Certification for Inpatient Patient admitted to: Observation With expected LOS: <2 Midnights Patient will require the following post-hospital care: None Practitioner: I am a practitioner with admitting privileges, knowledge of patient current condition, hospital course, and medical plan of care. Services: Services provided to patient in accordance with Admission requirements found in Title 42 Section 412.3 of the Code of Federal Regulations <Josh Carbajal - Last Filed: 04/09/20 22:10> Patient History Date of Service: 04/09/20 Primary Care Provider: Dr. Jones Reason for admission: Chest pain History of Present Illness: 69-year-old male with history of hypertension, diabetes mellitus type 2, history of prostate cancer presents emergency department for chest pain. Patient reports that around 1700 today he was sitting back watching a football game when he began to have pressure-like chest pain with associated shortness of breath and tingling of the left arm. Patient reports that he had the pain intermittently for approximately 3 hr. Pain was not relieved or exacerbated by anything in particular. Patient reports a negative stress test approximately 4- 5 years ago but no further workup. During his evaluation in the emergency department patient was also found to be severely hyperglycemic with blood sugars 682 can likely dehydrated with sodium 131, creatinine 1.74 GFR 39. Patient's baseline GFR appears to be around 60. ED provider wishes to admit patient for further evaluation and management. When I saw the patient in the emergency department is awake, alert, oriented x3. Patient states pain is relieved at this time. Patient will be admitted under observation and telemetry. - Past Medical/Surgical History Diabetic: Yes -: hypertension -: Diabetes mellitus type 2 -: Prostate cancer -: cholecysectomy -: knee surgey -: toe surgery Psychosocial/ Personal History: Patient lives at home - Family History Sister -: Blood disorders, Other (see notes) (Unknown blood clots) - Social History Smoking Status: Former smoker Alcohol use: Yes CD- Drugs: No Caffeine use: Yes Place of Residence: Home <Josh Carbajal - Last Filed: 04/09/20 22:10> Date of Service: 04/12/20 <Sunny Black - Last Filed: 04/12/20 14:34> Allergies codeine Allergy (Intermediate, Verified 04/09/20 23:12) Itching/Hives/Rash Home Medications: Atorvastatin Calcium [Lipitor] 40 mg PO BEDTIME 04/10/20 Gabapentin [Gralise] 300 mg PO DAILY 04/10/20 Insulin Degludec [Tresiba Flextouch U-100] 10 units SQ BEDTIME 04/10/20 Metformin ER [Glucophage ER*] 500 mg PO BIDWM 04/10/20 hydroCHLOROthiazide [Hydrochlorothiazide*] 12.5 mg PO BID 04/10/20 Review of Systems Respiratory: Cough, Shortness of Breath, SOB with Excertion, As per HPI <Josh Carbajal - Last Filed: 04/09/20 22:10> Physical Examination - Physical Exam General: Alert, In no apparent distress HEENT: Atraumatic, PERRLA, Mucous membr. moist/pink Neck: Supple, 2+ carotid pulse no bruit, No LAD, Without JVD or thyroid abnormality Respiratory: Clear to auscultation bilaterally, Normal air movement Cardiovascular: Regular rate/rhythm, Normal S1 S2 Gastrointestinal: Normal bowel sounds, No tenderness Musculoskeletal: No tenderness Integumentary: No rashes Neurological: Normal gait, Normal speech, Normal strength at 5/5 x4 extr, Normal tone, Normal affect - Studies Laboratory Data (last 24 hrs) 04/09/20 19:30: PT 11.5, INR 0.97 04/09/20 19:30: WBC 8.4, Hgb 13.6, Hct 40.4, Plt Count 260 04/09/20 19:30: Sodium 131 L, Potassium 4.9, BUN 33 H, Creatinine 1.74 H, Glucose 682 H*, Magnesium 2.0, Total Bilirubin 0.5, AST 23, ALT 29, Alkaline Phosphatase 98 <Josh Carbajal - Last Filed: 04/09/20 22:10> Assessment and Plan - Plan Assessment Chest pain rule out ACS Diabetes mellitus type 2-uncontrolled Hypertension Hyperlipidemia Plan Chest pain rule out ACS: -serial troponins, monitor on telemetry -aspirin, statin, beta otilia therapy -Cardiology consult -lipid and thyroid panel with morning labs Diabetes mellitus type 2-uncontrolled: -a.c. HS Accu-Cheks, sliding scale insulin therapy -A1c with morning labs Hypertension: -obtain and continue home meds Hyperlipidemia: -obtain and continue home meds, lipid panel with morning labs Discharge Plan: Home Plan to discharge in: 24 Hours - Advance Directives Does patient have a Living Will: No Does patient have a Durable POA for Healthcare: Yes - Code Status/Comfort Care Code Status Assessed: Yes (Full code) Critical Care: No Time Spent Managing Pts Care (In Minutes): 55 <Josh Carbajal - Last Filed: 04/09/20 22:10> - Plan Plan of care reviewed with Josh Carbajal. Agree with plan as noted above. <Sunny Black - Last Filed: 04/12/20 14:34>
[2020-04-09] MEDS ORDERED: MORPHINE 2 MG/ML SYR IV PRN (22:34)
[2020-04-09] MEDS ORDERED: ONDANSETRON 4 MG/2 ML VIAL IV PRN (22:34)
[2020-04-09] MEDS ORDERED: ACETAMINOPHEN 500 MG TAB PO PRN (22:34)
[2020-04-09] MEDS: NA CHLORIDE 0.9% 1,000 ML IV SCH (23:40)
[2020-04-09] MEDS: INSULIN -REGULAR HUMAN 50 UNIT/0.5 ML ML SQ SCH (23:54)
[2020-04-10 02:27] VITALS: O2SAT 98
[2020-04-10 03:27] VITALS: BMI 30.7
[2020-04-10 06:28] LABS: Absolute Lymphocytes (CBC) 1.1 K/uL (0.7-4.9); Hematocrit 40.1 % (39.6-49.0); Lymphocytes % 20.3 % (15.3-44.8); MPV 7.8 fL (7.6-11.3); RBC Red Blood Cell Count 4.51 M/uL (4.33-5.43)
[2020-04-10 06:51] LABS: BUN Blood Urea Nitrogen 25 mg/dL (7-18); Bicarbonate 27 mmol/L (21-32); Glucose Level 302 mg/dL (74-106); HDL Cholesterol 38 mg/dL (40-60); Potassium 3.9 mmol/L (3.5-5.1); Sodium Level 137 mmol/L (136-145); Troponin I < 0.02 ng/mL (0.0-0.045)
[2020-04-10 07:04] LABS: LDL, Direct 60 mg/dL (100-129)
[2020-04-10] MEDS: ASPIRIN EC 81 MG TAB PO SCH (09:19)
[2020-04-10] MEDS: ENOXAPARIN 40 MG/0.4 ML SQ SCH (09:19)
[2020-04-10] MEDS: METFORMIN ER 500 MG TAB PO SCH ×2 (09:19→16:40)
[2020-04-10] MEDS: GABAPENTIN 300 MG CAP PO SCH (09:19)
[2020-04-10] MEDS: INSULIN -REGULAR HUMAN 50 UNIT/0.5 ML ML SQ SCH ×4 (09:20→21:38)
[2020-04-10] MEDS: NA CHLORIDE 0.9% 1,000 ML IV SCH ×2 (09:21→16:30)
[2020-04-10] MEDS ORDERED: GLUCAGON 1 MG/VIAL IM PRN (16:02)
[2020-04-10] MEDS ORDERED: D50W 25 GM/50 ML SYRINGE IV PRN (16:02)
--- NOTE | 2020-04-10 16:09 | P.PN ---
Subjective Date of Service: 04/10/20 Primary Care Provider: Dr. Jones Chief Complaint: Chest pain Subjective: Improving (Chest pain resolved overnight, reports feeling a little bit better today) Review of Systems 10-point ROS is otherwise unremarkable Physical Examination - Vital Signs Temperature: 98.5 F Blood Pressure: 135/77 Pulse: 76 Respirations: 18 Pulse Ox (%): 98 - Physical Exam General: Alert, In no apparent distress HEENT: Sclerae nonicteric Neck: Supple Respiratory: Clear to auscultation bilaterally Cardiovascular: No edema, Regular rate/rhythm Gastrointestinal: Soft and benign, No tenderness Musculoskeletal: No tenderness Integumentary: No rashes Neurological: Normal speech, Normal affect - Studies Laboratory Data (last 24 hrs) 04/09/20 19:30: PT 11.5, INR 0.97 04/09/20 19:30: WBC 8.4, Hgb 13.6, Hct 40.4, Plt Count 260 04/09/20 19:30: Sodium 131 L, Potassium 4.9, BUN 33 H, Creatinine 1.74 H, Glucose 682 H*, Magnesium 2.0, Total Bilirubin 0.5, AST 23, ALT 29, Alkaline Phosphatase 98 Assessment & Plan Physician Review Additional Text: Chest pain rule out ACS Diabetes mellitus type 2-uncontrolled NAYANA Hypertension Hyperlipidemia Plan Chest pain rule out ACS: -initial troponins negative, continue to trend, monitor on telemetry -aspirin, statin, beta otilia therapy -Cardiology consulted - patient another echo and stress test tomorrow Diabetes mellitus type 2-uncontrolled: -A1c: 13.0 -glucose remaining high, will start Lantus 20 units, continue high-dose sliding scale NAYANA Appears prerenal, improved with IVF Hypertension: -the patient has had low blood pressure, holding home meds for now Hyperlipidemia: -continue statin Dispo: pending echo and stress test tomorrow; anticipate Dc home when ready Time Spent Managing Pts Care (In Minutes): 35
[2020-04-10] MEDS: INSULIN GLARGINE 100 UNITS/ML SQ SCH (16:39)
[2020-04-10] MEDS ORDERED: ATORVASTATIN 40 MG TAB PO SCH (21:00)
[2020-04-11] MEDS: NA CHLORIDE 0.9% 1,000 ML IV SCH ×2 (02:48→14:34)
[2020-04-11 04:28] LABS: Absolute Lymphocytes (CBC) 1.2 K/uL (0.7-4.9); Hematocrit 38.7 % (39.6-49.0); Lymphocytes % 27.7 % (15.3-44.8); RBC Red Blood Cell Count 4.36 M/uL (4.33-5.43)
[2020-04-11 04:36] LABS: Magnesium 1.9 mg/dL (1.8-2.4); Potassium 4.5 mmol/L (3.5-5.1)
[2020-04-11] MEDS: METFORMIN ER 500 MG TAB PO SCH ×2 (08:00→13:11)
[2020-04-11] MEDS: INSULIN -REGULAR HUMAN 50 UNIT/0.5 ML ML SQ SCH ×3 (08:43→17:14)
[2020-04-11] MEDS ORDERED: REGADENOSON 0.4 MG/5 ML SYR IV ONE (10:09)
--- NOTE | 2020-04-11 10:17 | CON ---
Date of Consultation: 04/10/2020 Reason For Consultation: Chest pain. History Of Present Illness: Mr. Ramos is a 69-year-old male. Has a history of chronic renal dise ase, prostate cancer, neuropathy, hypertension and diabetes, but no previous cardiac history. He had a negative cardiac workup in the office many years ago. He came in with chest pain and shortness of breath that lasted for about 2 hours. It would last some times in 1-2 seconds and some times with l ast minute. No nausea, vomiting, diaphoresis, PND, orthopnea, pedal edema, palpitations, or syncope. He denied any fever or chills. He sees Dr. Jones, the primary care and Nephrology. He was ruled out for ID so far. His creatinine was 1.74. His glucose, however, was 682. His EKG showed left ve ntricular hypertrophy. He has had a history of previous carotid Doppler that was negative. Past Medical History: As stated above. Allergies: HE IS ALLERGIC TO CODEINE. Review of Systems: Negative. Social History: Negative. Family History: Negative. Medications: At home include insulin, metoprolol, Neurontin, Lipitor, metformin, and hydrochlorothia zide. Physical Examination: General: Mr. Ramos appeared little anxious, but otherwise in no acute distress. Vital Signs: Stable. He was afebrile. He was in sinus rhythm. HEENT: Negative. Neck: Supple without any bruit, lymphadenopathy, JVD, or thyromegaly. Chest: Clear to auscultation and percussion. Cardiac: Revealed a regular rhythm and rate. No murmurs, gallops, or rubs. Abdomen: Benign. Extremities: Revealed no clubbing, cyanosis, or edema. Diagnostic Data: As stated earlier. Impression And Plan: Atypical chest pain, lasts some times seconds and sometimes minutes. That is n ot exertional. He denied any nausea or vomiting or diaphoresis with it. He does get some shortness of breath with it. He was ruled out for myocardial infarction. I recommend to do an echocardiogram on him and a Lexiscan before he goes home. He has many risk factors including hypertension, diabetes , his age and gender, and his kidney disease. His diabetes needs to be much better controlled. He o bviously should probably on higher doses of insulin and maybe some other medications in addition to t hat. I will leave that up to Dr. Ledesma. His blood pressure is fairly well controlled. We will see what the stress test and an echocardiogram shows on 04/11/2020 before making further deci sions. ANDREZ/RED Voice ID: [id number] Report ID: [id number]
[2020-04-11] MEDS: ASPIRIN EC 81 MG TAB PO SCH (13:10)
[2020-04-11] MEDS: ENOXAPARIN 40 MG/0.4 ML SQ SCH (13:11)
[2020-04-11] MEDS: GABAPENTIN 300 MG CAP PO SCH (13:11)
--- NOTE | 2020-04-11 14:09 | RAD REPORT ---
EXAM DESCRIPTION: NM - Rest Stress Cardiac Imaging - 04/11/2020 12:56 pm CLINICAL HISTORY: Chest pain. COMPARISON: None. TECHNIQUE: The patient was administered approximately 10mCi of Tc 99m Sestamibi prior to resting SPE CT imaging of the heart. The patient was then administered approximately 30 mCi of Tc 99m Sestamibi f ollowing exercise or pharmacologic stress. Multiplanar SPECT images were reviewed. FINDINGS: There is uniformity of radiotracer uptake involving the entire left ventricular myocardiu m on rest and stress images. The left ventricular ejection fraction equals 51% IMPRESSION: Negative for a myocardial perfusion defect
[2020-04-11 17:08] VITALS: BP 138/84; TEMP 96.8
[2020-04-11] MEDS: INSULIN GLARGINE 100 UNITS/ML SQ SCH (17:13)
--- NOTE | 2020-04-11 17:51 | P.DS ---
Admission Date: 04/09/20 Discharge Date: 04/11/20 Primary Care Provider: Dr. Jones Disposition: ROUTINE DISCHARGE Discharge Condition: GOOD Reason for Admission: Chest pain Consultations: Cardiology - Dr. Pedraza Procedures: CXR (04/09): lungs appear clear of acute infiltrate. heart is normal size. Nuclear Stress Test (04/11): negative for myocardial perfusion defect. Problem List Angina Diabetes mellitus type 2-uncontrolled NAYANA Hypertension Hyperlipidemia Brief History of Present Illness: 69yo, PMH: HTN, DM2 (insulin dependent), h/o prostate cancer who presented to ED with acute onset of pressure-like left-sided chest pain with associated SOB and left arm tingling. He was sitting back and watching a football game when this occurred. The pain occurred intermittently for approximately 3 hr. Patient reported a negative stress test approximately 4-5 years ago but no further marj p. During his evaluation in the emergency department patient was also found to be severely hyperglycemic with blood glucose: 682, with sodium 131, creatinine 1.74 GFR 39. Patient reported he was working for several hours outside chopping down trees, was very sweaty, and didn't drink any water. Hospital Course: by problem: Chest pain - he was ruled out ACS. Cardiology was consulted, troponins were negative x 3 and he had a negative pharmacologic stress test. Acute Kidney Injury - due to dehydration, resolved with IVF hydration. Cr: 1.74 -> 1.04 IDDM2 / Hyperglycemia - Hgb A1c: 13.0 (04/10). Patient was recently started on Tresiba 15u in AM by PCP ~1-2 days prior to admission. Patient required >50 units of insulin /day split across 20u lantus + sliding scale, and was still having glucose readings 200-300. He was discharged home with instructions to increase Tresiba to 30u in AM and to f/u with PCP in ~1 week. Vital Signs/Physical Exam: Temp Pulse Resp BP Pulse Ox 96.8 F 76 16 138/84 95 04/11/20 16:00 04/11/20 16:00 04/11/20 16:00 04/11/20 16:00 04/11/20 16:00 General: Alert, In no apparent distress HEENT: Sclerae nonicteric Respiratory: Clear to auscultation bilaterally, Normal air movement Cardiovascular: No edema, Regular rate/rhythm, Normal S1 S2 Gastrointestinal: Soft and benign, Non-distended, No tenderness Musculoskeletal: No tenderness Integumentary: No rashes Neurological: Normal speech, Normal affect Laboratory Data at Discharge: WBC 4.5 K/uL (4.3-10.9) 04/11/20 03:22 Hgb 13.3 g/dL (13.6-17.9) L 04/11/20 03:22 Hct 38.7 % (39.6-49.0) L 04/11/20 03:22 Plt Count 251 K/uL (152-406) 04/11/20 03:22 PT 11.5 SECONDS (9.5-12.5) 04/09/20 19:30 INR 0.97 04/09/20 19:30 Sodium 140 mmol/L (136-145) 04/11/20 03:22 Potassium 4.5 mmol/L (3.5-5.1) 04/11/20 03:22 BUN 18 mg/dL (7-18) 04/11/20 03:22 Creatinine 1.04 mg/dL (0.55-1.3) 04/11/20 03:22 Glucose 291 mg/dL (74-106) H 04/11/20 03:22 Magnesium 1.9 mg/dL (1.8-2.4) 04/11/20 03:22 Total Bilirubin 0.5 mg/dL (0.2-1.0) 04/09/20 19:30 AST 23 U/L (15-37) 04/09/20 19:30 ALT 29 U/L (12-78) 04/09/20 19:30 Alkaline Phosphatase 98 U/L (45-117) 04/09/20 19:30 Troponin I < 0.02 ng/mL (0.0-0.045) 04/10/20 06:03 Triglycerides 405 mg/dL (<150) H 04/10/20 06:03 Cholesterol 167 mg/dL (<200) 04/10/20 06:03 LDL Cholesterol Direct 60 mg/dL (100-129) L 04/10/20 06:03 HDL Cholesterol 38 mg/dL (40-60) L 04/10/20 06:03 Cholesterol/HDL Ratio 4.39 04/10/20 06:03 Home Medications: Atorvastatin Calcium [Lipitor] 40 mg PO BEDTIME 04/10/20 Gabapentin [Gralise] 300 mg PO DAILY 04/10/20 Insulin Degludec [Tresiba Flextouch U-100] 10 units SQ BEDTIME 04/10/20 Metformin ER [Glucophage ER*] 500 mg PO BIDWM 04/10/20 hydroCHLOROthiazide [Hydrochlorothiazide*] 12.5 mg PO BID 04/10/20 Patient Discharge Instructions: Increase Tresiba to 30 units per day. follow up with PCP in 1 week Diet: ADA Activity: Ad jeovanny Followup: Alok Pedraza MD [ACTIVE - CAN ADMIT] - NONE,NONE [Primary Care Provider] - Time spent managing pt's care (in minutes): 35
--- NOTE | 2020-04-12 07:22 | TREADPHA ---
DX: CHEST PAIN Date of Study: 04/11/2020 Ht: 6' 0 " Wt: 226 lb 8 oz Consulting Physician: ROLAND MEDICATIONS: ASPIRIN, LIPITOR, LOVENOX, NOVOLIN-R, METROP HISTORY: 69 YEAR OLD MALE, COMPLAINTS OF CHEST PAIN. HISTORY OF PROSTATE CANCER, HYPERTENSION, HYPERLIPIDEMIA, DIABETES MELLLITUS. NON-SMOKER, , OCCASIONAL PHYSICIAL EXAMINATION: RESTING B.P.: 139/93 RESTING H.R.: 67 RESTING EKG: NORMAL SINUS RHYTHM WITH T DECREASED IN INFERIOR LEAD PROTOCOL: PHARMACOLOGIC EXERCISE TIME: 3:30 B.P. AT [place] STRESS: 148/85 IMPRESSION: LEXISCAN INJECTED FOLLOWED BY CARDIOLITE PER PROTOCOL. SEE NUCLEAR MEDICINE REPORT. NO SUPRAVENTRICULAR TACHYCARDIA, VENTRICULAR TACHYCARDIA, PREMATURE VENTRICULAR COMPLEXES. TWO PREMATURE VENTRICULAR COMPLEXES PRIOR TO STUDY. PATIENT REPORTS NO CHEST. NO ELECTROCARDIOGRAM WITH LEXISCAN.
--- NOTE | 2020-04-12 07:30 | ECHO ---
HEIGHT: 6 ft 0 in WEIGHT: 226 lb 8 oz DATE OF STUDY: 04/11/[address]: Alok Pedraza MD 2-DIMENSIONAL: YES M.MODE: YES DOPPLER: YES COLOR FLOW: YES TDS: PORTABLE: DEFINITY: BUBBLE STUDY: DIAGNOSIS: CHEST PAIN CARDIAC HISTORY: CATHERIZATION: NO SURGERY: NO PROSTHETIC VALVE: NO PACEMAKER: NO MEASUREMENTS (cm) DIASTOLIC (NORMALS) SYSTOLIC (NORMALS) IVSd 41.0 (0.6-1.2) LA Diam 3.1 (1.9-4.0) LVEF 55-60% LVIDd 4.4 (3.5-5.7) LVIDs 2.7 (2.0-3.5) %FS 39% LVPWd 1.0 (0.6-1.2) Ao Diam 3.5 (2.0-3.7) 2 DIMENSIONAL ASSESSMENT: RIGHT ATRIUM: NORMAL LEFT ATRIUM: NORMAL RIGHT VENTRICLE: NORMAL LEFT VENTRICLE: NORMAL TRICUSPID VALVE: MILD TRICUSPID REGURGITATION MITRAL VALVE: NORMAL PULMONIC VALVE: NORMAL AORTIC VALVE: NORMAL PERICARDIAL EFFUSION: NONE AORTIC ROOT: NORMAL LEFT VENTRICULAR WALL MOTION: NORMAL DOPPLER/COLOR FLOW: NORMAL COMMENTS: NORMAL LEFT VENTRICULAR EJECTION FRACTION 55-60% WITH NORMAL WALL MOTION. MILD TRICUSPID REGURGITATION. TECHNOLOGIST: MILO DIANA
--- NOTE | 2020-04-12 09:00 | PN ---
Date of Progress Note: 04/11/2020 Mr. Ramos has multiple cardiac risk factors for heart disease, came in with atypical chest pain, n egative troponin. Echocardiogram and Lexiscan today were ordered. He had a normal echo. Lexiscan s howed no evidence of ischemia. He had not had any further chest pain since he has been here. His te lemetry remains normal. I am comfortable with him going home on his home medication. Consider addin g proton pump inhibitors for possible reflux disease. Case was discussed with Dr. Black. ANDREZ/RED Voice ID: [id number] Report ID: [id number]
== END 2020-04-11 18:10 | disposition home or self-care (01) ==
LOC: ER 19:06 → ERHOLD 21:09 → 4TH 21:49 → 2ND 04-11 15:32
PROVIDERS: ADMIT Hospitalist; ATTEND Hospitalist
DX: I20.9 Angina pectoris, unspecified (principal); E11.65 Type 2 diabetes mellitus with hyperglycemia; N17.9 Acute kidney failure, unspecified; E78.5 Hyperlipidemia, unspecified; Z20.828 Contact with and (suspected) exposure to other viral communicable diseases; R94.31 Abnormal electrocardiogram [ECG] [EKG]; E86.0 Dehydration; Z85.46 Personal history of malignant neoplasm of prostate; Z79.4 Long term (current) use of insulin; E11.40 Type 2 diabetes mellitus with diabetic neuropathy, unspecified; E11.22 Type 2 diabetes mellitus with diabetic chronic kidney disease; I12.9 Hypertensive chronic kidney disease with stage 1 through stage 4 chronic kidney disease, or unspecified chronic kidney disease; N18.9 Chronic kidney disease, unspecified; Z87.891 Personal history of nicotine dependence; Z96.651 Presence of right artificial knee joint
CPT/HCPCS: 93005; 93017; 93306; 85025 ×3; 80048 ×3; 36415 ×2; 82010; 83721; 83735 ×3; 85610; 80061; 82947 ×10; 80076; 84443; 81003; 83036; 84484 ×3; 84439; 83880; 71045; 78452; 99285; U0002; J1650 ×2; J3010; J2785; J7030 ×5; J2405; A9500; J1815